=== PATIENT | male | born 1960 | race African-American/Black ===

== ENCOUNTER 2017-10-04 07:24 | Emergency (ER) | payer MEDICAID ==
[~2017-10-04] VITALS: Ht 188 cm; Wt 79.4 kg
[2017-10-04] MEDS ORDERED: Albuterol ud Inhalation ONE (07:26)
[2017-10-04] MEDS ORDERED: Ipratropium 0.02% Inh Soln 2.5ml UD HHN ONE (07:30)
[2017-10-04] MEDS ORDERED: Albuterol ud Inhalation HHN ONE ×2 (07:30)
[2017-10-04 07:47] LABS: BASOPHILS % (AUTO) 2.6 % (0.0-2.0); EOSINOPHILS % (AUTO) 9.2 % (0.0-3.0); HEMATOCRIT 44.4 % (42.0-52.0); HEMOGLOBIN 14.5 G/DL (14.2-18.0); LYMPHOCYTES % (AUTO) 27.6 % (20.0-45.0); MEAN CORPUSCULAR VOLUME 85 FL (80-99); MONOCYTES % (AUTO) 8.2 % (1.0-10.0); NEUTROPHILS % (AUTO) 52.4 % (45.0-75.0); PLATELET COUNT 160 K/UL (150-450); RED BLOOD COUNT 5.25 M/UL (4.70-6.10); RED CELL DISTRIBUTION WIDTH 13.7 % (11.6-14.8); WHITE BLOOD COUNT 4.5 K/UL (4.8-10.8)
[2017-10-04 07:50] VITALS: BP 142/87
[2017-10-04 08:18] LABS: ANION GAP 7 mmol/L (5-15); BLOOD UREA NITROGEN 15 mg/dL (7-18); CALCIUM 9.3 MG/DL (8.5-10.1); CARBON DIOXIDE 26 MMOL/L (21-32); CHLORIDE 104 MMOL/L (98-107); SODIUM 137 MMOL/L (136-145)
--- NOTE | 2017-10-04 08:18 | Emergency Room Report ---
History of Present Illness General Chief Complaint: Dyspnea/Respdistress Source: Patient Present Illness HPI This patient is brought in by EMS for respiratory distress. This patient has a history of COPD and asthma. He states he only uses an albuterol inhaler. He states that over the past couple days he has had tightness in his chest and shortness of breath consistent with a COPD exacerbation. He states that this morning about 3 hours ago he had sudden and severe worsening of his symptoms. He has had cough but denies sputum production. He denies fever or chills. He denies nausea or vomiting. He denies chest pain. He states that he stopped smoking one month ago. He has no other complaints. Allergies: Coded Allergies: No Known Allergies (Unverified , 10/04/17) Patient History Past Medical History: see triage record, asthma, COPD Social History: Denies: smoking - Quit 1 month ago, alcohol use, drug use Reviewed Nursing Documentation: PMH: Agreed; PSxH: Agreed Nursing Documentation-PMH Hx Asthma: Yes Hx COPD: Yes Review of Systems All Other Systems: negative except mentioned in HPI Physical Exam Vital Signs Date Time Temp Pulse Resp B/P (MAP) Pulse Ox O2 Delivery O2 Flow Rate FiO2 10/04/17 07:17 97.9 76 15 143/73 100 Room Air 97.9 10/04/17 07:35 21 Sp02 EP Interpretation: reviewed, normal General Appearance: no apparent distress, alert, GCS 15, non-toxic Head: normocephalic, atraumatic Eyes: bilateral eye normal inspection, bilateral eye PERRL ENT: hearing grossly normal, normal pharynx, no angioedema, normal voice Neck: full range of motion, supple/symm/no masses Respiratory: chest non-tender, respiratory distress, accessory muscle use, wheezing, expiration Cardiovascular #1: no edema, tachycardia Gastrointestinal: normal inspection, non-distended Rectal: deferred Musculoskeletal: back normal, gait/station normal, normal range of motion Neurologic: alert, oriented x3, responsive, motor strength/tone normal, sensory intact, speech normal Psychiatric: judgement/insight normal, memory normal, mood/affect normal, no suicidal/homicidal ideation Skin: normal color, no rash, warm/dry, well hydrated Medical Decision Making Diagnostic Impression: Primary Impression: COPD exacerbation ER Course This patient has a clinical presentation consistent with COPD/asthma exacerbation. Patient has a history of COPD and has wheezing on physical exam. The patient was given albuterol and Atrovent nebulizer treatments. The patient was also given prednisone orally. The patient had significant improvement in subjective shortness of breath. The patient's lung exam improved significantly. I will also treat the patient with a course of antibiotics as this has been shown to improve the course of an asthma/COPD exacerbation. The patient declined a chest x-ray. The patient was given close return precautions and followup instructions. Laboratory Tests Test 10/04/17 07:30 White Blood Count 4.5 K/UL (4.8-10.8) L Red Blood Count 5.25 M/UL (4.70-6.10) Hemoglobin 14.5 G/DL (14.2-18.0) Hematocrit 44.4 % (42.0-52.0) Mean Corpuscular Volume 85 FL (80-99) Mean Corpuscular Hemoglobin 27.6 PG (27.0-31.0) Mean Corpuscular Hemoglobin Concent 32.7 G/DL (32.0-36.0) Red Cell Distribution Width 13.7 % (11.6-14.8) Platelet Count 160 K/UL (150-450) Mean Platelet Volume 8.4 FL (6.5-10.1) Neutrophils (%) (Auto) 52.4 % (45.0-75.0) Lymphocytes (%) (Auto) 27.6 % (20.0-45.0) Monocytes (%) (Auto) 8.2 % (1.0-10.0) Eosinophils (%) (Auto) 9.2 % (0.0-3.0) H Basophils (%) (Auto) 2.6 % (0.0-2.0) H Sodium Level 137 MMOL/L (136-145) Potassium Level 5.0 MMOL/L (3.5-5.1) Chloride Level 104 MMOL/L (98-107) Carbon Dioxide Level 26 MMOL/L (21-32) Anion Gap 7 mmol/L (5-15) Blood Urea Nitrogen 15 mg/dL (7-18) Creatinine 1.0 MG/DL (0.55-1.30) Estimate Glomerular Filtration Rate > 60 mL/min (>60) Glucose Level 104 MG/DL (74-106) Calcium Level 9.3 MG/DL (8.5-10.1) Total Bilirubin 0.8 MG/DL (0.2-1.0) Aspartate Amino Transferase (AST) 43 U/L (15-37) H Alanine Aminotransferase (ALT) 34 U/L (12-78) Alkaline Phosphatase 118 U/L (46-116) H Total Protein 7.8 G/DL (6.4-8.2) Albumin 3.5 G/DL (3.4-5.0) Globulin 4.3 g/dL Albumin/Globulin Ratio 0.8 (1.0-2.7) L Laboratory Tests Test 10/04/17 07:30 White Blood Count 4.5 K/UL (4.8-10.8) L Red Blood Count 5.25 M/UL (4.70-6.10) Hemoglobin 14.5 G/DL (14.2-18.0) Hematocrit 44.4 % (42.0-52.0) Mean Corpuscular Volume 85 FL (80-99) Mean Corpuscular Hemoglobin 27.6 PG (27.0-31.0) Mean Corpuscular Hemoglobin Concent 32.7 G/DL (32.0-36.0) Red Cell Distribution Width 13.7 % (11.6-14.8) Platelet Count 160 K/UL (150-450) Mean Platelet Volume 8.4 FL (6.5-10.1) Neutrophils (%) (Auto) 52.4 % (45.0-75.0) Lymphocytes (%) (Auto) 27.6 % (20.0-45.0) Monocytes (%) (Auto) 8.2 % (1.0-10.0) Eosinophils (%) (Auto) 9.2 % (0.0-3.0) H Basophils (%) (Auto) 2.6 % (0.0-2.0) H Sodium Level Pending Potassium Level Pending Chloride Level Pending Carbon Dioxide Level Pending Blood Urea Nitrogen Pending Creatinine Pending Estimate Glomerular Filtration Rate Pending Glucose Level Pending Calcium Level Pending Total Bilirubin Pending Aspartate Amino Transferase (AST) Pending Alanine Aminotransferase (ALT) Pending Alkaline Phosphatase Pending Total Protein Pending Albumin Pending Globulin Pending EKG Diagnostic Results Rate: normal Rhythm: NSR ST Segments: no acute changes Rhythm Strip Diag. Results EP Interpretation: yes Rate: 60's Rhythm: NSR, no PVC's, no ectopy Chest X-Ray Diagnostic Results Chest X-Ray Diagnostic Results : Indication: Shortness of Breath Last Vital Signs Date Time Temp Pulse Resp B/P (MAP) Pulse Ox O2 Delivery O2 Flow Rate FiO2 10/04/17 07:39 89 29 Room Air 21 10/04/17 07:35 100 10/04/17 07:17 97.9 143/73 97.9 Status: improved Disposition: HOME, SELF-CARE Scripts Azithromycin* (ZITHROMAX*) 250 Mg Tablet 250 MG ORAL see instructions, #6 TAB 0 Refills Take two tables once daily for 1 day, then one tablet once daily for 4 days. Prov: Ashley Lowe DO 10/04/17 Prednisone* (PREDNISONE*) 20 Mg Tablet 60 MG ORAL DAILY, #12 TAB Prov: Ashley Lowe DO 10/04/17 Albuterol Sulfate* (ALBUTEROL SULFATE MDI*) 8.5 Gm Hfa.aer.ad 2 PUFF INH Q4H PRN for cough/wheezing, #1 EA 0 Refills Prov: Ashley Lowe DO 10/04/17 Ashley Lowe DO Oct 04, 2017 08:18
[2017-10-04] MEDS ORDERED: PREDNISONE20 MG ORAL (08:22)
[2017-10-04] MEDS ORDERED: ALBUTEROL SULF8.5 GM INH (08:22)
[2017-10-04] MEDS ORDERED: ZITHROMAX250 MG ORAL (08:22)
[2017-10-04 08:23] LABS: ALANINE AMINOTRANSFERASE 34 U/L (12-78); ALBUMIN 3.5 G/DL (3.4-5.0); ALBUMIN/GLOBULIN RATIO 0.8 (1.0-2.7); ALKALINE PHOSPHATASE 118 U/L (46-116); ASPARTATE AMINO TRANSFERASE 43 U/L (15-37); BILIRUBIN,TOTAL 0.8 MG/DL (0.2-1.0)
[2017-10-04 09:00] VITALS: BP 142/87
--- NOTE | 2017-10-04 09:09 | Diagnostic Imaging Report ---
History: SOB Exam: XR CXR 1 VIEW Comparison: None available FINDINGS: The lungs are clear. The cardiac and mediastinal contours appear within limits. Flowing appearing right-sided thoracic osteophyte formation. IMPRESSION: No evidence of acute disease.
== END 2017-10-04 09:00 | disposition home or self-care (01) ==
LOC: EDBD 07:24 → EMR 07:30
DX: J44.1 Chronic obstructive pulmonary disease with (acute) exacerbation (principal)
CPT/HCPCS: 36415; 71045; 80053; 85025; 93005; 94640; 94664; 99284; J7512

== ENCOUNTER 2017-12-04 01:06 | Emergency (ER) | payer MEDICAID ==
[~2017-12-04] VITALS: Ht 188 cm; Wt 74.8 kg
[~2017-12-04 01:06] MED LIST: ALBUTEROL SULF8.5 GM INH; PREDNISONE20 MG ORAL; ZITHROMAX250 MG ORAL
--- NOTE | 2017-12-04 01:10 | Emergency Room Report ---
History of Present Illness General Chief Complaint: Dyspnea/Respdistress Source: Patient, EMS Present Illness HPI Patient is a 57-year-old male who presented after increased difficulty breathing. Patient brought in by EMS. The patient noted to have been increased shortness breath. He reports prior history of COPD. Allergies: Coded Allergies: No Known Allergies (Unverified , 10/04/17) Patient History Past Medical History: see triage record Reviewed Nursing Documentation: PMH: Agreed; PSxH: Agreed Nursing Documentation-PMH Past Medical History: No History, Except For Hx Asthma: Yes Hx COPD: Yes Review of Systems All Other Systems: negative except mentioned in HPI Physical Exam Vital Signs Date Time Temp Pulse Resp B/P (MAP) Pulse Ox O2 Delivery O2 Flow Rate FiO2 12/04/17 01:06 97.9 93 28 130/104 100 Room Air 97.9 Sp02 EP Interpretation: reviewed, normal General Appearance: normal inspection, alert, GCS 15, moderate distress, Chronically Ill Head: atraumatic ENT: normal ENT inspection, hearing grossly normal, normal voice Neck: normal inspection, full range of motion, supple, no bony tend Respiratory: normal inspection, no retraction, accessory muscle use, wheezing Cardiovascular #1: regular rate, rhythm, no edema Gastrointestinal: normal inspection, normal bowel sounds, non tender, soft, no guarding, no hernia Genitourinary: no CVA tenderness Musculoskeletal: normal inspection, back normal, normal range of motion Neurologic: normal inspection, alert, oriented x3, responsive, positive printer operator III-XII nml as tested, speech normal Psychiatric: normal inspection, judgement/insight normal, mood/affect normal Skin: normal inspection, normal color, no rash Medical Decision Making Diagnostic Impression: Primary Impression: COPD exacerbation ER Course patient presented for shortness of breath. Differential included but was not limited to anemia, pneumonia, pneumothorax, myocardial infarction, pericardial effusion, congestive heart failure, acidosis. The EKG interpreted by me showed normal sinus rhythm without acute ST or T wave changes. Patient was given steroids as well as breathing treatment with improvement in symptoms. The patient was noted be feeling better. Patient was discharged home. He is advised follow-up with his primary care physician for reexamination. Last Vital Signs Date Time Temp Pulse Resp B/P (MAP) Pulse Ox O2 Delivery O2 Flow Rate FiO2 12/04/17 01:06 97.9 93 28 130/104 100 Room Air 97.9 Status: improved Disposition: HOME, SELF-CARE Condition: Stable Scripts Prednisone* (PREDNISONE*) 20 Mg Tablet 40 MG ORAL DAILY, #10 TAB Prov: Jefferson Spaulding MD 12/04/17 Albuterol Sulfate* (ALBUTEROL SULFATE MDI*) 8.5 Gm Hfa.aer.ad 2 PUFF INH Q4H PRN for cough/wheezing, #1 EA 0 Refills Prov: Jefferson Spaulding MD 12/04/17 Jefferson Spaulding MD Dec 04, 2017 01:10
[2017-12-04] MEDS ORDERED: Albuterol/Ipratropium 3ml neb HHN ONE (01:15)
[2017-12-04] MEDS ORDERED: Solu-MEDROL 125mg Inj IVP ONE (01:15)
[2017-12-04] MEDS ORDERED: Albuterol ud Inhalation HHN ONE (02:15)
[2017-12-04 02:34] VITALS: BP 121/87
[2017-12-04] MEDS ORDERED: ALBUTEROL SULF8.5 GM INH (03:31)
[2017-12-04] MEDS ORDERED: PREDNISONE20 MG ORAL (03:31)
[2017-12-04 04:48] VITALS: BP 115/75
--- NOTE | 2017-12-04 10:32 | Diagnostic Imaging Report ---
Indication: Shortness of breath Technique: One view of the chest Comparison: 11/21/2017 Findings: Lungs and pleural spaces are clear. The heart size is normal. There are degenerative changes of the thoracic spine. No significant change Impression: No acute process
== END 2017-12-04 04:35 | disposition home or self-care (01) ==
LOC: EDBD 01:06 → EMR 01:30
DX: J44.1 Chronic obstructive pulmonary disease with (acute) exacerbation (principal); R06.02 Shortness of breath
CPT/HCPCS: 71045; 93005; 94640; 94664; 96374; 99284; J2930; J7620

== ENCOUNTER 2018-01-17 23:08 | Emergency (ER) | payer MEDICAID ==
[~2018-01-17] VITALS: Ht 182.9 cm; Wt 78.9 kg
[2018-01-17] MEDS ORDERED: Solu-MEDROL 125mg Inj IVP ONE (23:15)
[2018-01-17] MEDS ORDERED: Albuterol/Ipratropium 3ml neb HHN ONE (23:15)
[2018-01-18] VITALS: BP 123/77
--- NOTE | 2018-01-18 01:06 | Emergency Room Report ---
History of Present Illness General Chief Complaint: Dyspnea/Respdistress Source: Patient Present Illness HPI 57BM c/o dyspnea today. Last prednisone use two days ago, has been on at least one month. +COPD history, seen here mid November for same. Pt. states uses inhaler regularly, no neb at home. +cocaine use. No fever, no change/increase cough. No travel history, no calf pain/swelling. Pt. does not know names of meds. Allergies: Coded Allergies: No Known Allergies (Unverified , 10/04/17) Nursing Documentation-H Past Medical History: No History, Except For Hx Asthma: Yes Hx COPD: Yes Review of Systems Constitutional: Reports: see HPI Eye: Reports: no symptoms ENT: Reports: no symptoms Respiratory: Reports: see HPI, cough, orthopnea, shortness of breath, wheezing Cardiovascular: Reports: no symptoms Gastrointestinal: Reports: no symptoms Genitourinary: Reports: no symptoms Musculoskeletal: Reports: no symptoms Skin: Reports: no symptoms Psychiatric: Reports: no symptoms Neurological: Reports: no symptoms Endocrine: Reports: no symptoms Hematologic/Lymphatic: Reports: no symptoms Allergic: Reports: no symptoms All Other Systems: negative except mentioned in HPI Physical Exam Vital Signs Date Time Temp Pulse Resp B/P (MAP) Pulse Ox O2 Delivery O2 Flow Rate FiO2 01/17/18 23:07 168/91 01/17/18 23:28 96 32 97 Facial 30 01/18/18 00:00 98.4 Sp02 EP Interpretation: reviewed, normal General Appearance: normal inspection, alert, GCS 15, moderate distress Head: normocephalic, atraumatic Eyes: bilateral eye normal inspection, bilateral eye PERRL, bilateral eye EOMI ENT: normal ENT inspection, hearing grossly normal, normal pharynx, no angioedema, normal voice, moist mucus membranes Neck: normal inspection, full range of motion, supple, no meningismus, no bony tend Respiratory: no rhonchi, respiratory distress, accessory muscle use, wheezing Cardiovascular #1: normal inspection, regular rate, rhythm, no edema Gastrointestinal: normal inspection, normal bowel sounds, non tender, soft, no mass, non-distended Musculoskeletal: gait/station normal, normal range of motion Neurologic: normal inspection, alert, oriented x3, responsive, motor strength/ tone normal Psychiatric: memory normal, anxious, other - agitated Suicide Risk Assessment: Suicidal Ideation: No Had intent to initiate attempt: No Pt's plan for suicide attempt: No Has means to complete attempt: No Skin: normal inspection, normal color, no rash, warm/dry Medical Decision Making Diagnostic Impression: Primary Impression: COPD exacerbation ER Course This patient has been fairly difficult. He kept moving during blood draw and finally refused. He had received three rounds of Albuterol prior to arrival and I gave him an additional Duoneb here and CPAP and then oral prednisone. His breathing improved substantially and I think a lot of his distress is related to sudden withdrawal of prednisone. CXR without infiltrate and no significant cough or fever here. There is undoubtedly cocaine and general noncompliance, however, pt. is ok for d/c on prednisone. I re-examined him while he was sleeping and his lungs are clear. When informed of discharge he acted like he was sob but he was ambulatory and there was no actual distress. I doubt patient will be compliant and it is highly likely he will return due to his noncompliance and drug use. EKG Diagnostic Results EP Interpretation: 11 pm: NSR 101 Rate: tachycardiac ST Segments: no acute changes ASA given to the pt in ED: No Rhythm Strip Diag. Results Rhythm Strip Time: 01:13 EP Interpretation: yes Rate: 71 Rhythm: NSR Chest X-Ray Diagnostic Results Chest X-Ray Diagnostic Results : Chest X-Ray Ordered: Yes # of Views/Limited/Complete: 1 View Indication: Shortness of Breath EP Interpretation: Yes Interpretation: no consolidation, no effusion, no pneumothorax, no acute cardiopulmonary disease, other - flattened hemidiaphragms, no infiltrate Last Vital Signs Date Time Temp Pulse Resp B/P (MAP) Pulse Ox O2 Delivery O2 Flow Rate FiO2 01/18/18 01:30 71 20 100 Facial 30 01/18/18 01:30 98.4 126/77 Status: improved Disposition: HOME, SELF-CARE Condition: Stable Scripts Albuterol Sulfate* (ALBUTEROL SULFATE MDI*) 8.5 Gm Hfa.aer.ad 2 PUFF INH Q4H PRN for cough/wheezing, #1 EA 5 Refills Prov: Mark García M.D. 01/18/18 Prednisone* (PREDNISONE*) 20 Mg Tablet 20 MG ORAL DAILY, #20 TAB Prov: Mark García M.D. 01/18/18 Referrals: NOT CHOSEN [facility]/,REFERRING (PCP) Patient Instructions: Chronic Obstructive Pulmonary Disease Exacerbation Mark García M.D. Jan 18, 2018 01:06
[2018-01-18] MEDS ORDERED: PREDNISONE20 MG ORAL (01:15)
[2018-01-18] MEDS ORDERED: ALBUTEROL SULF8.5 GM INH (01:15)
[2018-01-18 01:30] VITALS: BP 126/77
[2018-01-18 01:38] VITALS: BP 126/77
[2018-01-19] MEDS ORDERED: VENTOLIN HFA18 GM INH (21:57)
[2018-01-19] MEDS ORDERED: PREDNISOLO15 MG/5 M1 ORAL (21:58)
== END 2018-01-18 01:38 | disposition home or self-care (01) ==
LOC: EDBD 23:08 → EMR 23:55
DX: J44.1 Chronic obstructive pulmonary disease with (acute) exacerbation (principal)
CPT/HCPCS: 71045; 93005; 99283; J7512

== ENCOUNTER 2018-01-19 22:02 | Emergency (ER) | payer MEDICAID ==
[~2018-01-19] VITALS: Ht 188 cm; Wt 79.4 kg
[~2018-01-19 22:02] MED LIST changes: +PREDNISOLO15 MG/5 M1 ORAL; +VENTOLIN HFA18 GM INH
[2018-01-19 22:10] VITALS: BP 136/84
--- NOTE | 2018-01-19 22:12 | Emergency Room Report ---
History of Present Illness General Chief Complaint: Dyspnea/Respdistress Source: Patient, Medical Record, EMS Present Illness HPI This is a 57-year-old male with history of asthma/COPD. Also history of cocaine abuse which he said he quit couple months ago. He is also a smoker when she claimed he quit 2 weeks ago. He presents with chief complaint shortness of breath. Onset tonight. He was here recently. Per EMS he called 911 frequently for shortness of breath. He was wheezing and short of breath so they gave him albuterol 5 mg. Denies any fever chills. Denies any nausea vomiting. Worse with exertion. Worse with inspiration. Said his inhaler is not helping. Denies any other complaint. Never been intubated. Allergies: Coded Allergies: No Known Allergies (Unverified , 10/04/17) Patient History Past Medical History: see triage record, old chart reviewed, asthma, COPD Past Surgical History: none Pertinent Family History: none Social History: Reports: smoking, drug use Immunizations: other Reviewed Nursing Documentation: PMH: Agreed; PSxH: Agreed Nursing Documentation-PMH Past Medical History: No History, Except For Hx Asthma: Yes Hx COPD: Yes Review of Systems Eye: Denies: eye pain, blurred vision ENT: Denies: ear pain, nose congestion, throat swelling Respiratory: Reports: cough, shortness of breath, wheezing Cardiovascular: Denies: chest pain, palpitations Gastrointestinal: Denies: abdominal pain, diarrhea, nausea, vomiting Musculoskeletal: Denies: back pain, joint pain Skin: Denies: rash Neurological: Denies: headache, numbness Endocrine: Denies: increased thirst, increased urine Hematologic/Lymphatic: Denies: easy bruising All Other Systems: negative except mentioned in HPI Physical Exam Vital Signs Date Time Temp Pulse Resp B/P (MAP) Pulse Ox O2 Delivery O2 Flow Rate FiO2 01/19/18 21:47 98.1 88 26 136/84 98 Non-Rebreather 10.0 vitals with hypoxia Sp02 EP Interpretation: abnormal General Appearance: moderate distress Head: normocephalic, atraumatic Eyes: bilateral eye PERRL, bilateral eye EOMI ENT: hearing grossly normal, normal pharynx Neck: full range of motion, supple, no meningismus Respiratory: chest non-tender, respiratory distress, decreased breath sounds, accessory muscle use, wheezing Cardiovascular #1: regular rate, rhythm, no murmur Gastrointestinal: normal bowel sounds, non tender, no mass, no organomegaly, no bruit, non-distended Musculoskeletal: back normal, gait/station normal, normal range of motion Psychiatric: mood/affect normal Skin: warm/dry Procedures Critical Care Time Critical Care Time Critical care is mandated in this patient who presented with respiratory distress secondary to asthma/COPD exacerbation. Patient require my urgent intervention to attenuate the risks of respiratory collapse which may lead to cardiovascular collapse and . Critical care time is 35 minutes excluding any reportable procedure. Critical care time included evaluation, multiple reevaluation, looking at old charts, interpreting laboratory and diagnostic data , discussing case with patient and family and consultants, and charting. Medical Decision Making Diagnostic Impression: Primary Impression: COPD exacerbation Additional Impressions: Respiratory distress Cocaine abuse ER Course Patient presents with rest or distress secondary COPD exacerbation. This most likely secondary to his noncompliance and also with cocaine/tobacco abuse. He refuse to give a urine sample. Patient improved greatly but never lasted treatment. Patient is stable for transfer to [facility]. I discussed the case with Dr. Whaley who accepted patient for transfer. Lab Results Impression labs unremarkable EKG Diagnostic Results Rate: normal Rhythm: NSR ST Segments: no acute changes Rhythm Strip Diag. Results Rhythm Strip Time: 22:35 EP Interpretation: yes Rate: 93 Rhythm: NSR, no PVC's, no ectopy Chest X-Ray Diagnostic Results Chest X-Ray Diagnostic Results : Chest X-Ray Ordered: Yes # of Views/Limited/Complete: 1 View Indication: Shortness of Breath EP Interpretation: Yes Interpretation: no consolidation, no effusion, no pneumothorax, no acute cardiopulmonary disease Impression: No acute disease Electronically Signed by: Philip Cleaning MD Last Vital Signs Date Time Temp Pulse Resp B/P (MAP) Pulse Ox O2 Delivery O2 Flow Rate FiO2 01/19/18 21:47 98.1 88 26 136/84 98 Non-Rebreather 10.0 Status: improved Disposition: [facility] Condition: Stable Philip Cleaning MD Jan 19, 2018 22:11
[2018-01-19] MEDS ORDERED: Ipratropium 0.02% Inh Soln 2.5ml UD HHN ONE (22:15)
[2018-01-19] MEDS ORDERED: Solu-MEDROL 125mg Inj IVP ONE (22:15)
[2018-01-19] MEDS ORDERED: Albuterol ud Inhalation HHN ONE ×2 (22:15→23:00)
[2018-01-19] MEDS ORDERED: Solu-MEDROL 125mg Inj ONE (22:16)
[2018-01-19 22:42] LABS: BASOPHILS % (AUTO) 2.7 % (0.0-2.0); HEMATOCRIT 43.3 % (42.0-52.0); HEMOGLOBIN 14.3 G/DL (14.2-18.0); LYMPHOCYTES % (AUTO) 10.4 % (20.0-45.0); MEAN CORPUSCULAR VOLUME 85 FL (80-99); MONOCYTES % (AUTO) 5.2 % (1.0-10.0); NEUTROPHILS % (AUTO) 80.7 % (45.0-75.0); PLATELET COUNT 208 K/UL (150-450); RED BLOOD COUNT 5.13 M/UL (4.70-6.10); RED CELL DISTRIBUTION WIDTH 12.4 % (11.6-14.8); WHITE BLOOD COUNT 11.1 K/UL (4.8-10.8)
[2018-01-19 22:44] LABS: ANION GAP 5 mmol/L (5-15); BLOOD UREA NITROGEN 15 mg/dL (7-18); CARBON DIOXIDE 30 MMOL/L (21-32); CHLORIDE 103 MMOL/L (98-107); CREATININE 1.1 MG/DL (0.55-1.30); POTASSIUM 4.7 MMOL/L (3.5-5.1); SODIUM 138 MMOL/L (136-145)
[2018-01-19] MEDS ORDERED: Albuterol ud Inhalation ONE (22:50)
[2018-01-19 22:56] LABS: ALANINE AMINOTRANSFERASE 41 U/L (12-78); ALBUMIN 3.3 G/DL (3.4-5.0); ALBUMIN/GLOBULIN RATIO 0.8 (1.0-2.7); ALKALINE PHOSPHATASE 130 U/L (46-116); ASPARTATE AMINO TRANSFERASE 37 U/L (15-37); BILIRUBIN,TOTAL 0.4 MG/DL (0.2-1.0); CKMB 5.7 NG/ML (0.0-3.6); CREATINE KINASE 239 U/L (26-308)
[2018-01-19 23:30] VITALS: BP 143/78
[2018-01-20 00:15] VITALS: BP 143/78
--- NOTE | 2018-01-20 10:45 | Diagnostic Imaging Report ---
Indication: Dyspnea Comparison: 01/17/2018 A single view chest radiograph was obtained. Findings: Cardiomediastinal appearance is within normal limits for age. The lungs are clear. Pulmonary vascularity is appropriate. The diaphragmatic contour is smooth and costophrenic angles are sharp. No pleural effusions are identified. Multilevel thoracic vertebral endplates noted. Impression: No acute findings
--- NOTE | 2018-01-20 16:40 | Cardiology Report ---
APPROVED REPORT EKG Measurement Heart [id number] Normal sinus rhythm with sinus arrhythmia Possible Left atrial enlargement Right ventricular hypertrophy with repolarization abnormality Anterolateral infarct, age undetermined Abnormal ECG possible arm lead reversal consider repeating the ekg
== END 2018-01-20 00:15 | disposition short-term general hospital (02) ==
LOC: EDBD 22:02 → EMR 22:32
DX: J44.1 Chronic obstructive pulmonary disease with (acute) exacerbation (principal); R06.03 Acute respiratory distress; F14.10 Cocaine abuse, uncomplicated
CPT/HCPCS: 36415; 71045; 80053; 82550; 82553; 84484; 85025; 93005; 94640; 94664; 96361; 96365; 96366; 96375; 99291; J2930

== ENCOUNTER 2018-02-18 22:15 | Emergency (ER) | payer MEDICAID ==
[~2018-02-18] VITALS: Ht 188 cm; Wt 81.6 kg
[2018-02-18] MEDS ORDERED: PREDNISONE5 M4 PO (22:16)
[2018-02-18 22:20] VITALS: BP 149/129
[2018-02-18] MEDS ORDERED: Solu-MEDROL 125mg Inj IM ONE (22:30)
[2018-02-18] MEDS ORDERED: Albuterol ud Inhalation HHN ONE (22:30)
[2018-02-18] MEDS ORDERED: Ipratropium 0.02% Inh Soln 2.5ml UD HHN ONE (22:30)
[2018-02-19 00:03] VITALS: BP 149/89
--- NOTE | 2018-02-19 01:00 | Emergency Room Report ---
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 Reports that he has been short of breath for the past several days Denies any chest pain denies any vomiting Patient has had previous visit here with similar complaints Appears to have underlying COPD as well Patient reports using his albuterol inhaler with minimal relief denies any recent fevers or chills denies any neck pain or photophobia Reports that injection of steroids significantly help him Allergies: Coded Allergies: No Known Allergies (Unverified , 10/04/17) Patient History Past Medical History: see triage record Pertinent Family History: none Reviewed Nursing Documentation: PMH: Agreed; PSxH: Agreed Nursing Documentation-PMH Hx Asthma: Yes Hx COPD: Yes Review of Systems All Other Systems: negative except mentioned in HPI Physical Exam Vital Signs Date Time Temp Pulse Resp B/P (MAP) Pulse Ox O2 Delivery O2 Flow Rate FiO2 02/18/18 22:20 98.8 102 25 149/129 100 Simple Mask 2.0 100 Sp02 EP Interpretation: reviewed, normal General Appearance: other - Initially fairly belligerent with strap machine operator automatic crew not answering questions, later asking further badge and names, does appear short of breath, Head: normocephalic, atraumatic Eyes: bilateral eye PERRL, bilateral eye EOMI ENT: normal pharynx, no angioedema Neck: supple Respiratory: no retraction, no accessory muscle use, wheezing - Bilaterally Cardiovascular #1: regular rate, rhythm, no edema Gastrointestinal: normal bowel sounds, non tender, soft Musculoskeletal: normal inspection Neurologic: alert, oriented x3, responsive Skin: normal color, no rash Lymphatic: no adenopathy Medical Decision Making Diagnostic Impression: Primary Impression: Shortness of breath ER Course Patient is a fairly complex patient with multiple differential to consideration including but not limited to cardiac cardiopulmonary and vascular emergencies She reports previous history of COPD appears to be likely having an exacerbation of this Patient has done significantly better with acute intervention Prolonged observation in the emergency room with repeat breathing treatment At this time is stable for close outpatient follow-up Rhythm Strip Diag. Results EP Interpretation: yes Rate: 88 Rhythm: NSR, no PVC's, no ectopy Last Vital Signs Date Time Temp Pulse Resp B/P (MAP) Pulse Ox O2 Delivery O2 Flow Rate FiO2 12/5/18 22:56 114 21 100 Room Air 21 02/18/18 22:20 98.8 149/129 2.0 Status: improved Disposition: HOME, SELF-CARE Condition: Improved Scripts Methylprednisolone (Methylprednisolone*) 4MG Dspk 4 MG ORAL DIRECTED for 6 Days, #21 EA 0 Refills Day 1: Two tablets before breakfast, one after lunch, one after dinner, and two at bedtime. If started late in the day, take all six tablets at once or divide into two or three doses, unless otherwise directed by prescriber. Day 2: One tablet before breakfast, one after lunch, one after dinner, and two at bedtime Day 3: One tablet before breakfast, one after lunch, one after dinner, and one at bedtime Day 4: One tablet before breakfast, one after lunch, and one at bedtime Day 5: One tablet before breakfast and one at bedtime Day 6: One tablet before breakfast Prov: Ti Vila DO 02/19/18 Albuterol Sulfate* (ALBUTEROL SULFATE MDI*) 8.5 Gm Hfa.aer.ad 2 PUFF INH Q6H, #1 EA 0 Refills Prov: Ti Vila DO 02/19/18 Referrals: [facility],REFERRING (PCP) Additional Instructions: Patient is provided with the discharge instructions notified to follow up with primary doctor in the next 2-3 days otherwise return to the er with any worsening symptoms. Please note that this report is being documented using DRAGON technology. This can lead to erroneous entry secondary to incorrect interpretation by the dictating instrument. Ti Vila DO Feb 19, 2018 01:00
[2018-02-19] MEDS ORDERED: Albuterol ud Inhalation HHN ONE (01:45)
[2018-02-19] MEDS ORDERED: DiphenhydrAMINE 25mg/10ml Elixir ORAL ONE (01:45)
[2018-02-19 01:47] VITALS: BP 147/87
[2018-02-19 03:36] VITALS: BP 142/78
[2018-02-19 03:57] VITALS: BP 134/100
[2018-02-19 04:56] VITALS: BP 105/52
[2018-02-19] MEDS ORDERED: ALBUTEROL SULF8.5 GM INH (05:35)
[2018-02-19] MEDS ORDERED: MEDROL DOSEPAK4 MG ORAL (05:35)
[2018-02-19 05:40] VITALS: BP 124/52
== END 2018-02-19 05:40 | disposition home or self-care (01) ==
LOC: EDBD 22:15 → EMR 22:34
DX: J44.9 Chronic obstructive pulmonary disease, unspecified (principal)
CPT/HCPCS: 94640; 94664; 96372; 99284; J2930

== ENCOUNTER 2018-04-17 07:14 | Emergency (ER) | payer MEDICAID ==
[~2018-04-17] VITALS: Ht 188 cm; Wt 77.1 kg
[~2018-04-17 07:14] MED LIST changes: +MEDROL DOSEPAK4 MG ORAL; +PREDNISONE5 M4 PO
[2018-04-17] MEDS ORDERED: UNOBMED (07:18)
[2018-04-17 07:21] VITALS: BP 157/88
--- NOTE | 2018-04-17 07:39 | Emergency Room Report ---
History of Present Illness General Chief Complaint: Asthma Source: Patient, Medical Record Present Illness HPI Patient presents with reports of chest tightness and shortness of breath Patient has a history of COPD Still smoking Denies any vomiting or diarrhea denies any fevers or chills Patient reports that his inhaler was not helping very much at home Chest pain is a tightness and associated with his COPD denies any flank pain denies any recent travel Allergies: Coded Allergies: No Known Allergies (Unverified , 10/04/17) Patient History Past Medical History: see triage record Pertinent Family History: none Reviewed Nursing Documentation: PMH: Agreed; PSxH: Agreed Nursing Documentation-PM Past Medical History: No History, Except For Hx Cardiac Problems: No - hyperthyroidism Hx Asthma: Yes Hx COPD: Yes Hx Gastrointestinal Problems: No - ABD surgery on 2013 Review of Systems All Other Systems: negative except mentioned in HPI Physical Exam Vital Signs Date Time Temp Pulse Resp B/P (MAP) Pulse Ox O2 Delivery O2 Flow Rate FiO2 04/17/18 07:11 85 18 148/105 100 Room Air Sp02 EP Interpretation: reviewed, normal General Appearance: moderate distress - Short of breath Head: normocephalic, atraumatic Eyes: bilateral eye PERRL, bilateral eye EOMI ENT: hearing grossly normal, normal pharynx, TMs + canals normal, uvula midline Neck: full range of motion, supple, no meningismus, no bony tend Respiratory: no retraction, no accessory muscle use, wheezing - Bilaterally appears short of breath tachypneic appears in mild distress Cardiovascular #1: normal peripheral pulses, regular rate, rhythm, no edema, no gallop, no JVD, no murmur Gastrointestinal: normal bowel sounds, non tender, soft, no mass, no organomegaly, non-distended, no guarding, no hernia, no pulsatile mass, no rebound Genitourinary: no CVA tenderness Musculoskeletal: normal inspection Neurologic: oriented x3, 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, [employer]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, motor strength/ tone normal, sensory intact Psychiatric: mood/affect normal Skin: normal color, no rash, warm/dry, palpation normal Lymphatic: normal inspection, no adenopathy Procedures Critical Care Time Critical Care Time 50 minutes for multiple re-evaluations initial critical presentation concerning for respiratory failure not including any procedural time Medical Decision Making Diagnostic Impression: Primary Impression: Asthma Additional Impressions: COPD exacerbation Drug abuse ER Course Patient is a fairly complex patient with multiple differential to consideration including but not limited to cardiac cardiopulmonary and vascular emergencies Patient appears to have a flare of his underlying asthma/COPD After further breathing treatments and steroids patient has started to feel significantly He is asking to be discharged home reports that his breathing is better Requesting steroids and albuterol I did discuss with the patient regarding his urine drug screen and he does admit to cocaine abuse he was discussed regarding the need to terminate this activity as it can have deadly consequences Labs Test 04/17/18 07:35 04/17/18 08:54 White Blood Count 5.4 K/UL (4.8-10.8) Red Blood Count 5.33 M/UL (4.70-6.10) Hemoglobin 14.3 G/DL (14.2-18.0) Hematocrit 45.5 % (42.0-52.0) Mean Corpuscular Volume 85 FL (80-99) Mean Corpuscular Hemoglobin 26.9 PG (27.0-31.0) Mean Corpuscular Hemoglobin Concent 31.6 G/DL (32.0-36.0) Red Cell Distribution Width 14.4 % (11.6-14.8) Platelet Count 195 K/UL (150-450) Mean Platelet Volume 7.2 FL (6.5-10.1) Neutrophils (%) (Auto) 63.1 % (45.0-75.0) Lymphocytes (%) (Auto) 19.0 % (20.0-45.0) Monocytes (%) (Auto) 8.6 % (1.0-10.0) Eosinophils (%) (Auto) 7.2 % (0.0-3.0) Basophils (%) (Auto) 2.1 % (0.0-2.0) Sodium Level 139 MMOL/L (136-145) Potassium Level 4.3 MMOL/L (3.5-5.1) Chloride Level 105 MMOL/L (98-107) Carbon Dioxide Level 32 MMOL/L (21-32) Anion Gap 3 mmol/L (5-15) Blood Urea Nitrogen 17 mg/dL (7-18) Creatinine 1.0 MG/DL (0.55-1.30) Estimat Glomerular Filtration Rate > 60 mL/min (>60) Glucose Level 120 MG/DL (74-106) Calcium Level 8.0 MG/DL (8.5-10.1) Total Bilirubin 0.3 MG/DL (0.2-1.0) Aspartate Amino Transf (AST/SGOT) 32 U/L (15-37) Alanine Aminotransferase (ALT/SGPT) 41 U/L (12-78) Alkaline Phosphatase 113 U/L (46-116) Total Creatine Kinase 186 U/L (26-308) Creatine Kinase MB 7.2 NG/ML (0.0-3.6) Creatine Kinase MB Relative Index 3.8 Troponin I 0.018 ng/mL (0.000-0.056) Total Protein 6.8 G/DL (6.4-8.2) Albumin 3.2 G/DL (3.4-5.0) Globulin 3.6 g/dL Albumin/Globulin Ratio 0.9 (1.0-2.7) Urine Opiates Screen Negative (NEGATIVE) Urine Barbiturates Screen Negative (NEGATIVE) Phencyclidine (PCP) Screen Negative (NEGATIVE) Urine Amphetamines Screen Positive (NEGATIVE) Urine Benzodiazepines Screen Negative (NEGATIVE) Urine Cocaine Screen Positive (NEGATIVE) Urine Marijuana (THC) Screen Negative (NEGATIVE) Rhythm Strip Diag. Results EP Interpretation: yes Rate: 90 Rhythm: NSR, no PVC's, no ectopy Chest X-Ray Diagnostic Results Chest X-Ray Diagnostic Results : Chest X-Ray Ordered: Yes # of Views/Limited/Complete: 1 View Indication: Shortness of Breath EP Interpretation: Yes Interpretation: no consolidation, no effusion, no pneumothorax Impression: No acute disease Electronically Signed by: iT Vila DO Last Vital Signs Date Time Temp Pulse Resp B/P (MAP) Pulse Ox O2 Delivery O2 Flow Rate FiO2 04/17/18 07:11 85 18 148/105 100 Room Air Status: improved Disposition: HOME, SELF-CARE Condition: Improved Scripts Methylprednisolone (Methylprednisolone*) 4MG Dspk 4 MG ORAL DIRECTED for 6 Days, #21 EA 0 Refills Day 1: Two tablets before breakfast, one after lunch, one after dinner, and two at bedtime. If started late in the day, take all six tablets at once or divide into two or three doses, unless otherwise directed by prescriber. Day 2: One tablet before breakfast, one after lunch, one after dinner, and two at bedtime Day 3: One tablet before breakfast, one after lunch, one after dinner, and one at bedtime Day 4: One tablet before breakfast, one after lunch, and one at bedtime Day 5: One tablet before breakfast and one at bedtime Day 6: One tablet before breakfast Prov: Ti Vila DO 04/17/18 Albuterol Sulfate* (ALBUTEROL SULFATE MDI*) 8.5 Gm Hfa.aer.ad 2 PUFF INH Q6H, #1 EA 0 Refills Prov: Ti Vila DO 04/17/18 Additional Instructions: Patient is provided with the discharge instructions notified to follow up with primary doctor in the next 2-3 days otherwise return to the er with any worsening symptoms. Please note that this report is being documented using [employer] technology. This can lead to erroneous entry secondary to incorrect interpretation by the dictating instrument. Ti Vila DO Apr 17, 2018 07:39
[2018-04-17] MEDS ORDERED: Solu-MEDROL 125mg Inj IVP ONE (07:45)
[2018-04-17] MEDS ORDERED: Albuterol ud Inhalation HHN ONE ×2 (07:45→09:30)
[2018-04-17] MEDS ORDERED: Ipratropium 0.02% Inh Soln 2.5ml UD HHN ONE (07:45)
[2018-04-17 07:47] LABS: BASOPHILS % (AUTO) 2.1 % (0.0-2.0); EOSINOPHILS % (AUTO) 7.2 % (0.0-3.0); HEMATOCRIT 45.5 % (42.0-52.0); HEMOGLOBIN 14.3 G/DL (14.2-18.0); MEAN CORPUSCULAR VOLUME 85 FL (80-99); MONOCYTES % (AUTO) 8.6 % (1.0-10.0); NEUTROPHILS % (AUTO) 63.1 % (45.0-75.0); PLATELET COUNT 195 K/UL (150-450); RED BLOOD COUNT 5.33 M/UL (4.70-6.10); RED CELL DISTRIBUTION WIDTH 14.4 % (11.6-14.8); WHITE BLOOD COUNT 5.4 K/UL (4.8-10.8)
[2018-04-17 07:57] LABS: ANION GAP 3 mmol/L (5-15); BLOOD UREA NITROGEN 17 mg/dL (7-18); CARBON DIOXIDE 32 MMOL/L (21-32); CHLORIDE 105 MMOL/L (98-107); POTASSIUM 4.3 MMOL/L (3.5-5.1); SODIUM 139 MMOL/L (136-145)
[2018-04-17 08:11] LABS: ALANINE AMINOTRANSFERASE 41 U/L (12-78); ALBUMIN 3.2 G/DL (3.4-5.0); ALBUMIN/GLOBULIN RATIO 0.9 (1.0-2.7); ALKALINE PHOSPHATASE 113 U/L (46-116); ASPARTATE AMINO TRANSFERASE 32 U/L (15-37); BILIRUBIN,TOTAL 0.3 MG/DL (0.2-1.0); CKMB 7.2 NG/ML (0.0-3.6); CREATINE KINASE 186 U/L (26-308)
[2018-04-17 09:35] VITALS: BP 145/80
--- NOTE | 2018-04-17 09:56 | Diagnostic Imaging Report ---
Indication: Shortness of breath Technique: One view of the chest Comparison: 01/19/2018 Findings: Lungs and pleural spaces are clear. Heart size is normal. The aorta is elongated. There are degenerative changes of the thoracic spine No significant change Impression: No acute process
[2018-04-17] MEDS ORDERED: MEDROL DOSEPAK4 MG ORAL (10:46)
[2018-04-17] MEDS ORDERED: ALBUTEROL SULF8.5 GM INH (10:46)
[2018-04-17 11:05] VITALS: BP 114/91
== END 2018-04-17 11:05 | disposition home or self-care (01) ==
LOC: EDBD 07:14 → EMR 07:50
DX: J44.1 Chronic obstructive pulmonary disease with (acute) exacerbation (principal); E05.90 Thyrotoxicosis, unspecified without thyrotoxic crisis or storm; F19.10 Other psychoactive substance abuse, uncomplicated
CPT/HCPCS: 36415; 71045; 80053; 80307; 82550; 82553; 84484; 85025; 93005; 94640; 96374; 99291; J2930; J7040

== ENCOUNTER 2018-11-24 07:58 | Inpatient (IN) | payer MEDICAID ==
[2018-11-24] VITALS (13 sets, daily range): BP systolic 93–145; BP diastolic 51–86
[~2018-11-24] VITALS: Ht 188 cm; Wt 73.0 kg
[~2018-11-24 07:58] MED LIST changes: +GLUCOPHAGE1000 MG ORAL; +PROCARDIA10 MG ORAL; +TENORMIN100 MG ORAL; +UNOBMED
[2018-11-24] MEDS ORDERED: Albuterol ud Inhalation ONE (08:06)
[2018-11-24] MEDS ORDERED: Ipratropium 0.02% Inh Soln 2.5ml UD ONE (08:06)
[2018-11-24] MEDS ORDERED: Albuterol ud Inhalation HHN ONE (08:15)
[2018-11-24] MEDS ORDERED: Solu-MEDROL 125mg Inj IVP ONE (08:15)
[2018-11-24] MEDS ORDERED: Ipratropium 0.02% Inh Soln 2.5ml UD HHN ONE (08:15)
--- NOTE | 2018-11-24 08:15 | Emergency Room Report ---
History of Present Illness General Chief Complaint: Dyspnea/Respdistress Source: Patient, EMS Present Illness HPI Patient has a history of COPD. Patient uses a steroid inhaler daily. Patient states that he lost his inhaler. He has been feeling short of breath for the last day or 2. Patient contacted EMS and was prior further evaluation. On arrival patient appears severely short of breath. EMS had given patient 2 doses of albuterol in route. Patient denies any fever. Denies any nausea vomiting diarrhea chills. Does complain some chest discomfort because of shortness of breath. Patient states that he also has a history of DVT with left lower extremity pain. He is currently on warfarin. He states that he is compliant with medications. No other complaints are noted. Symptoms noted to be highly severe to critical. No other modifying factors. No other associated signs and symptoms. No other complaints were noted. Allergies: Coded Allergies: PENICILLINS (Verified Allergy, Unknown, 11/24/18) Patient History Past Medical History: DM, HTN, asthma, COPD Past Surgical History: none Pertinent Family History: none Social History: Reports: smoking - Previous history; Denies: drug use Reviewed Nursing Documentation: PMH: Agreed; PSxH: Agreed Nursing Documentation-PMH Past Medical History: No History, Except For Hx Cardiac Problems: No - hyperthyroidism, DVT, CVA Hx Hypertension: Yes Hx Asthma: Yes Hx COPD: Yes Hx Diabetes: Yes Hx Gastrointestinal Problems: No - ABD surgery on 2013 Review of Systems All Other Systems: negative except mentioned in HPI Physical Exam Vital Signs Date Time Temp Pulse Resp B/P (MAP) Pulse Ox O2 Delivery O2 Flow Rate FiO2 11/24/18 07:53 97.0 66 18 134/93 (107) 100 Room Air Sp02 EP Interpretation: reviewed, normal General Appearance: alert, severe distress Head: normocephalic, atraumatic Eyes: bilateral eye normal inspection ENT: normal ENT inspection, hearing grossly normal, normal voice Neck: normal inspection, full range of motion, supple, no bony tend Respiratory: respiratory distress, decreased breath sounds, accessory muscle use, wheezing Cardiovascular #1: no edema, tachycardia Gastrointestinal: normal inspection, normal bowel sounds, non tender, soft, no guarding, no hernia Genitourinary: no CVA tenderness Musculoskeletal: normal inspection, back normal, normal range of motion Neurologic: normal inspection, alert, responsive Psychiatric: anxious Skin: no rash, normal color Procedures Critical Care Time Critical Care Time Patient had a critical medical condition which untreated could potentially result in life or limb threatening injury. Total critical care time excluding procedures was approximately 45 minutes. Medical Decision Making Diagnostic Impression: Primary Impression: Respiratory failure, acute Additional Impressions: COPD exacerbation Respiratory distress Pulmonary embolism ER Course Patient presents emergency department today complaining of severe shortness of breath. Differential diagnoses include acute pneumonia, CHF, acute coronary syndrome, pneumothorax, asthma, COPD flare, just to name a few. Given severity patient presentation I was considering intubating this patient. However patient was given albuterol Atrovent Solu-Medrol and magnesium. Patient was placed on BiPAP because he still did not improve. While he was on BiPAP he appeared to be more comfortable and we can hold off intubating the patient at this time. However patient appears to be unstable for transfer at this time. I am concerned about patient's airway in the ambulance potentially could deteriorate. I felt the patient require admission to the stepdown unit here at [facility]. I discussed this case with patient's insurance company physician Dr. Mujica. I informed him that I feel the patient was unstable for transfer. Patient exhibited severe respiratory distress and now is fairly somnolent. His airway could become an issue during the transport. Therefore I felt the patient require admission to the hospital. Later on I was informed by the insurance company that they refused to improve the admission. At which time I spoke with the counter caser informed her that it is my professional l and clinical opinion that the patient is at risk for respiratory failure and cannot risk a transport. As patient can potentially deteriorate during the transport. She states that she will review the case with her director. In the meantime I have informed her I must take care of the patient the best I can even if the insurance company refuses to allow me to do what is medically necessary I will still continue to treat the patient as best as I can. Therefore we will continue to treat the patient with respiratory management and admit the patient for further management at this time. Because of patient's respiratory distress CT scan was also performed. CT scan shows evidence of submassive pulmonary embolism. This further supports the fact the patient is unstable for transfer and will require admission here for further evaluation. We will start the patient on heparin bolus and heparin drip. Case was discussed in detail with Dr. Ti Crouch for admission. Patient will be admitted to the intensive care unit for further management. Labs Test 11/24/18 08:00 11/24/18 09:10 White Blood Count 12.9 K/UL (4.8-10.8) Red Blood Count 5.55 M/UL (4.70-6.10) Hemoglobin 13.8 G/DL (14.2-18.0) Hematocrit 44.5 % (42.0-52.0) Mean Corpuscular Volume 80 FL (80-99) Mean Corpuscular Hemoglobin 24.9 PG (27.0-31.0) Mean Corpuscular Hemoglobin Concent 31.1 G/DL (32.0-36.0) Red Cell Distribution Width 16.9 % (11.6-14.8) Platelet Count 181 K/UL (150-450) Mean Platelet Volume 6.7 FL (6.5-10.1) Neutrophils (%) (Auto) 75.6 % (45.0-75.0) Lymphocytes (%) (Auto) 16.5 % (20.0-45.0) Monocytes (%) (Auto) 5.7 % (1.0-10.0) Eosinophils (%) (Auto) 1.0 % (0.0-3.0) Basophils (%) (Auto) 1.2 % (0.0-2.0) Sodium Level 143 MMOL/L (136-145) Potassium Level 4.4 MMOL/L (3.5-5.1) Chloride Level 106 MMOL/L (98-107) Carbon Dioxide Level 30 MMOL/L (21-32) Anion Gap 7 mmol/L (5-15) Blood Urea Nitrogen 32 mg/dL (7-18) Creatinine 1.0 MG/DL (0.55-1.30) Estimat Glomerular Filtration Rate > 60 mL/min (>60) Glucose Level 74 MG/DL (74-106) Calcium Level 8.7 MG/DL (8.5-10.1) Total Bilirubin 0.3 MG/DL (0.2-1.0) Aspartate Amino Transf (AST/SGOT) 24 U/L (15-37) Alanine Aminotransferase (ALT/SGPT) 40 U/L (12-78) Alkaline Phosphatase 106 U/L (46-116) Total Creatine Kinase 116 U/L (26-308) Creatine Kinase MB 3.3 NG/ML (0.0-3.6) Creatine Kinase MB Relative Index 2.8 Troponin I 0.021 ng/mL (0.000-0.056) Pro-B-Type Natriuretic Peptide 921 pg/mL (0-125) Total Protein 6.7 G/DL (6.4-8.2) Albumin 3.3 G/DL (3.4-5.0) Globulin 3.4 g/dL Albumin/Globulin Ratio 1.0 (1.0-2.7) Lipase 68 U/L (73-393) Arterial Blood pH 7.385 (7.350-7.450) Arterial Blood Partial Pressure CO2 48.8 mmHg (35.0-45.0) Arterial Blood Partial Pressure O2 84.9 mmHg (75.0-100.0) Arterial Blood HCO3 28.5 mmol/L (22.0-26.0) Arterial Blood Oxygen Saturation 96.0 % (95-100) Arterial Blood Base Excess 2.7 (-2-2) Ney Test Positive EKG Diagnostic Results Rate: normal Rhythm: NSR ST Segments: no acute changes Rhythm Strip Diag. Results EP Interpretation: yes Rate: 61 Rhythm: NSR, no PVC's, no ectopy Chest X-Ray Diagnostic Results Chest X-Ray Diagnostic Results : Chest X-Ray Ordered: Yes EP Interpretation: No Impression: No acute disease CT/MRI/US Diagnostic Results CT/MRI/US Diagnostic Results : Imaging Test Ordered: CT chest: Positive pulmonary embolism. Last Vital Signs Date Time Temp Pulse Resp B/P (MAP) Pulse Ox O2 Delivery O2 Flow Rate FiO2 11/24/18 07:53 97.0 66 18 134/93 (107) 100 Room Air Status: improved Disposition: ADMITTED INPATIENT Condition: Critical John Murray MD Nov 24, 2018 08:15
--- NOTE | 2018-11-24 08:22 | NUR ---
ED Nurse Note: Patient in room 2 assessed on arrival vitals monitored. RT called EKG labs drawn.
[2018-11-24 08:25] LABS: BASOPHILS % (AUTO) 1.2 % (0.0-2.0); HEMATOCRIT 44.5 % (42.0-52.0); HEMOGLOBIN 13.8 G/DL (14.2-18.0); LYMPHOCYTES % (AUTO) 16.5 % (20.0-45.0); MEAN CORPUSCULAR VOLUME 80 FL (80-99); MONOCYTES % (AUTO) 5.7 % (1.0-10.0); NEUTROPHILS % (AUTO) 75.6 % (45.0-75.0); PLATELET COUNT 181 K/UL (150-450); RED BLOOD COUNT 5.55 M/UL (4.70-6.10); RED CELL DISTRIBUTION WIDTH 16.9 % (11.6-14.8); WHITE BLOOD COUNT 12.9 K/UL (4.8-10.8)
[2018-11-24 08:35] LABS: ANION GAP 7 mmol/L (5-15); BLOOD UREA NITROGEN 32 mg/dL (7-18); CALCIUM 8.7 MG/DL (8.5-10.1); CARBON DIOXIDE 30 MMOL/L (21-32); CHLORIDE 106 MMOL/L (98-107); POTASSIUM 4.4 MMOL/L (3.5-5.1); SODIUM 143 MMOL/L (136-145)
[2018-11-24 08:48] LABS: ALANINE AMINOTRANSFERASE 40 U/L (12-78); ALBUMIN 3.3 G/DL (3.4-5.0); ALKALINE PHOSPHATASE 106 U/L (46-116); ASPARTATE AMINO TRANSFERASE 24 U/L (15-37); BILIRUBIN,TOTAL 0.3 MG/DL (0.2-1.0); CKMB 3.3 NG/ML (0.0-3.6); CREATINE KINASE 116 U/L (26-308)
--- NOTE | 2018-11-24 09:56 | Diagnostic Imaging Report ---
Indication: Cough, shortness of breath Technique: One view of the chest Comparison: 04/17/2018 Findings: Lungs and pleural spaces are clear. Heart size is normal. No significant interim change Impression: No acute process
--- NOTE | 2018-11-24 10:59 | NUR ---
ED Nurse Note: Dr. Murray ordered to change FiO2 to room air. RT contacted.
--- NOTE | 2018-11-24 11:08 | NUR ---
ED Nurse Note: RT contacted oxygen reduced to 21%fio2. Continued on bipap.
--- NOTE | 2018-11-24 11:08 | NUR ---
ED Nurse Note: Swabs taken for MRSA/VRE/CRE. Patient monitored and on BIPAP attached by RT. ABG taken by RT. Result available. 30% o2. Complaining of chest pain central pain score 7 (trop negative). EKG, CXR. repeat coag taken. Patient report hisotry of DVT and also diabetes - doesnt sualy onitopr glucose states he takens eds but unable to ascertain the name.
--- NOTE | 2018-11-24 11:12 | NUR ---
ED Nurse Note: Pain score revealuated. Discussed with Patient aware urine sample required.
[2018-11-24] MEDS ORDERED: Acetaminophen 500mg (ES) tab ORAL ONE (11:15)
[2018-11-24] MEDS ORDERED: Isovue-370 150ml vial INJ PRN (11:45)
--- NOTE | 2018-11-24 12:52 | NUR ---
ED Nurse Note: Patient returned from CT and Dr brown for the patient to eat - sandwich provided and juice. Patient currently on room air and saturations within normal limits 100%
--- NOTE | 2018-11-24 13:10 | Diagnostic Imaging Report ---
ndication: Shortness of breath Technique: IV administration nonionic contrast. Spiral acquisitions obtained from the lung bases to the lung apices. Multiplanar and 3-D reconstructions were generated. Total dose length product 790.98 mGycm. CTDIvol(s) 21.91 mGy. Dose reduction achieved using automated exposure control Comparison: none Findings: Filling defects are seen within the right main pulmonary artery, extending into the main lower lobe branch, the orifice of the middle lobe branch, well into the right upper lobe branch and proximal segmental branches. Filling defects are also seen in the lingular branches on the left. These are consistent with acute pulmonary emboli. The main pulmonary artery is somewhat ectatic, measuring 3.5 cm in diameter, and the right and left pulmonary arteries each measure approximately 26th and 29 mm. There is equivocal evidence of right heart strain, with caliber of the right ventricle slightly wider than the left and equivocal slight bowing of the atrial septum. No evidence of thoracic aortic aneurysm or dissection. Classic branching anatomy and normal caliber of the great neck vessels. The lungs demonstrate diffuse hyperinflation. A few small bullae are seen in the right lung apex. There is some linear scarring or atelectasis at the right lung base. Mosaic attenuation pattern likely reflects air-trapping. There is some linear scarring in the left lung apex. A more focal 9 mm diameter masslike opacity is seen in the left upper lobe, image 29 of series 8. This is immediately adjacent to bronchiectatic bronchus. No infiltrates. No effusions. No definite congestion. The heart is upper limits of normal in size. No pericardial effusion. No mediastinal or hilar mass or adenopathy. The included thyroid is unremarkable. No axillary or chest wall mass or adenopathy demonstrated. The included upper abdominal anatomy demonstrates a subcentimeter low-attenuation lesion within segment 8 of the liver. This is too small to characterize. Another is seen within segment 7 Impression: Positive for bilateral right greater than left pulmonary emboli. Ectasia of the renal arteries and positive RV/LV ratio raises concern for submassive pulmonary embolus. However, the pulmonary artery ectasia could also indicate pulmonary hypertension related to COPD COPD changes Right basilar and left apical scarring 9 mm masslike opacity in the left upper lobe. Adjacency to bronchiectatic bronchus suggests this is most likely postinflammatory change, but the possibility of a mass lesion should also be considered. PET/CT imaging or 3 month follow-up conventional CT is recommended Subcentimeter low-attenuation liver lesions, too small to characterize, most likely benign simple cysts or bile hamartomas The CT scanner at [facility] is accredited by the [employer] and the scans are performed using protocols designed to limit radiation exposure to as low as reasonably achievable to attain images of sufficient resolution adequate for diagnostic evaluation.
[2018-11-24] MEDS ORDERED: Heparin Sod 1000 units/ml 10ml INJ ONE (13:15)
--- NOTE | 2018-11-24 13:25 | NUR ---
ED Nurse Note: Patient breathing room air. RT present discussed patient with RT. BIPAP discontinued at 12.30 now breathing roomm air sats 90% known COPD. Patient to conue on room air. Currentl;y sleeping. Patient has a positive PE screen will require ICU admission.
[2018-11-24] MEDS ORDERED: Heparin 5000 units/ml inj IV ONE (13:30)
[2018-11-24] MEDS ORDERED: Heparin 25,000u/D5W 500ml 500 ML IV SCH ×4 (13:30→21:30)
[2018-11-24 14:05] LABS: HEMATOCRIT 44.7 % (42.0-52.0); HEMOGLOBIN 13.9 G/DL (14.2-18.0); MEAN CORPUSCULAR VOLUME 80 FL (80-99); PLATELET COUNT 214 K/UL (150-450); RED BLOOD COUNT 5.56 M/UL (4.70-6.10); RED CELL DISTRIBUTION WIDTH 17.1 % (11.6-14.8); WHITE BLOOD COUNT 10.4 K/UL (4.8-10.8)
--- NOTE | 2018-11-24 14:15 | NUR ---
ED Nurse Note: Patient denies any major surgeries or bleeding. Heparin bolus given by RN and infusin commenced as prescribed by LUIZA Parsons.
--- NOTE | 2018-11-24 15:15 | NUR ---
ER DISCHARGE NOTE: Patient transferred to ICU by LUIZA mills. Handover given by LUIZA Parsons.
--- NOTE | 2018-11-24 15:30 | NUR ---
NURSE NOTES: Received the patient from LUIZA Ding. Patient is awake, alert and orientedx4. SB-SR mid 50s-60s noted on the residential monitor. O2 sat 99% on room air. Patient used urinal. Right hand 22G and left upper arm 18G intact, running heparin drip at 18unit/kg/hr. No active bleeding noted. Patient continue to have mild pain in mid chest. Received TO orders from Dr. Wagner. Orders carried out. All belongings checked. Bed in lowest position, locked, side rails upx2. Call light within reach. Will continue to monitor.
--- NOTE | 2018-11-24 15:37 | Pulmonolgy Critical Care Note ---
Critical Care - Asmt/Plan Assessment/Plan: Pulmonary Critical Care Consulttaion HPI Patient is a 57 year old man with a past medical history of COPD, recently diagnosed left lower extremity DVT - not complaint on Coumadin. Patient uses a steroid inhaler daily, he recently lost his inhaler. He has been feeling short of breath for the last 1-2 days Patient denies cough, hemoptysis, fever. Denies any nausea vomiting diarrhea chills. Does complain some chest discomfort.. No other complaints are noted. Symptoms noted to be highly severe to critical. No other modifying factors. No other associated signs and symptoms. No other complaints were noted. Noted to have a Pulmonary Embolism on CTA in the ED, no focal infiltrates on CXR. Allergies: PENICILLINS Past Medical History: DM, HTN, asthma, COPD, Hyperthyroidism, DVT, CVA, Abdominal surgery 2013 All Other Systems: negative except mentioned in HPI Physical Exam Vital Signs Noted Date Time Temp Pulse Resp B/P (MAP) Pulse Ox O2 Delivery O2 Flow Rate FiO2 11/24/18 07:53 97.0 66 18 134/93 (107) 100 Room Air General Appearance: alert, mild distress Head: normocephalic, atraumatic Eyes: bilateral eye normal inspection ENT: normal ENT inspection, hearing grossly normal, normal voice Neck: normal inspection, full range of motion, supple, no bony tend Respiratory: respiratory distress, decreased breath sounds, occasional wheezing Cardiovascular: no edema, tachycardia, HS1, HS2 normal Gastrointestinal: normal inspection, normal bowel sounds, non tender, soft, no guarding, no hernia Musculoskeletal: normal inspection, back normal, normal range of motion Neurologic: normal inspection, alert, responsive Skin: no rash, no edema Impression: Bilateral Pulmonary Embolism Hypoxic Respiratory failure, acute Chronic Obstructive Pulmonary Disease exacerbation Left Upper Lobe 9mm possibly inflammatory Pulmonary Nodule Diabetes Hypertension history Hyperthyroidism history Plan: Heparin gtt HHN Solumedrol O2 PRN Echocardiogram Monitor labs PPX Labs Test 11/24/18 08:00 11/24/18 09:10 White Blood Count 12.9 K/UL (4.8-10.8) Red Blood Count 5.55 M/UL (4.70-6.10) Hemoglobin 13.8 G/DL (14.2-18.0) Hematocrit 44.5 % (42.0-52.0) Mean Corpuscular Volume 80 FL (80-99) Mean Corpuscular Hemoglobin 24.9 PG (27.0-31.0) Mean Corpuscular Hemoglobin Concent 31.1 G/DL (32.0-36.0) Red Cell Distribution Width 16.9 % (11.6-14.8) Platelet Count 181 K/UL (150-450) Mean Platelet Volume 6.7 FL (6.5-10.1) Neutrophils (%) (Auto) 75.6 % (45.0-75.0) Lymphocytes (%) (Auto) 16.5 % (20.0-45.0) Monocytes (%) (Auto) 5.7 % (1.0-10.0) Eosinophils (%) (Auto) 1.0 % (0.0-3.0) Basophils (%) (Auto) 1.2 % (0.0-2.0) Sodium Level 143 MMOL/L (136-145) Potassium Level 4.4 MMOL/L (3.5-5.1) Chloride Level 106 MMOL/L (98-107) Carbon Dioxide Level 30 MMOL/L (21-32) Anion Gap 7 mmol/L (5-15) Blood Urea Nitrogen 32 mg/dL (7-18) Creatinine 1.0 MG/DL (0.55-1.30) Estimat Glomerular Filtration Rate > 60 mL/min (>60) Glucose Level 74 MG/DL (74-106) Calcium Level 8.7 MG/DL (8.5-10.1) Total Bilirubin 0.3 MG/DL (0.2-1.0) Aspartate Amino Transf (AST/SGOT) 24 U/L (15-37) Alanine Aminotransferase (ALT/SGPT) 40 U/L (12-78) Alkaline Phosphatase 106 U/L (46-116) Total Creatine Kinase 116 U/L (26-308) Creatine Kinase MB 3.3 NG/ML (0.0-3.6) Creatine Kinase MB Relative Index 2.8 Troponin I 0.021 ng/mL (0.000-0.056) Pro-B-Type Natriuretic Peptide 921 pg/mL (0-125) Total Protein 6.7 G/DL (6.4-8.2) Albumin 3.3 G/DL (3.4-5.0) Globulin 3.4 g/dL Albumin/Globulin Ratio 1.0 (1.0-2.7) Lipase 68 U/L (73-393) Arterial Blood pH 7.385 (7.350-7.450) Arterial Blood Partial Pressure CO2 48.8 mmHg (35.0-45.0) Arterial Blood Partial Pressure O2 84.9 mmHg (75.0-100.0) Arterial Blood HCO3 28.5 mmol/L (22.0-26.0) Arterial Blood Oxygen Saturation 96.0 % (95-100) Arterial Blood Base Excess 2.7 (-2-2) Ney Test Positive EKG: Rate: normal Rhythm: NSR ST Segments: no acute changes Chest XR: No acute disease CT Chest : Positive pulmonary embolism bilaterally, R>L, possible 9mm inflammatory nodule TRAVIS - will need 3 month follow up. Critical Care - Objective Last 24 Hour Vital Signs Date Time Temp Pulse Resp B/P (MAP) Pulse Ox O2 Delivery O2 Flow Rate FiO2 11/24/18 14:19 82 18 Room Air 11/24/18 14:17 79 18 96/63 97 Room Air 11/24/18 12:54 97.8 63 13 113/73 100 Room Air 11/24/18 11:09 21 11/24/18 11:05 62 18 113/74 100 Bi-pap 21 11/24/18 11:05 60 18 99 Facial 21 11/24/18 09:10 66 16 123/78 100 Bi-pap 30 11/24/18 08:30 71 23 100 Facial 30 11/24/18 08:30 71 24 100 Bi-Pap 30 11/24/18 08:30 30 11/24/18 08:14 62 18 100 Room Air 21 66 20 100 11/24/18 08:14 66 20 100 Room Air 21 11/24/18 08:00 97.3 62 24 145/86 100 6.0 11/24/18 08:00 62 24 6.0 11/24/18 07:53 97.0 66 18 134/93 (107) 100 Room Air Critical Care - Subjective ROS Limited/Unobtainable: No FI02: 21 Vent Support Breath Rate: 12 Vent Support Mode: BiLevel Sputum Amount: None Suman Wagner MD Nov 24, 2018 15:37
[2018-11-24] MEDS: NovoLOG Insulin Flexpen SUBQ SCH ×2 (16:57→21:11)
--- NOTE | 2018-11-24 17:08 | NUR ---
NURSE NOTES: Patient asleep, easily arousable. No s/sx of pain at this time. Breathing even and unlabored. VSS, O2 sat 96% on room air. Heparin drip running at 18unit/kg/hr. No active bleeding noted.
--- NOTE | 2018-11-24 19:09 | NUR ---
HAND-OFF: Report given to LUIZA Martinez. patient asleep in bed comfortably.
--- NOTE | 2018-11-24 19:28 | NUR ---
NURSE NOTES: Recvd.asleep easily arousable Resp.unlabored P.Ox-96-97% on RA.Lungs Diminished BS at Bases.See V/S.Scope SR.denies CP nor discomfort.CTA Lungs Pos.for Pulmo.Emboli.Heparin drip in progress inf.at 18units/kg/hr.Observe for S/Sx of any unusual bldng.SOB,CP.Kept comfortable in bed.
[2018-11-24] MEDS: Docusate 100mg cap ORAL SCH (21:05)
[2018-11-24] MEDS: Solu-MEDROL 40mg Inj IVP SCH (21:05)
--- NOTE | 2018-11-24 21:14 | NUR ---
NURSE NOTES: HS care rendered.Pos.self to comfort.Denies Resp.distress.Sat.97-98% on RA.Due meds recvd.FSBS-137,covered.HS Snack recvd.PTT-130.Hepa.drip held x30' to resumed at 15 units/kg/hr.PTT 6hrs after new rate.No visible sign of unusual bldng.
[2018-11-24] MEDS: Albuterol/Ipratropium 3ml neb HHN SCH (23:00)
[2018-11-25] VITALS (20 sets, daily range): BP systolic 91–134; BP diastolic 53–87
--- NOTE | 2018-11-25 00:10 | NUR ---
NURSE NOTES: Sound asleep with noticeable pd.of apnea,desat. at times.Placed on O2 2L/NC.Sat. improved.See V/S.Scope shows SR-SB.Cont.on Heparin drip at 15 units/kg/hr.
--- NOTE | 2018-11-25 01:45 | History and Physical Report ---
DATE OF ADMISSION: 11/24/2018 HISTORY OF PRESENT ILLNESS: I saw the patient while the patient was in the emergency room. I saw the patient before patient was transferred to ICU. I saw the patient in the emergency room. The patient basically is admitted for COPD exacerbation, respiratory insufficiency, asthma, DVT, and found to have pulmonary embolism, admitted for COPD exacerbation, has been complaining of shortness of breath and nonproductive cough ongoing for one day. The patient is also homeless, has DVT on warfarin. The patient's INR is subtherapeutic, so we are not sure if he is taking the warfarin for his DVT. The patient has been complaining of calf pain. The patient also smokes, has history of COPD, and complains of wheezing for one day, shortness of breath, cough. PAST MEDICAL HISTORY: Significant for COPD, asthma, history of DVT, hypertension. PAST SURGICAL HISTORY: None. SOCIAL HISTORY: The patient smokes, has history of drug abuse. No history of alcohol abuse. He is homeless. ALLERGIES: To penicillin. MEDICATIONS: Albuterol, metformin, 01:16 nifedipine. FAMILY HISTORY: Noncontributory. REVIEW OF SYSTEMS: HEENT: Denies headaches. RESPIRATORY: Reports shortness of breath and nonproductive cough ongoing for one day. CARDIOVASCULAR: Denies chest pain. GASTROINTESTINAL: Denies nausea, vomiting, or diarrhea. EXTREMITIES: He has chronic pain. CENTRAL NERVOUS SYSTEM: Denies any change in vision or speech pattern. PHYSICAL EXAMINATION: VITAL SIGNS: Temperature 97.5, pulse 70, blood pressure 105/70. HEENT: PERRLA. NECK: Supple. No lymphadenopathy. CHEST: Bibasilar wheezing. CARDIOVASCULAR: Regular rate and rhythm. No murmurs or extra sounds. ABDOMEN: Soft, nontender, nondistended. No organomegaly. EXTREMITIES: No edema. Moves all four extremities. CENTRAL NERVOUS SYSTEM: Sensory intact to light touch. Reflexes equal on both sides. LABORATORY DATA: WBC of 12.9, hemoglobin 13.8, platelet 181. Sodium 143, potassium 4.4, BUN of 33, creatinine 1, glucose of 74. Troponin 0.021. ASSESSMENT/PLAN: Respiratory insufficiency, pulmonary embolism, DVT, COPD exacerbation. The patient is in ICU. He has been consulted by Dr. Mosqueda, Dr. Wagner, Dr. Ramos for the management of the above-mentioned diagnoses. Ti Goss M.D. DR: German JOB#: [id number] CC:
[2018-11-25] MEDS: Albuterol/Ipratropium 3ml neb HHN SCH ×6 (03:00→23:00)
--- NOTE | 2018-11-25 03:05 | NUR ---
HAND-OFF: Report given to LUIZA LUCIANO.
--- NOTE | 2018-11-25 03:08 | NUR ---
NURSE NOTES: Received report from LUIZA Kaur. Patient asleep. Responsive to verbal and tactile stimuli. SB 50s on the monitor. O2 Sat 96% with O2 2L/min via NC. No acute distress/SOB noted. Heparin drip running @ 15unit/hr=22.045ml/hr via left upper arm 18G. Next PTT will be drawn @0330. Will continue to plan of care.
[2018-11-25 04:25] LABS: HEMATOCRIT 37.6 % (42.0-52.0); MEAN CORPUSCULAR VOLUME 80 FL (80-99); PLATELET COUNT 193 K/UL (150-450); RED BLOOD COUNT 4.73 M/UL (4.70-6.10); RED CELL DISTRIBUTION WIDTH 16.8 % (11.6-14.8); WHITE BLOOD COUNT 11.5 K/UL (4.8-10.8)
[2018-11-25 04:36] LABS: ANION GAP 5 mmol/L (5-15); CARBON DIOXIDE 30 MMOL/L (21-32); CHLORIDE 108 MMOL/L (98-107); CREATININE 0.9 MG/DL (0.55-1.30); POTASSIUM 4.7 MMOL/L (3.5-5.1); SODIUM 143 MMOL/L (136-145)
[2018-11-25] MEDS ORDERED: Heparin 5000 units/ml inj IV ONE (05:00)
[2018-11-25] MEDS ORDERED: Heparin 25,000u/D5W 500ml 500 ML IV SCH ×2 (05:00→08:30)
--- NOTE | 2018-11-25 05:23 | NUR ---
NURSE NOTES: heparin bolus 3000 units given and heparin drip rate changed from 15 units to 17 units/hr. Verified with another RN. Will continue plan of care.
[2018-11-25 05:31] LABS: BLOOD UREA NITROGEN 26 mg/dL (7-18)
[2018-11-25 05:35] LABS: CALCIUM 8.1 MG/DL (8.5-10.1)
[2018-11-25] MEDS: NovoLOG Insulin Flexpen SUBQ SCH ×4 (05:59→21:00)
--- NOTE | 2018-11-25 06:10 | NUR ---
NURSE NOTES: Patient refused insulin x3. Explained risks and benefits. Patient verbalized understanding.
--- NOTE | 2018-11-25 07:19 | NUR ---
HAND-OFF: Report given to LUIZA Fink. Endorsed plan of care.
--- NOTE | 2018-11-25 07:20 | NUR ---
NURSE NOTES: Received change of shift report from Reji JARRETT. Pt is asleep, awakens to name/voice, and is oriented x4. Pt is on 2L of oxygen via nasal cannula with 100% O2sat and bilateral diminished lung sounds. Pt has nonproductive cough. emergency specialist displays SB to SR with heart rate in the upper 50's-low 60's. Pt denies chest pain or any other discomfort at this time. Weak peripheral pulses are noted on palpation. Peripheral IV access is present on right hand #22G, saline locked/patent/intact, and left UA #18G infusing Heparin Drip with current dose of 17units/kg/hour per order/pharmacy. Abdomen is soft/nontender to touch with hypoactive bowel sounds. Pt uses urinal and bedpan for urination/BM. Skin is intact. Bed is locked and in lowest position with three side rails up and call light within reach. Will continue to monitor pt and follow plan of care per MD orders and protocol.
--- NOTE | 2018-11-25 09:24 | NUR ---
CASE MANAGEMENT:REVIEW 57 YR OLD MALE BIBA FROM HOME CC; SOB. CHEST PAIN SI: ACUTE RESPIRATORY FAILURE. COPD BILATERAL PULMONARY EMBOLISM 97.0 66 18 134/93 100% ON RA WBC+12.9 BUN+32 PCO2+48 HCO3+28.5 IS:ALBUTEROL HHN POLICE GUARD DUONEB HHN IV SOLUMEDROL PLACED ON BIPAP CXR : TO ICU IS: HEPARIN GTT IV MAG SULFATE INTERQUAL CRITERIA MET
--- NOTE | 2018-11-25 09:30 | NUR ---
*-* NO INSURANCE INFORMATION IN THE BAR UNABLE TO SEND CLINICALS OR REVIEWS *-*
[2018-11-25] MEDS: Solu-MEDROL 40mg Inj IVP SCH ×2 (09:32→21:37)
[2018-11-25] MEDS: Docusate 100mg cap ORAL SCH ×2 (09:32→21:00)
[2018-11-25] MEDS ORDERED: NS 275ml ONE (09:38)
--- NOTE | 2018-11-25 10:00 | NUR ---
NURSE NOTES: AM meds were administered. Pt consumed 100% of breakfast meal. VS stable. Heparin drip continues at 17units/kg/hr. No s/s of bleeding noted. Pt denies chest pain or any other discomfort at this time.
--- NOTE | 2018-11-25 10:12 | NUR ---
Social Service Note SW met with patient to assess for homelessness. Patient is alert, oriented and verbally responsive. Patient states he currently only has been homeless for 2 weeks but has had multiple periods of homelessness. Patient states he was residing in a transitional living facility but was unhappy because he had to share a room with 3 other men. Patient states he receives SSI and is only willing to pay $500 a month for housing. SW explored the reality of housing, for $500 a month, 3 meals a day and a private room with patient. Patient states he is not willing to spend any additional money because he has things to do. Patient inquired about being placed in a Recuperative care center for a month because another hospital it that for him in the past. SW explained that there is a criteria for Recuperative Care placement and that placement in that setting is not in lieu of an individual not wanting to use there own resources for housing. Homeless coordinator can assist patient in completing an application for [facility]. SW explained this is not an immediate solution but a possible manager long term care plan. Patient also declined board and care. [facility] placement also discussed. The address listed on face sheet is his mother's home [address] [place] [phone]. Patient states this is a mailing address only and he is unable to reside there. Patient's PCP is Dr. Iggy Sotelo [phone]. [address] [facility] [address]. Patient denies mental health and substance abuse disorders. Placement upon discharge is not determined at this time. Will continue to monitor and assist as needed.
--- NOTE | 2018-11-25 10:18 | NUR ---
NURSE NOTES: Pt was seen by primary MD, Dr Goss. Per MD, pt has to be cleared by [facility] prior to being transferred out to [facility].
--- NOTE | 2018-11-25 11:00 | NUR ---
NURSE NOTES: Pharmacist contacted the nurse's station and informed to stop the Heparin drip per MD order. Pt is to be administered Eliquis instead of Heparin drip per MD/pharmacist. Pt is resting in no apparent distress with stable VS.
--- NOTE | 2018-11-25 11:11 | NUR ---
NURSE NOTES: Spoke with [facility] pharmacist, and was informed time PTT for 1130 will not be necessary since pt is now off of Heparin drip and order for lab/PTT will be canceled.
--- NOTE | 2018-11-25 12:30 | NUR ---
NURSE NOTES: Pt is having lunch while sitting up on bed and watching TV. Denies chest pain or any other discomfort at this time. VS stable. Pt remains afebrile. Blood glucose prior to lunch consumption was 106 within range and Insulin dose was held per sliding scale order. Pt voided x1 300ml output, urinal at bedside.
[2018-11-25] MEDS: Eliquis 5mg tablet ORAL SCH ×2 (12:36→17:34)
--- NOTE | 2018-11-25 13:56 | Pulmonolgy Critical Care Note ---
Critical Care - Asmt/Plan Assessment/Plan: Pulmonary Critical Care Progress Note HPI Patient is a 57 year old man with a past medical history of COPD, recently diagnosed left lower extremity DVT - not complaint on Coumadin. Patient uses a steroid inhaler daily, he recently lost his inhaler. He has been feeling short of breath for the last 1-2 days Patient denies cough, hemoptysis, fever. Denies any nausea vomiting diarrhea chills. Does complain some chest discomfort.. No other complaints are noted. Symptoms noted to be highly severe to critical. No other modifying factors. No other associated signs and symptoms. No other complaints were noted. Noted to have a Pulmonary Embolism on CTA in the ED, no focal infiltrates on CXR. Allergies: PENICILLINS Past Medical History: DM, HTN, asthma, COPD, Hyperthyroidism, DVT, CVA, Abdominal surgery 2013 All Other Systems: negative except mentioned in HPI LESS sob Physical Exam Vital Signs Noted General Appearance: alert, mild distress Head: normocephalic, atraumatic Eyes: bilateral eye normal inspection ENT: normal ENT inspection, hearing grossly normal, normal voice Neck: normal inspection, full range of motion, supple, no bony tend Respiratory: respiratory distress, decreased breath sounds, occasional wheezing Cardiovascular: no edema, tachycardia, HS1, HS2 normal Gastrointestinal: normal inspection, normal bowel sounds, non tender, soft, no guarding, no hernia Musculoskeletal: normal inspection, back normal, normal range of motion Neurologic: normal inspection, alert, responsive Skin: no rash, no edema Impression: Bilateral Pulmonary Embolism Hypoxic Respiratory failure, acute Chronic Obstructive Pulmonary Disease exacerbation Left Upper Lobe 9mm possibly inflammatory Pulmonary Nodule Diabetes Hypertension history Hyperthyroidism history Plan: Eliiquis 5MG bid HHN Solumedrol - WEAL TOLERATED O2 PRN Echocardiogram Monitor labs PPX ISS PRN Labs Test 11/24/18 08:00 11/24/18 09:10 White Blood Count 12.9 K/UL (4.8-10.8) Red Blood Count 5.55 M/UL (4.70-6.10) Hemoglobin 13.8 G/DL (14.2-18.0) Hematocrit 44.5 % (42.0-52.0) Mean Corpuscular Volume 80 FL (80-99) Mean Corpuscular Hemoglobin 24.9 PG (27.0-31.0) Mean Corpuscular Hemoglobin Concent 31.1 G/DL (32.0-36.0) Red Cell Distribution Width 16.9 % (11.6-14.8) Platelet Count 181 K/UL (150-450) Mean Platelet Volume 6.7 FL (6.5-10.1) Neutrophils (%) (Auto) 75.6 % (45.0-75.0) Lymphocytes (%) (Auto) 16.5 % (20.0-45.0) Monocytes (%) (Auto) 5.7 % (1.0-10.0) Eosinophils (%) (Auto) 1.0 % (0.0-3.0) Basophils (%) (Auto) 1.2 % (0.0-2.0) Sodium Level 143 MMOL/L (136-145) Potassium Level 4.4 MMOL/L (3.5-5.1) Chloride Level 106 MMOL/L (98-107) Carbon Dioxide Level 30 MMOL/L (21-32) Anion Gap 7 mmol/L (5-15) Blood Urea Nitrogen 32 mg/dL (7-18) Creatinine 1.0 MG/DL (0.55-1.30) Estimat Glomerular Filtration Rate > 60 mL/min (>60) Glucose Level 74 MG/DL (74-106) Calcium Level 8.7 MG/DL (8.5-10.1) Total Bilirubin 0.3 MG/DL (0.2-1.0) Aspartate Amino Transf (AST/SGOT) 24 U/L (15-37) Alanine Aminotransferase (ALT/SGPT) 40 U/L (12-78) Alkaline Phosphatase 106 U/L (46-116) Total Creatine Kinase 116 U/L (26-308) Creatine Kinase MB 3.3 NG/ML (0.0-3.6) Creatine Kinase MB Relative Index 2.8 Troponin I 0.021 ng/mL (0.000-0.056) Pro-B-Type Natriuretic Peptide 921 pg/mL (0-125) Total Protein 6.7 G/DL (6.4-8.2) Albumin 3.3 G/DL (3.4-5.0) Globulin 3.4 g/dL Albumin/Globulin Ratio 1.0 (1.0-2.7) Lipase 68 U/L (73-393) Arterial Blood pH 7.385 (7.350-7.450) Arterial Blood Partial Pressure CO2 48.8 mmHg (35.0-45.0) Arterial Blood Partial Pressure O2 84.9 mmHg (75.0-100.0) Arterial Blood HCO3 28.5 mmol/L (22.0-26.0) Arterial Blood Oxygen Saturation 96.0 % (95-100) Arterial Blood Base Excess 2.7 (-2-2) Ney Test Positive EKG: Rate: normal Rhythm: NSR ST Segments: no acute changes Chest XR: No acute disease CT Chest : Positive pulmonary embolism bilaterally, R>L, possible 9mm inflammatory nodule TRAVIS - will need 3 month follow up. Critical Care - Objective Last 24 Hour Vital Signs Date Time Temp Pulse Resp B/P (MAP) Pulse Ox O2 Delivery O2 Flow Rate FiO2 11/25/18 13:00 79 19 103/73 (83) 90 11/25/18 12:00 98.0 56 16 111/79 (90) 100 11/25/18 12:00 54 11/25/18 12:00 Nasal Cannula 2.0 11/25/18 11:00 64 20 100 Nasal Cannula 2.0 28 11/25/18 11:00 52 17 120/80 (93) 100 11/25/18 10:00 63 19 111/66 (81) 100 11/25/18 09:00 64 32 96/53 (67) 99 11/25/18 08:00 63 11/25/18 08:00 Nasal Cannula 2.0 11/25/18 08:00 97.5 71 14 113/70 (84) 99 11/25/18 07:40 64 18 100 Nasal Cannula 2.0 28 68 20 100 11/25/18 07:40 80 18 98 Room Air 21 11/25/18 07:40 97 Nasal Cannula 2.0 28 11/25/18 07:00 51 15 119/77 (91) 98 11/25/18 06:00 55 16 110/77 (88) 100 11/25/18 05:00 55 15 112/81 (91) 98 11/25/18 04:00 98.0 53 20 93/55 (68) 96 11/25/18 04:00 Nasal Cannula 2.0 11/25/18 04:00 51 11/25/18 03:00 50 16 100/62 (75) 98 11/25/18 03:00 65 18 98 Nasal Cannula 2.0 28 11/25/18 02:00 56 17 91/57 (68) 98 11/25/18 01:00 56 18 108/68 (81) 100 11/25/18 00:15 97 Nasal Cannula 2.0 28 11/25/18 00:00 74 11/25/18 00:00 Room Air 11/25/18 00:00 97.2 61 17 101/71 (81) 99 11/24/18 23:00 74 20 93/61 (72) 98 11/24/18 23:00 2.0 28 11/24/18 22:00 72 21 95/53 (67) 95 11/24/18 21:00 62 17 105/68 (80) 97 11/24/18 20:00 Room Air 11/24/18 20:00 97.8 69 19 105/68 (80) 96 11/24/18 20:00 87 18 97 Room Air 21 11/24/18 20:00 69 11/24/18 19:00 80 20 105/65 (78) 94 11/24/18 18:00 75 20 104/62 (76) 97 11/24/18 17:00 68 19 94/51 (65) 95 11/24/18 16:00 Room Air 11/24/18 16:00 97.5 70 18 105/70 (82) 100 11/24/18 16:00 63 11/24/18 15:57 Room Air 11/24/18 14:19 82 18 Room Air 11/24/18 14:17 79 18 96/63 97 Room Air Accucheck: 106 Critical Care - Subjective ROS Limited/Unobtainable: No FI02: 28 Vent Support Breath Rate: 12 Vent Support Mode: BiLevel Sputum Amount: None I&O: Intake and Output 11/24/18 11/25/18 19:00 07:00 Intake Total 734.854 ml 740.313 ml Output Total 800 ml 700 ml Balance -65.146 ml 40.313 ml Intake Oral 480 ml 500 ml IV Total 154.854 ml 240.313 ml Other 100 ml Output Urine Total 800 ml 700 ml # Voids 1 2 Suman Wagner MD Nov 25, 2018 13:56
--- NOTE | 2018-11-25 14:17 | NUR ---
NURSE NOTES: Pt is asleep with in no apparent distress, and with stable VS.
--- NOTE | 2018-11-25 16:01 | Consultation ---
History of Present Illness General Chief Complaint: Dyspnea/Respdistress Present Illness Allergies: Coded Allergies: PENICILLINS (Verified Allergy, Unknown, 11/24/18) Medication History Scheduled Albuterol Sulfate (Ventolin Hfa), 2 PUFFS INH EVERY 6 HOURS, (Reported) Albuterol Sulfate* (Albuterol Sulfate Mdi*), 2 PUFF INH Q6H Albuterol Sulfate* (Albuterol Sulfate Mdi*), 2 PUFF INH Q6H Atenolol (Tenormin), 100 MG ORAL DAILY, (Reported) Metformin Hcl (Glucophage), 1,000 MG ORAL DAILY, (Reported) Methylprednisolone (Methylprednisolone*), 4 MG ORAL DIRECTED Methylprednisolone (Methylprednisolone*), 4 MG ORAL DIRECTED Nifedipine* (Procardia*), 10 MG ORAL EVERY 6 HOURS, (Reported) Miscellaneous Medications Prednisolone* (Prelone*), 20 MG ORAL, (Reported) Prednisone (Prednisone), 5 MG PO, (Reported) Unable to Obtain Medications (Unable To Obtain Meds), (Reported) Patient History Healthcare decision maker Resuscitation status Advanced Directive on File Physical Exam Last 24 Hour Vital Signs Date Time Temp Pulse Resp B/P (MAP) Pulse Ox O2 Delivery O2 Flow Rate FiO2 11/25/18 14:25 66 20 96 Nasal Cannula 2.0 28 11/25/18 14:00 79 20 109/77 (88) 93 11/25/18 13:00 79 19 103/73 (83) 90 11/25/18 12:00 98.0 56 16 111/79 (90) 100 11/25/18 12:00 54 11/25/18 12:00 Nasal Cannula 2.0 11/25/18 11:00 64 20 100 Nasal Cannula 2.0 28 11/25/18 11:00 52 17 120/80 (93) 100 11/25/18 10:00 63 19 111/66 (81) 100 11/25/18 09:00 64 32 96/53 (67) 99 11/25/18 08:00 63 11/25/18 08:00 Nasal Cannula 2.0 11/25/18 08:00 97.5 71 14 113/70 (84) 99 11/25/18 07:40 64 18 100 Nasal Cannula 2.0 28 68 20 100 11/25/18 07:40 80 18 98 Room Air 21 11/25/18 07:40 97 Nasal Cannula 2.0 28 11/25/18 07:00 51 15 119/77 (91) 98 11/25/18 06:00 55 16 110/77 (88) 100 11/25/18 05:00 55 15 112/81 (91) 98 11/25/18 04:00 98.0 53 20 93/55 (68) 96 11/25/18 04:00 Nasal Cannula 2.0 11/25/18 04:00 51 11/25/18 03:00 50 16 100/62 (75) 98 11/25/18 03:00 65 18 98 Nasal Cannula 2.0 28 11/25/18 02:00 56 17 91/57 (68) 98 11/25/18 01:00 56 18 108/68 (81) 100 11/25/18 00:15 97 Nasal Cannula 2.0 28 11/25/18 00:00 74 11/25/18 00:00 Room Air 11/25/18 00:00 97.2 61 17 101/71 (81) 99 11/24/18 23:00 74 20 93/61 (72) 98 11/24/18 23:00 2.0 28 11/24/18 22:00 72 21 95/53 (67) 95 11/24/18 21:00 62 17 105/68 (80) 97 11/24/18 20:00 Room Air 11/24/18 20:00 97.8 69 19 105/68 (80) 96 11/24/18 20:00 87 18 97 Room Air 21 11/24/18 20:00 69 11/24/18 19:00 80 20 105/65 (78) 94 11/24/18 18:00 75 20 104/62 (76) 97 11/24/18 17:00 68 19 94/51 (65) 95 11/24/18 16:00 Room Air 11/24/18 16:00 97.5 70 18 105/70 (82) 100 11/24/18 16:00 63 11/24/18 15:57 Room Air Intake and Output 11/24/18 11/25/18 19:00 07:00 Intake Total 734.854 ml 740.313 ml Output Total 800 ml 700 ml Balance -65.146 ml 40.313 ml Intake Oral 480 ml 500 ml IV Total 154.854 ml 240.313 ml Other 100 ml Output Urine Total 800 ml 700 ml # Voids 1 2 Laboratory Tests Test 11/24/18 19:55 11/25/18 03:30 Activated Partial Thromboplast Time 130 SEC (23-33) H 63 SEC (23-33) H Troponin I 0.000 ng/mL (0.000-0.056) Pro-B-Type Natriuretic Peptide 342 pg/mL (0-125) H White Blood Count 11.5 K/UL (4.8-10.8) H Red Blood Count 4.73 M/UL (4.70-6.10) Hemoglobin 12.0 G/DL (14.2-18.0) L Hematocrit 37.6 % (42.0-52.0) L Mean Corpuscular Volume 80 FL (80-99) Mean Corpuscular Hemoglobin 25.4 PG (27.0-31.0) L Mean Corpuscular Hemoglobin Concent 31.9 G/DL (32.0-36.0) L Red Cell Distribution Width 16.8 % (11.6-14.8) H Platelet Count 193 K/UL (150-450) Mean Platelet Volume 7.4 FL (6.5-10.1) Neutrophils (%) (Auto) % (45.0-75.0) Lymphocytes (%) (Auto) % (20.0-45.0) Monocytes (%) (Auto) % (1.0-10.0) Eosinophils (%) (Auto) % (0.0-3.0) Basophils (%) (Auto) % (0.0-2.0) Prothrombin Time 11.1 SEC (9.30-11.50) Prothromb Time International Ratio 1.0 (0.9-1.1) Sodium Level 143 MMOL/L (136-145) Potassium Level 4.7 MMOL/L (3.5-5.1) Chloride Level 108 MMOL/L (98-107) H Carbon Dioxide Level 30 MMOL/L (21-32) Anion Gap 5 mmol/L (5-15) Blood Urea Nitrogen 26 mg/dL (7-18) H Creatinine 0.9 MG/DL (0.55-1.30) Estimat Glomerular Filtration Rate > 60 mL/min (>60) Glucose Level 130 MG/DL (74-106) H Calcium Level 8.1 MG/DL (8.5-10.1) L Height (Feet): 6 Height (Inches): 2.00 Weight (Pounds): 167 Medications Current Medications Medications (Trade) Dose Ordered Sig/Darya Route PRN Reason Start Time Stop Time Status Last Admin Dose Admin Acetaminophen (Tylenol) 650 mg Q6H PRN ORAL Fever(T>100.5F)/Pain 11/24/18 15:30 12/24/18 15:29 Albuterol/ Ipratropium (Albuterol/ Ipratropium) 3 ml Q4HRT HHN 11/24/18 16:00 11/29/18 15:59 11/25/18 14:26 Apixaban (Eliquis) 5 mg BID ORAL 11/25/18 11:00 12/25/18 10:59 11/25/18 12:36 Dextrose (Dextrose 50%) 25 ml Q30M PRN IV Hypoglycemia 11/24/18 16:00 12/24/18 15:59 Dextrose (Dextrose 50%) 50 ml Q30M PRN IV Hypoglycemia 11/24/18 16:00 12/24/18 15:59 Docusate Sodium (Colace) 100 mg EVERY 12 HOURS ORAL 11/24/18 21:00 12/24/18 20:59 11/25/18 09:32 Insulin Aspart (NovoLOG) BEFORE MEALS AND HS SUBQ 11/24/18 16:30 12/24/18 16:29 11/24/18 21:11 Iopamidol (Isovue-370 150ml) 150 ml NOW PRN INJ Radiology Procedure 11/24/18 11:45 11/26/18 11:31 Methylprednisolone Sodium Succinate (Solu-MEDROL) 30 mg Q12HR IVP 11/24/18 21:00 12/24/18 20:59 11/25/18 09:32 Ondansetron HCl (Zofran) 4 mg Q4H PRN IVP Nausea & Vomiting 11/24/18 15:30 12/24/18 15:29 Pantoprazole (Protonix) 40 mg ACBREAKFAST ORAL 11/24/18 16:00 12/24/18 15:59 11/25/18 05:59 Assessment/Plan Assessment/Plan: Hematology Consultation REQ MD: Rosmery Orantes [facility]: DVT and PE and mass like lesion in lung DOS 11/25/18 ID 57 y old male has a history of COPD. Patient uses a steroid inhaler daily. Patient states that he lost his inhaler. He has been feeling short of breath for the last day or 2. Patient contacted EMS and was prior further evaluation. On arrival patient appears severely short of breath. EMS had given patient 2 doses of albuterol in route. Patient denies any fever. Denies any nausea vomiting diarrhea chills. Does complain some chest discomfort because of shortness of breath. Patient states that he also has a history of DVT with left lower extremity pain. He is currently on warfarin. He states that he is compliant with medications. No other complaints are noted. Symptoms noted to be highly severe to critical. No other modifying factors. No other associated signs and symptoms. No other complaints were noted. Coded Allergies: PENICILLINS (Verified Allergy, Unknown, 11/24/18) Patient History Past Medical History: DM, HTN, asthma, COPD Past Surgical History: none Pertinent Family History: none Social History: Reports: smoking - Previous history; Denies: drug use Reviewed Nursing Documentation: PMH: Agreed; PSxH: Agreed Nursing Documentation-PMH Past Medical History: No History, Except For Hx Cardiac Problems: No - hyperthyroidism, DVT, CVA Hx Hypertension: Yes Hx Asthma: Yes Hx COPD: Yes Hx Diabetes: Yes Hx Gastrointestinal Problems: No - ABD surgery on 2013 Review of Systems All Other Systems: negative except mentioned in HPI Physical Exam Vitals: reviewed General Appearance: NAD HEENT: normocephalic, atraumatic Neck: non-tender, normal alignment Respiratory/Chest: normal breath sounds bilaterally Cardiovascular/Chest: normal peripheral pulses, normal rate Abdomen: normal bowel sounds, soft, nonten Ext: no cce Labs: noted Imaging: noted Assessment and Recs: # Bilateral pulmonary emboli in the setting of recent DVT and NONCOMPLIANCE --> initially admitted to the icu, and started on hep gtt --> before was on coumadin but noncomplaint --> okay to transition to eliquis and have dw Balfe --> consider 2d echo since submassive PE # DVT hx at this time, given noncompliance --> needs to take at minimum 3 mo anticoag and then reaccess # 9mm masslike opacity in the left upper lobe. Adjacency to bronchiectatic bronchus suggests this is most likely postinflammatory change, but the possibility of a mass lesion should also be considered. --> PET/CT imaging or 3 month follow-up conventional CT is recommended --> pulm aware # Leukocytosis is due to steriods --> taper per pulm # Respiratory failure, acute in setting of smoker --> as per pulm, bipap, better # COPD exacerbation --> steriods as needed breathing rx # Dvt ppx eliquis for now The timing of this note does not necessarily reflect the time of the patient was seen. Greatly appreciate consultation. Edilberto Devries MD Nov 25, 2018 16:01
--- NOTE | 2018-11-25 16:30 | NUR ---
NURSE NOTES: Pt had BM x1, soft/formed/brown; pt is able to ambulate to the toilet in his room and was assisted with changing of gown, bed linens. 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 RT at bedside; pt was given Duoneb treatment, pt is now on room air with 97% Sp02. Denies chest pain or any other discomfort.
--- NOTE | 2018-11-25 18:00 | NUR ---
NURSE NOTES: Order was received from Dr Wagner to transfer pt to Tele. Order has been processed and awaiting for bed availability. Pt is resting in bed, watching TV, denies any discomfort. VS stable; currently remains on room air with 96% O2Sat.
[2018-11-25] MEDS ORDERED: Isovue-370 150ml vial INJ PRN (18:30)
--- NOTE | 2018-11-25 18:30 | NUR ---
TRANSFER TO FLOOR: Patient transferred to Tele from ICU per MD order, transferred via hospital bed, while Tele monitor on pt. Hand off report was given to Kailyn JARRETT. Belonging's list was checked and signed with the receiving nurse in front of the pt. Pt is on room, afebrile and with stable VS, denies any discomfort. Skin is intact. Bed was locked, in lowest position with three side rails up and call light placed within easy reach. Endorsed plan of care.
--- NOTE | 2018-11-25 18:40 | Cardiology Report ---
APPROVED REPORT EXAM: Two-dimensional and M-mode echocardiogram with Doppler and color Doppler. INDICATION Chest Pain M-Mode DIMENSIONS IVSd1.2 (0.7-1.1cm)Left Atrium (MM)2.5 (1.6-4.0cm) LVDd4.0 (3.5-5.6cm)Aortic Root3.7 (2.0-3.7cm) PWd1.2 (0.7-1.1cm)Aortic Cusp Exc.1.8 (1.5-2.0cm) IVSs1.3 cm LVDs2.6 (2.5-4.0cm) PWs1.4 cm Technically difficult study due to poor acoustical windows. Normal left ventricular chamber size, systolic function and wall motion to extent visualized. Left ventricular ejection fraction estimated to be 60 %. No left ventricular hypertrophy . No evidence of pericardial effusion. All other cardiac chamber sizes are within normal limits. Focal aortic valve sclerosis with adequate cusp excursion. Thickened mitral valve leaflets with normal excursion. Mitral annulus and aortic root calcification. Normal pulmonic valve structure. Normal tricuspid valve structure. IVC at normal size with physiologic collapse. A color flow and spectral Doppler study was performed and revealed: No aortic regurgitation.. Trace mitral regurgitation. Mitral diastolic velocities suggest reduced left ventricular relaxation c/w mild LV diastolic dysfunction (Grade I ). Trace tricuspid regurgitation. Tricuspid systolic velocities suggests peak right ventricular systolic pressure of 12 mmHg.
--- NOTE | 2018-11-25 18:55 | Cardiology Report ---
APPROVED REPORT EKG Measurement Heart [id number] Normal sinus rhythm Possible Left atrial enlargement Incomplete right bundle branch block Left anterior fascicular block Abnormal ECG
--- NOTE | 2018-11-25 19:45 | NUR ---
HAND-OFF: Report given to LUIZA Pham. Plan of care endorsed
--- NOTE | 2018-11-25 19:46 | NUR ---
NURSE NOTES: Received report from LUIZA Avina. Pt is awake and resting in bed. In no acute distress. IV lines intact and patent. Bed in lowest position, call light within reach. Will continue plan of care.
[2018-11-26] VITALS: BP 117/77
[2018-11-26] MEDS: Albuterol/Ipratropium 3ml neb HHN SCH ×6 (03:18→23:12)
[2018-11-26 04:00] VITALS: BP 105/61
--- NOTE | 2018-11-26 04:45 | Progress Note ---
DATE: 11/25/2018 SUBJECTIVE: The patient is in the ICU. Admitted for COPD exacerbation. The wheezing and shortness of breath and cough are improving somewhat. The patient feels somewhat better. The patient also has DVT for which Dr. Devries and Dr. Wagner are seeing the patient. breathing treatments and steroid. ASSESSMENT AND PLAN: Hemodynamically stable. TREATMENT PLAN: COPD exacerbation is improving per Dr. Wagner. DVT per Dr. Edilberto Devries, and the patient is noncompliant with medications. Ti Goss M.D. DR: МАРИЯ JOB#: [id number] CC:
[2018-11-26] MEDS: NovoLOG Insulin Flexpen SUBQ SCH ×4 (06:30→20:50)
--- NOTE | 2018-11-26 07:30 | NUR ---
HAND-OFF: Report given to LUIZA Gomez.
--- NOTE | 2018-11-26 07:31 | NUR ---
NURSE NOTES: Received patient in bed. In no apparent distress. Awake, alert, call light within reach. With nasal cannula at 2LPM. Denies SOB at this time. Will continue plan of care.
[2018-11-26 07:32] LABS: HEMATOCRIT 38.2 % (42.0-52.0); HEMOGLOBIN 12.2 G/DL (14.2-18.0); MEAN CORPUSCULAR VOLUME 80 FL (80-99); PLATELET COUNT 188 K/UL (150-450); RED BLOOD COUNT 4.79 M/UL (4.70-6.10); RED CELL DISTRIBUTION WIDTH 17.1 % (11.6-14.8); WHITE BLOOD COUNT 13.7 K/UL (4.8-10.8)
[2018-11-26 08:00] VITALS: BP 120/76
[2018-11-26 08:08] LABS: ANION GAP 6 mmol/L (5-15); BLOOD UREA NITROGEN 22 mg/dL (7-18); CALCIUM 8.2 MG/DL (8.5-10.1); CARBON DIOXIDE 29 MMOL/L (21-32); CHLORIDE 104 MMOL/L (98-107); CREATININE 0.8 MG/DL (0.55-1.30); POTASSIUM 4.3 MMOL/L (3.5-5.1); SODIUM 139 MMOL/L (136-145)
[2018-11-26] MEDS: Solu-MEDROL 40mg Inj IVP SCH (08:31)
[2018-11-26] MEDS: Eliquis 5mg tablet ORAL SCH ×2 (08:32→17:10)
[2018-11-26] MEDS: Docusate 100mg cap ORAL SCH ×2 (08:32→17:26)
--- NOTE | 2018-11-26 09:29 | Pulmonolgy Critical Care Note ---
Critical Care - Asmt/Plan Assessment/Plan: Pulmonary Critical Care Progress Note HPI Patient is a 57 year old man with a past medical history of COPD, recently diagnosed left lower extremity DVT - not complaint on Coumadin. Patient uses a steroid inhaler daily, he recently lost his inhaler. He has been feeling short of breath for the last 1-2 days Patient denies cough, hemoptysis, fever. Denies any nausea vomiting diarrhea chills. Does complain some chest discomfort.. No other complaints are noted. Noted to have a Pulmonary Embolism on CTA in the ED, no focal infiltrates on CXR. Denies SOB, O2 being weaned Echo: LVEF 60%, PAP 12 Allergies: PENICILLINS Past Medical History: DM, HTN, asthma, COPD, Hyperthyroidism, DVT, CVA, Abdominal surgery 2013 All Other Systems: negative except mentioned in HPI LESS sob Physical Exam Vital Signs Noted General Appearance: alert, mild distress Head: normocephalic, atraumatic Eyes: bilateral eye normal inspection ENT: normal ENT inspection, hearing grossly normal, normal voice Neck: normal inspection, full range of motion, supple, no bony tend Respiratory: respiratory distress, decreased breath sounds, occasional wheezing Cardiovascular: no edema, tachycardia, HS1, HS2 normal Gastrointestinal: normal inspection, normal bowel sounds, non tender, soft, no guarding, no hernia Musculoskeletal: normal inspection, back normal, normal range of motion Neurologic: normal inspection, alert, responsive Skin: no rash, no edema Impression: Bilateral Pulmonary Embolism Hypoxic Respiratory failure, acute Chronic Obstructive Pulmonary Disease exacerbation Left Upper Lobe 9mm possibly inflammatory Pulmonary Nodule Diabetes Hypertension history Hyperthyroidism history Plan: Eliiquis 5MG bid HHN Solumedrol - Wean as tolerated O2 PRN Monitor labs PPX ISS PRN Labs Noted EKG: Rate: normal Rhythm: NSR ST Segments: no acute changes Chest XR: No acute disease CT Chest : Positive pulmonary embolism bilaterally, R>L, possible 9mm inflammatory nodule TRAVIS - will need 3 month follow up. Critical Care - Objective Last 24 Hour Vital Signs Date Time Temp Pulse Resp B/P (MAP) Pulse Ox O2 Delivery O2 Flow Rate FiO2 11/26/18 09:00 Nasal Cannula 2.0 11/26/18 08:00 97.6 80 18 120/76 (91) 98 11/26/18 07:49 70 11/26/18 07:45 94 Room Air 21 11/26/18 07:44 82 20 99 Room Air 21 85 20 94 11/26/18 04:00 79 11/26/18 04:00 97.9 79 18 105/61 (76) 95 11/26/18 03:18 66 18 98 Room Air 21 60 18 95 11/26/18 00:00 97.5 80 18 117/77 (90) 95 11/26/18 00:00 80 11/25/18 21:00 Nasal Cannula 2.0 11/25/18 20:00 69 11/25/18 20:00 98.1 69 18 134/71 (92) 95 11/25/18 19:58 72 18 99 Room Air 21 68 18 97 11/25/18 19:48 96 Nasal Cannula 2.0 28 11/25/18 18:00 73 23 114/81 (92) 96 11/25/18 17:00 83 23 124/87 (99) 96 11/25/18 16:00 98.2 70 18 115/83 (94) 95 11/25/18 16:00 81 11/25/18 16:00 Nasal Cannula 2.0 11/25/18 15:00 72 21 105/58 (74) 93 11/25/18 14:25 66 20 96 Nasal Cannula 2.0 28 11/25/18 14:00 79 20 109/77 (88) 93 11/25/18 13:00 79 19 103/73 (83) 90 11/25/18 12:00 98.0 56 16 111/79 (90) 100 11/25/18 12:00 54 11/25/18 12:00 Nasal Cannula 2.0 11/25/18 11:00 64 20 100 Nasal Cannula 2.0 28 11/25/18 11:00 52 17 120/80 (93) 100 11/25/18 10:00 63 19 111/66 (81) 100 Micro: Microbiology Date/Time Source Procedure Growth Status 11/24/18 09:00 Rectal Mucosa - Final NO CARBAPENEM-RESISTANT ENTEROBACTERI... Complete Accucheck: 134 Critical Care - Subjective ROS Limited/Unobtainable: No FI02: 21 Vent Support Breath Rate: 12 Vent Support Mode: BiLevel Sputum Amount: None I&O: Intake and Output 11/25/18 11/26/18 19:00 07:00 Intake Total 1224.9144 ml 500 ml Output Total 800 ml Balance 424.9144 ml 500 ml Intake Oral 1100 ml 500 ml IV Total 124.9144 ml Output Urine Total 800 ml # Voids 3 3 # Bowel Movements 1 Suman Wagner MD Nov 26, 2018 09:29
--- NOTE | 2018-11-26 09:38 | NUR ---
NURSE NOTES: Spoke with Dr. Wagner via telephone, with order received to discontinue IV push steroid and to start PO steroid tomorrow.
[2018-11-26 12:00] VITALS: BP 115/85
--- NOTE | 2018-11-26 14:57 | Consultation ---
Consult Note Consult Note Asked by Dr saini to eval the patinet DM, HTN, asthma, COPD Patient has a history of COPD. Patient uses a steroid inhaler daily. Patient states that he lost his inhaler. He has been feeling short of breath for the last day or 2. Patient contacted EMS and was prior further evaluation. On arrival patient appears severely short of breath. EMS had given patient 2 doses of albuterol in route. Patient denies any fever. Denies any nausea vomiting diarrhea chills. Does complain some chest discomfort because of shortness of breath. Patient states that he also has a history of DVT with left lower extremity pain. He is currently on warfarin. He states that he is compliant with medications. No other complaints are noted. Symptoms noted to be highly severe to critical. No other modifying factors. No other associated signs and symptoms. No other complaints were noted. PENICILLINS (Verified Allergy, Unknown, 11/24/18) Past Medical History: No History, Except For Hx Cardiac Problems: No - hyperthyroidism, DVT, CVA Hx Hypertension: Yes Hx Asthma: Yes Hx COPD: Yes Hx Diabetes: Yes Hx Gastrointestinal Problems: No - ABD surgery on 2013 rxamined data reviewed Assessment/Plan currently being treated for pulmonary embolism Mild Azotemia DM, HTN, BP stable asthma, COPD Left Upper Lobe 9mm possibly inflammatory Pulmonary Nodule Hyperthyroidism history Slow hydrate TFTs monitor lytes and renal parameters per orders per pulmonary mgt Jimenez Mosqueda MD Nov 26, 2018 14:57
--- NOTE | 2018-11-26 15:00 | NUR ---
NURSE NOTES: Dr. Wagner made aware regarding latest room air ABG result via telephone.. No new order made at this time.
--- NOTE | 2018-11-26 15:20 | NUR ---
CASE MANAGEMENT:REVIEW 11/26/18 SI: BILATERAL PULMONARY EMBOLISM. COPD LESS SOB 98.0 71 20 115/85 96% ON 2L/NC WBC+13.7 PO2-67.0 HCO3+26.6 IS: PREDNISONE 30MG PO QD PROTONIX PO BID ELIQUIS PO BID DUONEB HHN Q4HRS RTC : TELEMETRY STATUS DCP: FROM HOME
[2018-11-26 16:00] VITALS: BP 114/78
[2018-11-26 16:22] LABS: APPEARANCE,URINE CLEAR; BILIRUBIN, URINE NEGATIVE (NEGATIVE); COLOR,URINE PALE YELLOW; GLUCOSE, URINE (UA) NEGATIVE (NEGATIVE); KETONES,URINE 1+ (NEGATIVE); LEUKOCYTE ESTERASE ,URINE NEGATIVE (NEGATIVE); NITRITE,URINE NEGATIVE (NEGATIVE); PH,URINE 6.5 (4.5-8.0); PROTEIN,URINE NEGATIVE (NEGATIVE); UROBILINOGEN,URINE NORMAL MG/DL (0.0-1.0)
--- NOTE | 2018-11-26 16:30 | NUR ---
*-* INSURANCE *-* ALL CLINICALS AND REVIEWS HAVE BEEN FAXED TO: [facility] [place], [place]#[id number] [employer] Man: Mary ext. [phone]
--- NOTE | 2018-11-26 19:15 | NUR ---
NURSE NOTES: Received patient from LUIZA Gomez, patient in stable condition, AOx4, denies pain at this time, on O2n/c@2L, resting in bed, bed low&locked, side rails up x2, call light within easy reach, will continue to monitor and reassess.
--- NOTE | 2018-11-26 19:25 | NUR ---
HAND-OFF: Report given to Hellen Banerjee RN.
[2018-11-26 20:00] VITALS: BP 126/76
--- NOTE | 2018-11-26 20:38 | General Progress Note ---
Assessment/Plan Problem List: (1) Asthma ICD Codes: J45.909 - Unspecified asthma, uncomplicated SNOMED: 245223659 (2) Asthma attack ICD Codes: J45.901 - Unspecified asthma with (acute) exacerbation SNOMED: 649521184 (3) Dyspnea ICD Codes: R06.00 - Dyspnea, unspecified SNOMED: 095535073 (4) Pulmonary embolism ICD Codes: I26.99 - Other pulmonary embolism without acute cor pulmonale SNOMED: 67067814 (5) Respiratory failure, acute ICD Codes: J96.00 - Acute respiratory failure, unspecified whether with hypoxia or hypercapnia SNOMED: 91445019 (6) COPD exacerbation ICD Codes: J44.1 - Chronic obstructive pulmonary disease with (acute) exacerbation SNOMED: 935419022 (7) Respiratory distress ICD Codes: R06.03 - Acute respiratory distress SNOMED: 382404488 Status: progressing Assessment/Plan: copd exacerbation is improving afebrile no wheezing clinically improving Subjective ROS Limited/Unobtainable: Yes Allergies: Coded Allergies: PENICILLINS (Verified Allergy, Unknown, 11/24/18) Objective Last 24 Hour Vital Signs Date Time Temp Pulse Resp B/P (MAP) Pulse Ox O2 Delivery O2 Flow Rate FiO2 11/26/18 20:00 97.5 71 18 126/76 (93) 97 11/26/18 20:00 71 11/26/18 19:37 70 20 99 Nasal Cannula 2.0 28 73 20 97 11/26/18 19:24 97 Nasal Cannula 2.0 28 11/26/18 16:00 97.7 71 18 114/78 (90) 97 11/26/18 15:24 80 11/26/18 14:56 70 20 99 Nasal Cannula 2.0 28 67 20 96 11/26/18 12:16 97 11/26/18 12:00 98.0 71 20 115/85 (95) 100 11/26/18 09:00 Nasal Cannula 2.0 11/26/18 08:00 97.6 80 18 120/76 (91) 98 11/26/18 07:49 70 11/26/18 07:45 94 Room Air 21 11/26/18 07:44 82 20 99 Room Air 21 85 20 94 11/26/18 04:00 79 11/26/18 04:00 97.9 79 18 105/61 (76) 95 11/26/18 03:18 66 18 98 Room Air 21 60 18 95 11/26/18 00:00 97.5 80 18 117/77 (90) 95 11/26/18 00:00 80 11/25/18 21:00 Nasal Cannula 2.0 Intake and Output 11/25/18 11/26/18 19:00 07:00 Intake Total 1224.9144 ml 500 ml Output Total 800 ml Balance 424.9144 ml 500 ml Intake Oral 1100 ml 500 ml IV Total 124.9144 ml Output Urine Total 800 ml # Voids 3 3 # Bowel Movements 1 Laboratory Tests 11/26/18 05:43: White Blood Count 13.7H, Red Blood Count 4.79, Hemoglobin 12.2L, Hematocrit 38.2L, Mean Corpuscular Volume 80, Mean Corpuscular Hemoglobin 25.5L, Mean Corpuscular Hemoglobin Concent 32.0, Red Cell Distribution Width 17.1H, Platelet Count 188, Mean Platelet Volume 6.5, Neutrophils (%) (Auto) , Lymphocytes (%) (Auto) , Monocytes (%) (Auto) , Eosinophils (%) (Auto) , Basophils (%) (Auto) , Differential Total Cells Counted 100, Neutrophils % ( Manual) 88H, Lymphocytes % (Manual) 8L, Monocytes % (Manual) 4, Eosinophils % ( Manual) 0, Basophils % (Manual) 0, Band Neutrophils 0, Platelet Estimate Adequate, Platelet Morphology Normal, Red Blood Cell Morphology Normal, Sodium Level 139, Potassium Level 4.3, Chloride Level 104, Carbon Dioxide Level 29, Anion Gap 6, Blood Urea Nitrogen 22H, Creatinine 0.8, Estimat Glomerular Filtration Rate > 60, Glucose Level 122H, Calcium Level 8.2L 11/26/18 14:18: Arterial Blood pH 7.440, Arterial Blood Partial Pressure CO2 40.0, Arterial Blood Partial Pressure O2 67.0L, Arterial Blood HCO3 26.6H, Arterial Blood Oxygen Saturation 93.1L, Arterial Blood Base Excess 2.3H, Ney Test Positive 11/26/18 15:45: Urine Color Pale yellow, Urine Appearance Clear, Urine pH 6.5, Urine Specific [place] 1.010, Urine Protein Negative, Urine Glucose (UA) Negative, Urine Ketones 1+H, Urine Blood Negative, Urine Nitrite Negative, Urine Bilirubin Negative, Urine Urobilinogen Normal, Urine Leukocyte Esterase Negative, Urine RBC 0-2H, Urine WBC 0-2, Urine Squamous Epithelial Cells None, Urine Bacteria Few Height (Feet): 6 Height (Inches): 2.00 Weight (Pounds): 168 Cardiovascular: normal rate Respiratory/Chest: lungs clear Abdomen: soft Ti Goss MD Nov 26, 2018 20:38
[2018-11-27] VITALS: BP 128/71
[2018-11-27] MEDS: Albuterol/Ipratropium 3ml neb HHN SCH ×6 (03:00→23:00)
[2018-11-27 04:00] VITALS: BP 130/62
[2018-11-27] MEDS: NovoLOG Insulin Flexpen SUBQ SCH ×4 (06:30→20:50)
--- NOTE | 2018-11-27 07:05 | NUR ---
HAND-OFF: Report given to LUIZA Olmstead, patient in stable condition, plan of care endorsed.
[2018-11-27 08:00] VITALS: BP 120/79
[2018-11-27] MEDS: Eliquis 5mg tablet ORAL SCH ×2 (08:52→18:07)
[2018-11-27] MEDS: Docusate 100mg cap ORAL SCH ×3 (08:54→15:08)
--- NOTE | 2018-11-27 08:59 | Nephrology Progress Note ---
Assessment/Plan Problem List: (1) Pulmonary embolism (2) Azotemia (3) HTN (hypertension) (4) Hyperthyroidism Assessment currently being treated for pulmonary embolism Mild Azotemia DM, HTN, BP stable asthma, COPD Left Upper Lobe 9mm possibly inflammatory Pulmonary Nodule Hyperthyroidism history Plan todays labs pending Slow hydrate TFTs monitor lytes and renal parameters per orders per pulmonary mgt Subjective ROS Limited/Unobtainable: No Constitutional: Reports: malaise Objective Objective Last 24 Hour Vital Signs Date Time Temp Pulse Resp B/P (MAP) Pulse Ox O2 Delivery O2 Flow Rate FiO2 11/27/18 07:48 98 Nasal Cannula 2.0 28 11/27/18 04:00 64 11/27/18 04:00 97.4 80 18 130/62 (84) 97 11/27/18 00:00 75 11/27/18 00:00 97.5 74 18 128/71 (90) 97 11/26/18 23:22 71 20 99 Nasal Cannula 2.0 28 70 20 97 11/26/18 21:00 Nasal Cannula 2.0 11/26/18 20:00 97.5 71 18 126/76 (93) 97 11/26/18 20:00 71 11/26/18 19:37 70 20 99 Nasal Cannula 2.0 28 73 20 97 11/26/18 19:24 97 Nasal Cannula 2.0 28 11/26/18 16:00 97.7 71 18 114/78 (90) 97 11/26/18 15:24 80 11/26/18 14:56 70 20 99 Nasal Cannula 2.0 28 67 20 96 11/26/18 12:16 97 11/26/18 12:00 98.0 71 20 115/85 (95) 100 11/26/18 09:00 Nasal Cannula 2.0 Intake and Output 11/26/18 11/27/18 18:59 06:59 Intake Total 1650 ml 50 ml Output Total 150 ml Balance 1500 ml 50 ml Intake Oral 600 ml IV Total 1050 ml 50 ml Output Urine Total 150 ml # Voids 2 2 Laboratory Tests 11/26/18 14:18: Arterial Blood pH 7.440, Arterial Blood Partial Pressure CO2 40.0, Arterial Blood Partial Pressure O2 67.0L, Arterial Blood HCO3 26.6H, Arterial Blood Oxygen Saturation 93.1L, Arterial Blood Base Excess 2.3H, Ney Test Positive 11/26/18 15:45: Urine Color Pale yellow, Urine Appearance Clear, Urine pH 6.5, Urine Specific [place] 1.010, Urine Protein Negative, Urine Glucose (UA) Negative, Urine Ketones 1+H, Urine Blood Negative, Urine Nitrite Negative, Urine Bilirubin Negative, Urine Urobilinogen Normal, Urine Leukocyte Esterase Negative, Urine RBC 0-2H, Urine WBC 0-2, Urine Squamous Epithelial Cells None, Urine Bacteria Few Height (Feet): 6 Height (Inches): 2.00 Weight (Pounds): 168 General Appearance: no apparent distress Objective no change Jimenez Mosqueda MD Nov 27, 2018 08:59
--- NOTE | 2018-11-27 09:11 | Hematology/Onc Progress Note ---
Assessment/Plan Assessment/Plan Assessment and Recs: # Bilateral pulmonary emboli in the setting of recent DVT and NONCOMPLIANCE --> initially admitted to the icu, and started on hep gtt which have now been discontinued --> before was on coumadin but noncomplaint --> okay to transition to eliquis po which has been started --> recommend at least 3 mo of anticoag # DVT hx at this time, given noncompliance --> needs to take at minimum 3 mo anticoag and then reaccess # 9mm masslike opacity in the left upper lobe. Adjacency to bronchiectatic bronchus suggests this is most likely postinflammatory change, but the possibility of a mass lesion should also be considered. --> PET/CT imaging or 3 month follow-up conventional CT is recommended --> pulm aware # Leukocytosis is due to steroids --> taper per pulm # Respiratory failure, acute in setting of smoker --> as per pulm, bipap, better # COPD exacerbation --> steriods as needed breathing rx # Dvt ppx eliquis for now The timing of this note does not necessarily reflect the time of the patient was seen. Greatly appreciate consultation. Subjective Constitutional: Denies: no symptoms, chills, fever, malaise, weakness, other HEENT: Denies: no symptoms, eye pain, blurred vision, tearing, double vision, ear pain, ear discharge, nose pain, nose congestion, throat pain, throat swelling, mouth pain, mouth swelling, other Cardiovascular: Denies: no symptoms, chest pain, edema, irregular heart rate, lightheadedness, palpitations, syncope, other Respiratory: Denies: no symptoms, cough, shortness of breath, SOB with excertion, SOB at rest, sputum, wheezing, other Genitourinary: Denies: no symptoms, burning, discharge, frequency, flank pain, hematuria, incontinence, pain, urgency, other Endocrine: Denies: no symptoms, excessive sweating, flushing, intolerance to cold, intolerance to heat, increased hunger, increased thirst, increased urine, unexplained weight gain, unexplained weight loss, other Allergies: Coded Allergies: PENICILLINS (Verified Allergy, Unknown, 11/24/18) Subjective 11/27: no events to report, on 2l nc, no bleeding, on anticoag Objective Objective Current Medications Medications (Trade) Dose Ordered Sig/Darya Route PRN Reason Start Time Stop Time Status Last Admin Dose Admin Acetaminophen (Tylenol) 650 mg Q6H PRN ORAL Fever(T>100.5F)/Pain 11/25/18 18:30 12/24/18 18:29 11/26/18 08:40 Albuterol/ Ipratropium (Albuterol/ Ipratropium) 3 ml Q4HRT HHN 11/25/18 19:00 11/29/18 15:59 11/26/18 23:12 Apixaban (Eliquis) 5 mg BID ORAL 11/26/18 09:00 12/25/18 10:59 11/27/18 08:52 Dextrose (Dextrose 50%) 25 ml Q30M PRN IV Hypoglycemia 11/25/18 18:30 12/24/18 15:59 Dextrose (Dextrose 50%) 50 ml Q30M PRN IV Hypoglycemia 11/25/18 18:30 12/24/18 15:59 Docusate Sodium (Colace) 100 mg TID ORAL 11/26/18 18:00 12/24/18 20:59 Insulin Aspart (NovoLOG) BEFORE MEALS AND HS SUBQ 11/25/18 21:00 12/24/18 16:29 Ondansetron HCl (Zofran) 4 mg Q4H PRN IVP Nausea & Vomiting 11/25/18 18:30 12/24/18 18:29 Pantoprazole (Protonix) 40 mg EVERY 12 HOURS ORAL 11/26/18 21:00 12/24/18 15:59 11/27/18 08:53 Prednisone (predniSONE) 30 mg DAILY ORAL 11/27/18 09:00 12/27/18 08:59 11/27/18 08:52 Sodium Chloride 1,000 ml @ 50 mls/hr Q20H IV 11/26/18 16:00 12/26/18 15:59 11/26/18 17:08 Last 24 Hour Vital Signs Date Time Temp Pulse Resp B/P (MAP) Pulse Ox O2 Delivery O2 Flow Rate FiO2 11/27/18 08:00 97.3 83 18 120/79 (93) 95 11/27/18 07:48 98 Nasal Cannula 2.0 28 11/27/18 04:00 64 11/27/18 04:00 97.4 80 18 130/62 (84) 97 11/27/18 00:00 75 11/27/18 00:00 97.5 74 18 128/71 (90) 97 11/26/18 23:22 71 20 99 Nasal Cannula 2.0 28 70 20 97 11/26/18 21:00 Nasal Cannula 2.0 11/26/18 20:00 97.5 71 18 126/76 (93) 97 11/26/18 20:00 71 11/26/18 19:37 70 20 99 Nasal Cannula 2.0 28 73 20 97 11/26/18 19:24 97 Nasal Cannula 2.0 28 11/26/18 16:00 97.7 71 18 114/78 (90) 97 11/26/18 15:24 80 11/26/18 14:56 70 20 99 Nasal Cannula 2.0 28 67 20 96 11/26/18 12:16 97 11/26/18 12:00 98.0 71 20 115/85 (95) 100 11/26/18 09:00 Nasal Cannula 2.0 11/26/18 08:00 97.6 80 18 120/76 (91) 98 11/26/18 07:49 70 11/26/18 07:45 94 Room Air 21 11/26/18 07:44 82 20 99 Room Air 21 85 20 94 11/26/18 04:00 79 11/26/18 04:00 97.9 79 18 105/61 (76) 95 11/26/18 03:18 66 18 98 Room Air 21 60 18 95 11/26/18 00:00 97.5 80 18 117/77 (90) 95 11/26/18 00:00 80 11/25/18 21:00 Nasal Cannula 2.0 11/25/18 20:00 69 11/25/18 20:00 98.1 69 18 134/71 (92) 95 11/25/18 19:58 72 18 99 Room Air 21 68 18 97 11/25/18 19:48 96 Nasal Cannula 2.0 28 11/25/18 18:00 73 23 114/81 (92) 96 11/25/18 17:00 83 23 124/87 (99) 96 11/25/18 16:00 98.2 70 18 115/83 (94) 95 11/25/18 16:00 81 11/25/18 16:00 Nasal Cannula 2.0 11/25/18 15:00 72 21 105/58 (74) 93 11/25/18 14:25 66 20 96 Nasal Cannula 2.0 28 11/25/18 14:00 79 20 109/77 (88) 93 11/25/18 13:00 79 19 103/73 (83) 90 11/25/18 12:00 98.0 56 16 111/79 (90) 100 11/25/18 12:00 54 11/25/18 12:00 Nasal Cannula 2.0 11/25/18 11:00 64 20 100 Nasal Cannula 2.0 28 11/25/18 11:00 52 17 120/80 (93) 100 11/25/18 10:00 63 19 111/66 (81) 100 Intake and Output 11/26/18 11/27/18 18:59 06:59 Intake Total 1650 ml 50 ml Output Total 150 ml Balance 1500 ml 50 ml Intake Oral 600 ml IV Total 1050 ml 50 ml Output Urine Total 150 ml # Voids 2 2 Labs Test 11/24/18 09:10 11/24/18 10:00 11/24/18 13:53 11/24/18 19:55 Arterial Blood pH 7.385 (7.350-7.450) Arterial Blood Partial Pressure CO2 48.8 mmHg (35.0-45.0) Arterial Blood Partial Pressure O2 84.9 mmHg (75.0-100.0) Arterial Blood HCO3 28.5 mmol/L (22.0-26.0) Arterial Blood Oxygen Saturation 96.0 % (95-100) Arterial Blood Base Excess 2.7 (-2-2) Ney Test Positive Prothrombin Time 10.8 SEC (9.30-11.50) Prothromb Time International Ratio 1.0 (0.9-1.1) Activated Partial Thromboplast Time 23 SEC (23-33) 22 SEC (23-33) 130 SEC (23-33) White Blood Count 10.4 K/UL (4.8-10.8) Red Blood Count 5.56 M/UL (4.70-6.10) Hemoglobin 13.9 G/DL (14.2-18.0) Hematocrit 44.7 % (42.0-52.0) Mean Corpuscular Volume 80 FL (80-99) Mean Corpuscular Hemoglobin 24.9 PG (27.0-31.0) Mean Corpuscular Hemoglobin Concent 31.0 G/DL (32.0-36.0) Red Cell Distribution Width 17.1 % (11.6-14.8) Platelet Count 214 K/UL (150-450) Mean Platelet Volume 6.4 FL (6.5-10.1) Neutrophils (%) (Auto) % (45.0-75.0) Lymphocytes (%) (Auto) % (20.0-45.0) Monocytes (%) (Auto) % (1.0-10.0) Eosinophils (%) (Auto) % (0.0-3.0) Basophils (%) (Auto) % (0.0-2.0) Differential Total Cells Counted 100 Neutrophils % (Manual) 88 % (45-75) Lymphocytes % (Manual) 8 % (20-45) Monocytes % (Manual) 2 % (1-10) Eosinophils % (Manual) 0 % (0-3) Basophils % (Manual) 0 % (0-2) Band Neutrophils 2 % (0-8) Platelet Estimate Adequate Platelet Morphology Normal Anisocytosis 1+ Troponin I 0.000 ng/mL (0.000-0.056) Pro-B-Type Natriuretic Peptide 342 pg/mL (0-125) Test 11/25/18 03:30 11/26/18 05:43 11/26/18 14:18 11/26/18 15:45 White Blood Count 11.5 K/UL (4.8-10.8) 13.7 K/UL (4.8-10.8) Red Blood Count 4.73 M/UL (4.70-6.10) 4.79 M/UL (4.70-6.10) Hemoglobin 12.0 G/DL (14.2-18.0) 12.2 G/DL (14.2-18.0) Hematocrit 37.6 % (42.0-52.0) 38.2 % (42.0-52.0) Mean Corpuscular Volume 80 FL (80-99) 80 FL (80-99) Mean Corpuscular Hemoglobin 25.4 PG (27.0-31.0) 25.5 PG (27.0-31.0) Mean Corpuscular Hemoglobin Concent 31.9 G/DL (32.0-36.0) 32.0 G/DL (32.0-36.0) Red Cell Distribution Width 16.8 % (11.6-14.8) 17.1 % (11.6-14.8) Platelet Count 193 K/UL (150-450) 188 K/UL (150-450) Mean Platelet Volume 7.4 FL (6.5-10.1) 6.5 FL (6.5-10.1) Neutrophils (%) (Auto) % (45.0-75.0) % (45.0-75.0) Lymphocytes (%) (Auto) % (20.0-45.0) % (20.0-45.0) Monocytes (%) (Auto) % (1.0-10.0) % (1.0-10.0) Eosinophils (%) (Auto) % (0.0-3.0) % (0.0-3.0) Basophils (%) (Auto) % (0.0-2.0) % (0.0-2.0) Prothrombin Time 11.1 SEC (9.30-11.50) Prothromb Time International Ratio 1.0 (0.9-1.1) Activated Partial Thromboplast Time 63 SEC (23-33) Sodium Level 143 MMOL/L (136-145) 139 MMOL/L (136-145) Potassium Level 4.7 MMOL/L (3.5-5.1) 4.3 MMOL/L (3.5-5.1) Chloride Level 108 MMOL/L (98-107) 104 MMOL/L (98-107) Carbon Dioxide Level 30 MMOL/L (21-32) 29 MMOL/L (21-32) Anion Gap 5 mmol/L (5-15) 6 mmol/L (5-15) Blood Urea Nitrogen 26 mg/dL (7-18) 22 mg/dL (7-18) Creatinine 0.9 MG/DL (0.55-1.30) 0.8 MG/DL (0.55-1.30) Estimat Glomerular Filtration Rate > 60 mL/min (>60) > 60 mL/min (>60) Glucose Level 130 MG/DL (74-106) 122 MG/DL (74-106) Calcium Level 8.1 MG/DL (8.5-10.1) 8.2 MG/DL (8.5-10.1) Differential Total Cells Counted 100 Neutrophils % (Manual) 88 % (45-75) Lymphocytes % (Manual) 8 % (20-45) Monocytes % (Manual) 4 % (1-10) Eosinophils % (Manual) 0 % (0-3) Basophils % (Manual) 0 % (0-2) Band Neutrophils 0 % (0-8) Platelet Estimate Adequate Platelet Morphology Normal Red Blood Cell Morphology Normal Arterial Blood pH 7.440 (7.350-7.450) Arterial Blood Partial Pressure CO2 40.0 mmHg (35.0-45.0) Arterial Blood Partial Pressure O2 67.0 mmHg (75.0-100.0) Arterial Blood HCO3 26.6 mmol/L (22.0-26.0) Arterial Blood Oxygen Saturation 93.1 % (95-100) Arterial Blood Base Excess 2.3 (-2-2) Ney Test Positive Urine Color Pale yellow Urine Appearance Clear Urine pH 6.5 (4.5-8.0) Urine Specific [place] 1.010 (1.005-1.035) Urine Protein Negative (NEGATIVE) Urine Glucose (UA) Negative (NEGATIVE) Urine Ketones 1+ (NEGATIVE) Urine Blood Negative (NEGATIVE) Urine Nitrite Negative (NEGATIVE) Urine Bilirubin Negative (NEGATIVE) Urine Urobilinogen Normal MG/DL (0.0-1.0) Urine Leukocyte Esterase Negative (NEGATIVE) Urine RBC 0-2 /HPF (0 - 0) Urine WBC 0-2 /HPF (0 - 0) Urine Squamous Epithelial Cells None /LPF (NONE/OCC) Urine Bacteria Few /HPF (NONE) Height (Feet): 6 Height (Inches): 2.00 Weight (Pounds): 168 Objective Physical Exam Vitals: reviewed General Appearance: NAD HEENT: normocephalic, atraumatic Resp: normal breath sounds bilaterally CV: normal peripheral pulses, normal rate Abdomen: normal bowel sounds, soft, nonten Ext: no cce Edilberto Devries MD Nov 27, 2018 09:11
--- NOTE | 2018-11-27 09:26 | NUR ---
NURSE NOTES: Mr Lam had no co pain or discomfort this morning during initial assessment. Lung sounds diminished but clear. Voided 1100 clear yellow in urinal. Stated he had BM yesterday and refused colace this morning. Tolerated 100% of breakfast with no nvd. No co chest pain. No sign of respiratory or cardiac distress--breathing easily on RA. Ptient co "let me sleep--come back later!" eventually allowed VS (which were stable ) and labs to be drawn. OOB with slightly unsteady gait--patient stated "I walk on my own." THis RN insisted patient call for assist when getting oob. AOX4 with calm affect. Cont'd with plan of care. Bed in lowest locked position, call dixon and urinal in reach. NSR on tele and VSS Addendum: 11/27/18 at 1428 by Minesh Beltrán RN 1300 : patient oob to toilet for BM. Patient continued to state he "just needs to get some rest--feeling fine, don't need anything". 100% of lunch eaten. No co pain. Addendum: 11/27/18 at 1615 by Minesh Beltrán RN 1615: bl sugar 127 but patient refused insulin--explained insulin therapy and patient stated he understood, but refused insulin. Patient requested a sandwich now and got a chick salad sandwch.
[2018-11-27 09:34] LABS: BASOPHILS % (AUTO) 0.8 % (0.0-2.0); EOSINOPHILS % (AUTO) 2.2 % (0.0-3.0); HEMATOCRIT 40.7 % (42.0-52.0); HEMOGLOBIN 12.6 G/DL (14.2-18.0); LYMPHOCYTES % (AUTO) 22.3 % (20.0-45.0); MEAN CORPUSCULAR VOLUME 80 FL (80-99); MONOCYTES % (AUTO) 6.9 % (1.0-10.0); NEUTROPHILS % (AUTO) 67.8 % (45.0-75.0); PLATELET COUNT 192 K/UL (150-450); RED CELL DISTRIBUTION WIDTH 17.5 % (11.6-14.8); WHITE BLOOD COUNT 8.7 K/UL (4.8-10.8)
[2018-11-27 10:17] LABS: ALANINE AMINOTRANSFERASE 31 U/L (12-78); ALBUMIN 2.6 G/DL (3.4-5.0); ALBUMIN/GLOBULIN RATIO 0.8 (1.0-2.7); ALKALINE PHOSPHATASE 100 U/L (46-116); ANION GAP 5 mmol/L (5-15); ASPARTATE AMINO TRANSFERASE 18 U/L (15-37); BILIRUBIN,TOTAL 0.4 MG/DL (0.2-1.0); BLOOD UREA NITROGEN 22 mg/dL (7-18); CALCIUM 8.3 MG/DL (8.5-10.1); CARBON DIOXIDE 30 MMOL/L (21-32); CHLORIDE 102 MMOL/L (98-107); CHOLESTEROL 206 MG/DL (< 200); CREATINE KINASE 32 U/L (26-308); CREATININE 0.9 MG/DL (0.55-1.30); FERRITIN 81 NG/ML (8-388); GAMMA GLUTAMYL TRANSPEPTIDASE 31 U/L (5-85); HDL CHOLESTEROL 97 MG/DL (40-60); PHOSPHORUS 3.1 MG/DL (2.5-4.9); POTASSIUM 3.7 MMOL/L (3.5-5.1); SODIUM 137 MMOL/L (136-145); TRIGLYCERIDES 73 MG/DL (30-150)
[2018-11-27 10:22] LABS: % IRON SATURATION 44 % (15-50); IRON 113 ug/dL (50-175); TOTAL IRON BINDING CAPACITY 259 ug/dL (250-450)
[2018-11-27 12:00] VITALS: BP 102/63
--- NOTE | 2018-11-27 14:05 | NUR ---
HOMELESS COORDINATOR HC spoke with patient and patient is alert and oriented. Patient does not have a contact number Patient states he is currently chronically homeless. Patient refuses resources for a correction. Patient states address listed on face sheet is mailing address. Patient states he was recently at a terrible board and care that did not care about him or his health. Patient states he was paying $500. Patient states after leaving the board and care he started staying on [facility] and [place]. Patient states his health problems caused him to lose his apartment which contributes to his homelessness. Patient states he is receiving $1000 in SSI. Patient states he has not used and drugs recently but declined to tell HC his choice of drug. Patient states he currently struggles with depression and is currently seeing his mental health worker about it. Patient refuse to give more information. Patient states he would like to go to a snf for placement or recup care. Patient states his current PCP is; [address] [address] . Patient has a appointment Dec 11 @ 10:00am
--- NOTE | 2018-11-27 15:00 | Pulmonolgy Critical Care Note ---
Critical Care - Asmt/Plan Assessment/Plan: Pulmonary Critical Care Progress Note HPI Patient is a 57 year old man with a past medical history of COPD, recently diagnosed left lower extremity DVT - not complaint on Coumadin. Patient uses a steroid inhaler daily, he recently lost his inhaler. He has been feeling short of breath for the last 1-2 days Patient denies cough, hemoptysis, fever. Denies any nausea vomiting diarrhea chills. Does complain some chest discomfort.. No other complaints are noted. Noted to have a Pulmonary Embolism on CTA in the ED, no focal infiltrates on CXR. Denies SOB, O2 being weaned, RA PaO2 adequate on RA Echo: LVEF 60%, PAP 12 Allergies: PENICILLINS Past Medical History: DM, HTN, asthma, COPD, Hyperthyroidism, DVT, CVA, Abdominal surgery 2013 All Other Systems: negative except mentioned in HPI LESS sob Physical Exam Vital Signs Noted General Appearance: alert, mild distress Head: normocephalic, atraumatic Eyes: bilateral eye normal inspection ENT: normal ENT inspection, hearing grossly normal, normal voice Neck: normal inspection, full range of motion, supple, no bony tend Respiratory: respiratory distress, decreased breath sounds, occasional wheezing Cardiovascular: no edema, tachycardia, HS1, HS2 normal Gastrointestinal: normal inspection, normal bowel sounds, non tender, soft, no guarding, no hernia Musculoskeletal: normal inspection, back normal, normal range of motion Neurologic: normal inspection, alert, responsive Skin: no rash, no edema Impression: Bilateral Pulmonary Embolism Hypoxic Respiratory failure, acute Chronic Obstructive Pulmonary Disease exacerbation Left Upper Lobe 9mm possibly inflammatory Pulmonary Nodule Diabetes Hypertension history Hyperthyroidism history Plan: Eliiquis 5MG bid HHN Solumedrol - Wean as tolerated O2 PRN Monitor labs PPX ISS PRN Labs Noted EKG: Rate: normal Rhythm: NSR ST Segments: no acute changes Chest XR: No acute disease CT Chest : Positive pulmonary embolism bilaterally, R>L, possible 9mm inflammatory nodule TRAVIS - will need 3 month follow up. Critical Care - Objective Last 24 Hour Vital Signs Date Time Temp Pulse Resp B/P (MAP) Pulse Ox O2 Delivery O2 Flow Rate FiO2 11/27/18 12:00 75 11/27/18 12:00 98.6 83 18 102/63 (76) 97 11/27/18 09:00 Nasal Cannula 2.0 11/27/18 08:00 57 11/27/18 08:00 97.3 83 18 120/79 (93) 95 11/27/18 07:48 98 Nasal Cannula 2.0 28 11/27/18 04:00 64 11/27/18 04:00 97.4 80 18 130/62 (84) 97 11/27/18 00:00 75 11/27/18 00:00 97.5 74 18 128/71 (90) 97 11/26/18 23:22 71 20 99 Nasal Cannula 2.0 28 70 20 97 11/26/18 21:00 Nasal Cannula 2.0 11/26/18 20:00 97.5 71 18 126/76 (93) 97 11/26/18 20:00 71 11/26/18 19:37 70 20 99 Nasal Cannula 2.0 28 73 20 97 11/26/18 19:24 97 Nasal Cannula 2.0 28 11/26/18 16:00 97.7 71 18 114/78 (90) 97 11/26/18 15:24 80 Accucheck: 101 Critical Care - Subjective ROS Limited/Unobtainable: No FI02: 28 Vent Support Breath Rate: 12 Vent Support Mode: BiLevel Sputum Amount: None I&O: Intake and Output 11/26/18 11/27/18 19:00 07:00 Intake Total 1700 ml Output Total 150 ml Balance 1550 ml Intake Oral 600 ml IV Total 1100 ml Output Urine Total 150 ml # Voids 2 2 Suman Wagner MD Nov 27, 2018 15:00
[2018-11-27 15:50] VITALS: BP 113/74
--- NOTE | 2018-11-27 16:07 | NUR ---
CASE MANAGEMENT:REVIEW 11/27/18 SI: BILATERAL PULMONARY EMBOLISM. COPD 97.2 74 18 113/74 95% ON RA IS: PREDNISONE 30MG PO QD PROTONIX PO BID ELIQUIS PO BID DUONEB HHN Q4HRS RTC IVF@50/HR : TELEMETRY STATUS DCP: FROM HOME
--- NOTE | 2018-11-27 19:27 | NUR ---
NURSE NOTES: Report received from LUIZA Olmstead. Observed pt sleeping in the bed, arousable. SR on library monitor. On room air with no signs of sob. IV on L UA 18G, running NS at 50cc/hr. Bed in the lowest position. Side rails up x2. Call light within reach. Will continue to monitor.
[2018-11-27 20:00] VITALS: BP 108/75
--- NOTE | 2018-11-27 20:50 | NUR ---
NURSE NOTES: pt refused insulin and protonix 2100 meds. Explained benefits and risks, still refused. BS of 123 noted.
--- NOTE | 2018-11-27 21:09 | General Progress Note ---
Assessment/Plan Problem List: (1) Asthma ICD Codes: J45.909 - Unspecified asthma, uncomplicated SNOMED: 218718305 (2) Asthma attack ICD Codes: J45.901 - Unspecified asthma with (acute) exacerbation SNOMED: 407862895 (3) Dyspnea ICD Codes: R06.00 - Dyspnea, unspecified SNOMED: 905525314 (4) Pulmonary embolism ICD Codes: I26.99 - Other pulmonary embolism without acute cor pulmonale SNOMED: 06024866 (5) Respiratory failure, acute ICD Codes: J96.00 - Acute respiratory failure, unspecified whether with hypoxia or hypercapnia SNOMED: 42235024 (6) COPD exacerbation ICD Codes: J44.1 - Chronic obstructive pulmonary disease with (acute) exacerbation SNOMED: 420748322 (7) Respiratory distress ICD Codes: R06.03 - Acute respiratory distress SNOMED: 926150416 Status: progressing Assessment/Plan: copd exacerbation is improving dvt and PE ANTICOGULANT PER HEME/ONC NO SOB improving Subjective ROS Limited/Unobtainable: Yes Allergies: Coded Allergies: PENICILLINS (Verified Allergy, Unknown, 11/24/18) Objective Last 24 Hour Vital Signs Date Time Temp Pulse Resp B/P (MAP) Pulse Ox O2 Delivery O2 Flow Rate FiO2 11/27/18 20:00 83 11/27/18 20:00 97.3 89 20 108/75 (86) 97 11/27/18 19:51 76 18 99 Room Air 11/27/18 19:45 94 Room Air 11/27/18 19:40 83 20 94 11/27/18 16:00 69 11/27/18 15:50 97.2 74 18 113/74 (87) 95 11/27/18 12:00 75 11/27/18 12:00 98.6 83 18 102/63 (76) 97 11/27/18 09:00 Room Air 11/27/18 08:00 57 11/27/18 08:00 97.3 83 18 120/79 (93) 95 11/27/18 07:48 98 Nasal Cannula 2.0 28 11/27/18 04:00 64 11/27/18 04:00 97.4 80 18 130/62 (84) 97 11/27/18 00:00 75 11/27/18 00:00 97.5 74 18 128/71 (90) 97 11/26/18 23:22 71 20 99 Nasal Cannula 2.0 28 70 20 97 Intake and Output 11/26/18 11/27/18 19:00 07:00 Intake Total 1700 ml Output Total 150 ml Balance 1550 ml Intake Oral 600 ml IV Total 1100 ml Output Urine Total 150 ml # Voids 2 2 Laboratory Tests 11/27/18 09:10: White Blood Count 8.7, Red Blood Count 5.10, Hemoglobin 12.6L, Hematocrit 40.7L , Mean Corpuscular Volume 80, Mean Corpuscular Hemoglobin 24.7L, Mean Corpuscular Hemoglobin Concent 30.9L, Red Cell Distribution Width 17.5H, Platelet Count 192, Mean Platelet Volume 6.0L, Neutrophils (%) (Auto) 67.8, Lymphocytes (%) (Auto) 22.3, Monocytes (%) (Auto) 6.9, Eosinophils (%) (Auto) 2.2, Basophils (%) (Auto) 0.8, Sodium Level 137, Potassium Level 3.7, Chloride Level 102, Carbon Dioxide Level 30, Anion Gap 5, Blood Urea Nitrogen 22H, Creatinine 0.9, Estimat Glomerular Filtration Rate > 60, Glucose Level 101, Hemoglobin A1c 6.8H, Uric Acid 4.6, Calcium Level 8.3L, Phosphorus Level 3.1, Magnesium Level 1.8, Iron Level 113, Total Iron Binding Capacity 259, Percent Iron Saturation 44, Unsaturated Iron Binding 146, Ferritin 81, Total Bilirubin 0.4, Gamma Glutamyl Transpeptidase 31, Aspartate Amino Transf (AST/SGOT) 18, Alanine Aminotransferase (ALT/SGPT) 31, Alkaline Phosphatase 100, Total Creatine Kinase 32, C-Reactive Protein, Quantitative < 0.4, Pro-B-Type Natriuretic Peptide 137H, Total Protein 5.7L, Albumin 2.6L, Globulin 3.1, Albumin/Globulin Ratio 0.8L, Triglycerides Level 73, Cholesterol Level 206H, LDL Cholesterol 91, HDL Cholesterol 97H, Cholesterol/HDL Ratio 2.1L, Vitamin B12 Level 466, Folate 10.0, Thyroid Stimulating Hormone (TSH) 0.106L, Free Thyroxine 1.16, Free Triiodothyronine 1.7L Height (Feet): 6 Height (Inches): 2.00 Weight (Pounds): 168 Cardiovascular: regular rhythm Respiratory/Chest: lungs clear Abdomen: soft Ti Goss MD Nov 27, 2018 21:09
[2018-11-28] VITALS (7 sets, daily range): BP systolic 105–128; BP diastolic 65–85
[2018-11-28] MEDS: Albuterol/Ipratropium 3ml neb HHN SCH ×6 (00:25→23:11)
[2018-11-28] MEDS: NovoLOG Insulin Flexpen SUBQ SCH ×4 (06:30→20:32)
--- NOTE | 2018-11-28 06:53 | NUR ---
NURSE NOTES: pt refused insulin, benefits and risks explained and still refused. BS of 122 noted.
--- NOTE | 2018-11-28 07:36 | NUR ---
HAND-OFF: Report given to LUIZA Olmstead.
--- NOTE | 2018-11-28 08:03 | NUR ---
NURSE NOTES: Received report from LUIZA Allen who stated patient refused care overnight. Found patient in bed eating breakfast with calm, cooperative affect. AOX4 with call dixon and urinal in reach and bed in lowwest, locked position. Patient was breathing easily on RA with clear lung sounds on auscultation. Ate 100% of breakfast with no nvd. OOB to toilet with steady gait. Patient stated he slept well last night. IVF still running per MAY to L arm with cdi insertion/dressing site. NSR on telemetry and no CO chest pain. Cont'd with plan of care. Addendum: 11/28/18 at 1510 by Minesh Beltrán RN IVF stopped per Dr Wagner and venous duplex ordered. Patient breathing easily, occasioinlly refusing breathing treatments. Bl sugar well controlled. CTM
[2018-11-28] MEDS: Docusate 100mg cap ORAL SCH ×3 (09:00→16:46)
[2018-11-28] MEDS: Eliquis 5mg tablet ORAL SCH ×2 (09:14→17:57)
[2018-11-28 09:42] LABS: BASOPHILS % (AUTO) 0.4 % (0.0-2.0); EOSINOPHILS % (AUTO) 1.5 % (0.0-3.0); HEMATOCRIT 42.3 % (42.0-52.0); HEMOGLOBIN 13.1 G/DL (14.2-18.0); MEAN CORPUSCULAR VOLUME 81 FL (80-99); NEUTROPHILS % (AUTO) 70.2 % (45.0-75.0); PLATELET COUNT 207 K/UL (150-450); RED BLOOD COUNT 5.25 M/UL (4.70-6.10); RED CELL DISTRIBUTION WIDTH 17.5 % (11.6-14.8); WHITE BLOOD COUNT 10.5 K/UL (4.8-10.8)
--- NOTE | 2018-11-28 10:10 | NUR ---
CASE MANAGEMENT:REVIEW 11/28/18 SI: BILATERAL PULMONARY EMBOLISM. COPD T 97.2 HR 89 RR 21 B/P 128/72 SATS 98% ON RA HGB 13.1 IS: PREDNISONE 30MG PO QD PROTONIX PO BID ELIQUIS PO BID DUONEB HHN Q4HRS RTC IVF@50 mL/HR : TELEMETRY STATUS DCP: FROM HOME
--- NOTE | 2018-11-28 10:13 | NUR ---
INSURANCE REVIEWS FAXED TO [employer]: BR[facility] #[phone] [id number] FAX#[phone] REVIEWS/CLINICALS
[2018-11-28] MEDS ORDERED: D5 1/2NS 1000ml IV ONE (15:55)
--- NOTE | 2018-11-28 18:20 | Pulmonolgy Critical Care Note ---
Critical Care - Asmt/Plan Assessment/Plan: Pulmonary Critical Care Progress Note HPI Patient is a 57 year old man with a past medical history of COPD, recently diagnosed left lower extremity DVT - not complaint on Coumadin. Patient uses a steroid inhaler daily, he recently lost his inhaler. He has been feeling short of breath for the last 1-2 days Patient denies cough, hemoptysis, fever. Denies any nausea vomiting diarrhea chills. No other complaints are noted. No shortness of breath Noted to have a Pulmonary Embolism on CTA in the ED, no focal infiltrates on CXR. Denies SOB, O2 being weaned, RA PaO2 adequate on RA Echo: LVEF 60%, PAP 12 Allergies: PENICILLINS Past Medical History: DM, HTN, asthma, COPD, Hyperthyroidism, DVT, CVA, Abdominal surgery 2013 All Other Systems: negative except mentioned in HPI LESS sob Physical Exam Vital Signs Noted General Appearance: alert, mild distress Head: normocephalic, atraumatic Eyes: bilateral eye normal inspection ENT: normal ENT inspection, hearing grossly normal, normal voice Neck: normal inspection, full range of motion, supple, no bony tend Respiratory: respiratory distress, decreased breath sounds, occasional wheezing Cardiovascular: no edema, tachycardia, HS1, HS2 normal Gastrointestinal: normal inspection, normal bowel sounds, non tender, soft, no guarding, no hernia Musculoskeletal: normal inspection, back normal, normal range of motion Neurologic: normal inspection, alert, responsive Skin: no rash, no edema Impression: Bilateral Pulmonary Embolism Hypoxic Respiratory failure, acute Chronic Obstructive Pulmonary Disease exacerbation Left Upper Lobe 9mm possibly inflammatory Pulmonary Nodule Diabetes Hypertension history Hyperthyroidism history Plan: Eliiquis 5MG bid HHN Solumedrol - Wean as tolerated O2 PRN Monitor labs PPX ISS PRN Labs Noted EKG: Rate: normal Rhythm: NSR ST Segments: no acute changes Chest XR: No acute disease CT Chest : Positive pulmonary embolism bilaterally, R>L, possible 9mm inflammatory nodule TRAVIS - will need 3 month follow up. Critical Care - Objective Last 24 Hour Vital Signs Date Time Temp Pulse Resp B/P (MAP) Pulse Ox O2 Delivery O2 Flow Rate FiO2 11/28/18 16:00 97.0 76 22 122/84 (97) 98 11/28/18 16:00 78 11/28/18 14:26 75 18 96 11/28/18 12:00 74 11/28/18 12:00 97.9 76 21 109/77 (88) 98 11/28/18 08:00 97.2 89 21 128/72 (90) 98 11/28/18 08:00 85 11/28/18 07:56 92 18 98 Room Air 11/28/18 07:55 96 Room Air 11/28/18 07:50 98.4 81 18 105/65 (78) 98 11/28/18 07:49 Room Air 11/28/18 07:44 83 20 96 11/28/18 04:00 72 11/28/18 04:00 98.4 81 18 105/65 (78) 98 11/28/18 00:25 68 18 99 Room Air 11/28/18 00:15 64 18 95 11/28/18 00:00 90 11/28/18 00:00 97.5 93 20 119/77 (91) 95 11/27/18 21:00 Room Air 11/27/18 20:00 83 11/27/18 20:00 97.3 89 20 108/75 (86) 97 11/27/18 19:51 76 18 99 Room Air 11/27/18 19:45 94 Room Air 11/27/18 19:40 83 20 94 Accucheck: 147 Critical Care - Subjective ROS Limited/Unobtainable: No FI02: 28 Vent Support Breath Rate: 12 Vent Support Mode: BiLevel Sputum Amount: None I&O: Intake and Output 11/27/18 11/28/18 19:00 07:00 Intake Total 50 ml 600 ml Output Total 2400 ml 600 ml Balance -2350 ml 0 ml IV Total 50 ml 600 ml Output Urine Total 2400 ml 600 ml Suman Wagner MD Nov 28, 2018 18:20
--- NOTE | 2018-11-28 19:30 | NUR ---
NURSE NOTES: Received patient from Ishan JARRETT. Patient in bed, on room air, no signs of respiratory distress. Denies pain or SOB. Bed in low position, locked, call light within reach.
--- NOTE | 2018-11-28 21:00 | NUR ---
NURSE NOTES: Patient refused to have insulin. Informed patient that his blood sugar is over 150. Patient refused insulin.
--- NOTE | 2018-11-28 21:12 | General Progress Note ---
Assessment/Plan Problem List: (1) Asthma ICD Codes: J45.909 - Unspecified asthma, uncomplicated SNOMED: 940935315 (2) Asthma attack ICD Codes: J45.901 - Unspecified asthma with (acute) exacerbation SNOMED: 298945981 (3) Dyspnea ICD Codes: R06.00 - Dyspnea, unspecified SNOMED: 661573227 (4) Pulmonary embolism ICD Codes: I26.99 - Other pulmonary embolism without acute cor pulmonale SNOMED: 85769463 (5) Respiratory failure, acute ICD Codes: J96.00 - Acute respiratory failure, unspecified whether with hypoxia or hypercapnia SNOMED: 82669141 (6) COPD exacerbation ICD Codes: J44.1 - Chronic obstructive pulmonary disease with (acute) exacerbation SNOMED: 304476707 (7) Respiratory distress ICD Codes: R06.03 - Acute respiratory distress SNOMED: 981972188 Status: progressing Assessment/Plan: copd exacerbation is improving dvt and PE ANTICOGULANT PER HEME/ONC reviewed chart and labs no bleeding afebrile continue breathing treatment Subjective ROS Limited/Unobtainable: Yes Allergies: Coded Allergies: PENICILLINS (Verified Allergy, Unknown, 11/24/18) Objective Last 24 Hour Vital Signs Date Time Temp Pulse Resp B/P (MAP) Pulse Ox O2 Delivery O2 Flow Rate FiO2 11/28/18 20:00 96.1 77 24 125/85 (98) 97 11/28/18 19:55 97 Room Air 21 11/28/18 19:54 92 18 98 Room Air 21 72 18 97 11/28/18 16:00 97.0 76 22 122/84 (97) 98 11/28/18 16:00 78 11/28/18 14:26 75 18 96 11/28/18 12:00 74 11/28/18 12:00 97.9 76 21 109/77 (88) 98 11/28/18 08:00 97.2 89 21 128/72 (90) 98 11/28/18 08:00 85 11/28/18 07:56 92 18 98 Room Air 11/28/18 07:55 96 Room Air 11/28/18 07:50 98.4 81 18 105/65 (78) 98 11/28/18 07:49 Room Air 11/28/18 07:44 83 20 96 11/28/18 04:00 72 11/28/18 04:00 98.4 81 18 105/65 (78) 98 11/28/18 00:25 68 18 99 Room Air 11/28/18 00:15 64 18 95 11/28/18 00:00 90 11/28/18 00:00 97.5 93 20 119/77 (91) 95 Intake and Output 11/27/18 11/28/18 19:00 07:00 Intake Total 50 ml 600 ml Output Total 2400 ml 600 ml Balance -2350 ml 0 ml IV Total 50 ml 600 ml Output Urine Total 2400 ml 600 ml Laboratory Tests 11/28/18 09:20: White Blood Count 10.5, Red Blood Count 5.25, Hemoglobin 13.1L, Hematocrit 42.3 , Mean Corpuscular Volume 81, Mean Corpuscular Hemoglobin 25.0L, Mean Corpuscular Hemoglobin Concent 31.0L, Red Cell Distribution Width 17.5H, Platelet Count 207, Mean Platelet Volume 6.1L, Neutrophils (%) (Auto) 70.2, Lymphocytes (%) (Auto) 21.0, Monocytes (%) (Auto) 7.0, Eosinophils (%) (Auto) 1.5, Basophils (%) (Auto) 0.4 Height (Feet): 6 Height (Inches): 2.00 Weight (Pounds): 168 Cardiovascular: normal rate Respiratory/Chest: lungs clear Ti Goss MD Nov 28, 2018 21:12
[2018-11-29] VITALS (7 sets, daily range): BP systolic 105–116; BP diastolic 61–79
[2018-11-29] MEDS: Albuterol/Ipratropium 3ml neb HHN SCH ×4 (02:36→14:45)
[2018-11-29] MEDS: NovoLOG Insulin Flexpen SUBQ SCH ×4 (05:58→20:33)
--- NOTE | 2018-11-29 07:34 | NUR ---
HAND-OFF: Report given to Ishan JARRETT. Plan of care endorsed.
--- NOTE | 2018-11-29 07:40 | NUR ---
NURSE NOTES: Got benjamín Pelletier RN. Patient found aox4 with calm, cooperative affect. CO hunger despite having finished 100% of breakfast tray--got patient bina fong from cafe. Bed in low, locked position and call zack and alesha in reach. Contacting U/S to learn timing of venous duplex today. No CO leg pain. WCTM and continue with plan of care. Addendum: 11/29/18 at 0830 by Minesh Beltrán RN Spoke with Greg (/S) for venous doppler. Greg stated he would be here to do DVT scan this morning/early afternoon (DAVY) Addendum: 11/29/18 at 0946 by Minesh Beltrán RN 945 am: Called Dr Wagner at conclusion of venous doppler with result of positive bilat thighs for clots . Dr Wagner stated no new orders, continue on BID eliquis adn patient is okay to walk as tolerated.
[2018-11-29] MEDS: Docusate 100mg cap ORAL SCH ×3 (09:00→17:55)
[2018-11-29] MEDS: Eliquis 5mg tablet ORAL SCH ×2 (09:37→17:53)
--- NOTE | 2018-11-29 09:57 | Hematology/Onc Progress Note ---
Assessment/Plan Assessment/Plan Assessment and Recs: # Bilateral pulmonary emboli in the setting of recent DVT bilateral and NONCOMPLIANCE --> initially admitted to the icu, and started on hep gtt which have now been discontinued --> before was on coumadin but noncomplaint --> okay to transition to eliquis po which has been started --> recommend at least 3 mo of anticoag --> DVT noted again during this admission # DVT hx at this time, given noncompliance --> needs to take at minimum 3 mo anticoag and then reaccess --> Pulm is aware # 9mm masslike opacity in the left upper lobe. Adjacency to bronchiectatic bronchus suggests this is most likely postinflammatory change, but the possibility of a mass lesion should also be considered. --> PET/CT imaging or 3 month follow-up conventional CT is recommended --> pulm aware # Leukocytosis is due to steroids --> taper per pulm--> wbc trend 14-->10 # Respiratory failure, acute in setting of smoker --> as per pulm, bipap, better # COPD exacerbation --> steriods as needed breathing rx # Dvt ppx eliquis for now The timing of this note does not necessarily reflect the time of the patient was seen. Greatly appreciate consultation. Subjective Constitutional: Denies: no symptoms, chills, fever, malaise, weakness, other HEENT: Denies: no symptoms, eye pain, blurred vision, tearing, double vision, ear pain, ear discharge, nose pain, nose congestion, throat pain, throat swelling, mouth pain, mouth swelling, other Respiratory: Denies: no symptoms, cough, shortness of breath, SOB with excertion, SOB at rest, sputum, wheezing, other Gastrointestinal/Abdominal: Denies: no symptoms, abdomen distended, abdominal pain, black stools, tarry stools, blood in stool, constipated, diarrhea, difficulty swallowing, nausea, poor appetite, poor fluid intake, rectal bleeding , vomiting, other Neurologic/Psychiatric: Denies: no symptoms, anxiety, depressed, emotional problems, headache, numbness, paresthesia, pre-existing deficit, seizure, tingling, tremors, weakness, other Endocrine: Denies: no symptoms, excessive sweating, flushing, intolerance to cold, intolerance to heat, increased hunger, increased thirst, increased urine, unexplained weight gain, unexplained weight loss, other Hematologic/Lymphatic: Denies: no symptoms, anemia, easy bleeding, easy bruising, adenopathy, other Allergies: Coded Allergies: PENICILLINS (Verified Allergy, Unknown, 11/24/18) Subjective 11/27: no events to report, on 2l nc, no bleeding, on anticoag 11/29: positive for bilateral clots in the lower ext, on anticoag Objective Objective Current Medications Medications (Trade) Dose Ordered Sig/Darya Route PRN Reason Start Time Stop Time Status Last Admin Dose Admin Acetaminophen (Tylenol) 650 mg Q6H PRN ORAL Fever(T>100.5F)/Pain 11/25/18 18:30 12/24/18 18:29 11/26/18 08:40 Albuterol/ Ipratropium (Albuterol/ Ipratropium) 3 ml Q4HRT HHN 11/25/18 19:00 11/29/18 15:59 11/28/18 23:11 Apixaban (Eliquis) 5 mg BID ORAL 11/26/18 09:00 12/25/18 10:59 11/29/18 09:37 Dextrose (Dextrose 50%) 25 ml Q30M PRN IV Hypoglycemia 11/25/18 18:30 12/24/18 15:59 Dextrose (Dextrose 50%) 50 ml Q30M PRN IV Hypoglycemia 11/25/18 18:30 12/24/18 15:59 Docusate Sodium (Colace) 100 mg TID ORAL 11/26/18 18:00 12/24/18 20:59 Insulin Aspart (NovoLOG) BEFORE MEALS AND HS SUBQ 11/25/18 21:00 12/24/18 16:29 Ondansetron HCl (Zofran) 4 mg Q4H PRN IVP Nausea & Vomiting 11/25/18 18:30 12/24/18 18:29 Pantoprazole (Protonix) 40 mg EVERY 12 HOURS ORAL 11/26/18 21:00 12/24/18 15:59 11/29/18 09:37 Prednisone (predniSONE) 30 mg DAILY ORAL 11/27/18 09:00 12/27/18 08:59 11/29/18 09:37 Last 24 Hour Vital Signs Date Time Temp Pulse Resp B/P (MAP) Pulse Ox O2 Delivery O2 Flow Rate FiO2 11/29/18 08:23 Room Air 11/29/18 08:00 83 11/29/18 08:00 97.3 72 21 108/61 (77) 99 11/29/18 06:41 98 Room Air 21 11/29/18 04:00 97.7 64 20 112/76 (88) 98 11/29/18 04:00 75 11/29/18 00:00 97.3 96 28 116/74 (88) 95 11/29/18 00:00 96 11/28/18 23:12 78 18 99 Room Air 21 76 18 97 11/28/18 21:00 Room Air 11/28/18 20:00 72 11/28/18 20:00 96.1 77 24 125/85 (98) 97 11/28/18 19:55 97 Room Air 21 11/28/18 19:54 92 18 98 Room Air 21 72 18 97 11/28/18 16:00 97.0 76 22 122/84 (97) 98 11/28/18 16:00 78 11/28/18 14:26 75 18 96 11/28/18 12:00 74 11/28/18 12:00 97.9 76 21 109/77 (88) 98 11/28/18 08:00 97.2 89 21 128/72 (90) 98 11/28/18 08:00 85 11/28/18 07:56 92 18 98 Room Air 11/28/18 07:55 96 Room Air 11/28/18 07:50 98.4 81 18 105/65 (78) 98 11/28/18 07:49 Room Air 11/28/18 07:44 83 20 96 11/28/18 04:00 72 11/28/18 04:00 98.4 81 18 105/65 (78) 98 11/28/18 00:25 68 18 99 Room Air 11/28/18 00:15 64 18 95 11/28/18 00:00 90 11/28/18 00:00 97.5 93 20 119/77 (91) 95 11/27/18 21:00 Room Air 11/27/18 20:00 83 11/27/18 20:00 97.3 89 20 108/75 (86) 97 11/27/18 19:51 76 18 99 Room Air 11/27/18 19:45 94 Room Air 11/27/18 19:40 83 20 94 11/27/18 16:00 69 11/27/18 15:50 97.2 74 18 113/74 (87) 95 11/27/18 12:00 75 11/27/18 12:00 98.6 83 18 102/63 (76) 97 Intake and Output 11/28/18 11/29/18 19:00 07:00 Intake Total 750 ml 360 ml Output Total 1700 ml 1850 ml Balance -950 ml -1490 ml Intake Oral 750 ml 360 ml Output Urine Total 1700 ml 1850 ml # Voids 2 3 # Bowel Movements 1 Labs Test 11/26/18 14:18 11/26/18 15:45 11/27/18 09:10 11/28/18 09:20 Arterial Blood pH 7.440 (7.350-7.450) Arterial Blood Partial Pressure CO2 40.0 mmHg (35.0-45.0) Arterial Blood Partial Pressure O2 67.0 mmHg (75.0-100.0) Arterial Blood HCO3 26.6 mmol/L (22.0-26.0) Arterial Blood Oxygen Saturation 93.1 % (95-100) Arterial Blood Base Excess 2.3 (-2-2) Ney Test Positive Urine Color Pale yellow Urine Appearance Clear Urine pH 6.5 (4.5-8.0) Urine Specific Dugger 1.010 (1.005-1.035) Urine Protein Negative (NEGATIVE) Urine Glucose (UA) Negative (NEGATIVE) Urine Ketones 1+ (NEGATIVE) Urine Blood Negative (NEGATIVE) Urine Nitrite Negative (NEGATIVE) Urine Bilirubin Negative (NEGATIVE) Urine Urobilinogen Normal MG/DL (0.0-1.0) Urine Leukocyte Esterase Negative (NEGATIVE) Urine RBC 0-2 /HPF (0 - 0) Urine WBC 0-2 /HPF (0 - 0) Urine Squamous Epithelial Cells None /LPF (NONE/OCC) Urine Bacteria Few /HPF (NONE) White Blood Count 8.7 K/UL (4.8-10.8) 10.5 K/UL (4.8-10.8) Red Blood Count 5.10 M/UL (4.70-6.10) 5.25 M/UL (4.70-6.10) Hemoglobin 12.6 G/DL (14.2-18.0) 13.1 G/DL (14.2-18.0) Hematocrit 40.7 % (42.0-52.0) 42.3 % (42.0-52.0) Mean Corpuscular Volume 80 FL (80-99) 81 FL (80-99) Mean Corpuscular Hemoglobin 24.7 PG (27.0-31.0) 25.0 PG (27.0-31.0) Mean Corpuscular Hemoglobin Concent 30.9 G/DL (32.0-36.0) 31.0 G/DL (32.0-36.0) Red Cell Distribution Width 17.5 % (11.6-14.8) 17.5 % (11.6-14.8) Platelet Count 192 K/UL (150-450) 207 K/UL (150-450) Mean Platelet Volume 6.0 FL (6.5-10.1) 6.1 FL (6.5-10.1) Neutrophils (%) (Auto) 67.8 % (45.0-75.0) 70.2 % (45.0-75.0) Lymphocytes (%) (Auto) 22.3 % (20.0-45.0) 21.0 % (20.0-45.0) Monocytes (%) (Auto) 6.9 % (1.0-10.0) 7.0 % (1.0-10.0) Eosinophils (%) (Auto) 2.2 % (0.0-3.0) 1.5 % (0.0-3.0) Basophils (%) (Auto) 0.8 % (0.0-2.0) 0.4 % (0.0-2.0) Sodium Level 137 MMOL/L (136-145) Potassium Level 3.7 MMOL/L (3.5-5.1) Chloride Level 102 MMOL/L (98-107) Carbon Dioxide Level 30 MMOL/L (21-32) Anion Gap 5 mmol/L (5-15) Blood Urea Nitrogen 22 mg/dL (7-18) Creatinine 0.9 MG/DL (0.55-1.30) Estimat Glomerular Filtration Rate > 60 mL/min (>60) Glucose Level 101 MG/DL (74-106) Hemoglobin A1c 6.8 % (4.3-6.0) Uric Acid 4.6 MG/DL (2.6-7.2) Calcium Level 8.3 MG/DL (8.5-10.1) Phosphorus Level 3.1 MG/DL (2.5-4.9) Magnesium Level 1.8 MG/DL (1.8-2.4) Iron Level 113 ug/dL (50-175) Total Iron Binding Capacity 259 ug/dL (250-450) Percent Iron Saturation 44 % (15-50) Unsaturated Iron Binding 146 ug/dL (112-346) Ferritin 81 NG/ML (8-388) Total Bilirubin 0.4 MG/DL (0.2-1.0) Gamma Glutamyl Transpeptidase 31 U/L (5-85) Aspartate Amino Transf (AST/SGOT) 18 U/L (15-37) Alanine Aminotransferase (ALT/SGPT) 31 U/L (12-78) Alkaline Phosphatase 100 U/L (46-116) Total Creatine Kinase 32 U/L (26-308) C-Reactive Protein, Quantitative < 0.4 mg/dL (0.00-0.90) Pro-B-Type Natriuretic Peptide 137 pg/mL (0-125) Total Protein 5.7 G/DL (6.4-8.2) Albumin 2.6 G/DL (3.4-5.0) Globulin 3.1 g/dL Albumin/Globulin Ratio 0.8 (1.0-2.7) Triglycerides Level 73 MG/DL (30-150) Cholesterol Level 206 MG/DL (< 200) LDL Cholesterol 91 mg/dL (<100) HDL Cholesterol 97 MG/DL (40-60) Cholesterol/HDL Ratio 2.1 (3.3-4.4) Vitamin B12 Level 466 PG/ML (193-986) Folate 10.0 NG/ML (8.6-58.9) Thyroid Stimulating Hormone (TSH) 0.106 uiU/mL (0.358-3.740) Free Thyroxine 1.16 NG/DL (0.76-1.46) Free Triiodothyronine 1.7 pg/mL (2.3-4.2) Height (Feet): 6 Height (Inches): 2.00 Weight (Pounds): 164 Objective Physical Exam Vitals: reviewed General Appearance: NAD HEENT: normocephalic, atraumatic Resp: normal breath sounds bilaterally CV: normal peripheral pulses, normal rate Abdomen: normal bowel sounds, soft, nonten Ext: no cce Edilberto Devries MD Nov 29, 2018 09:57
--- NOTE | 2018-11-29 10:19 | Diagnostic Imaging Report ---
EXAM: US Duplex Bilateral Lower Extremity Veins CLINICAL HISTORY: DVT TECHNIQUE: Real-time duplex ultrasound scan of the bilateral lower extremity veins integrating B-mode two-dimensional vascular structure, Doppler spectral analysis, color flow Doppler imaging and compression. COMPARISON: No relevant prior studies available. FINDINGS: Right lower extremity: Thrombus identified in the right superficial femoral vein. No thrombus in the common femoral or popliteal vein. Left lower extremity: Thrombus identified in the femoral to the popliteal vein. IMPRESSION: Study is positive for bilateral DVTs <MYCVCSECTION> Critical Value [employer] 11 29 18 10:23 Call Doctor Regarding Other, called Dr Wagner on 11 29 10: 23 (-07:00)
--- NOTE | 2018-11-29 14:32 | Pulmonolgy Critical Care Note ---
Critical Care - Asmt/Plan Assessment/Plan: Pulmonary Critical Care Progress Note HPI Patient is a 57 year old man with a past medical history of COPD, recently diagnosed left lower extremity DVT - not complaint on Coumadin. Patient uses a steroid inhaler daily, he recently lost his inhaler. He has been feeling short of breath for the last 1-2 days Patient denies cough, hemoptysis, fever. Denies any nausea vomiting diarrhea chills. No other complaints are noted. No shortness of breath Noted to have a Pulmonary Embolism on CTA in the ED, no focal infiltrates on CXR. LE dupplex bilateral proximal DVT Denies SOB, O2 being weaned, RA PaO2 adequate on RA Echo: LVEF 60%, PAP 12 Allergies: PENICILLINS Past Medical History: DM, HTN, asthma, COPD, Hyperthyroidism, DVT, CVA, Abdominal surgery 2013 All Other Systems: negative except mentioned in HPI LESS sob Physical Exam Vital Signs Noted General Appearance: alert, mild distress Head: normocephalic, atraumatic Eyes: bilateral eye normal inspection ENT: normal ENT inspection, hearing grossly normal, normal voice Neck: normal inspection, full range of motion, supple, no bony tend Respiratory: respiratory distress, decreased breath sounds, occasional wheezing Cardiovascular: no edema, tachycardia, HS1, HS2 normal Gastrointestinal: normal inspection, normal bowel sounds, non tender, soft, no guarding, no hernia Musculoskeletal: normal inspection, back normal, normal range of motion Neurologic: normal inspection, alert, responsive Skin: no rash, no edema Impression: Bilateral Pulmonary Embolism Bilateral proximal DVT Hypoxic Respiratory failure, acute Chronic Obstructive Pulmonary Disease exacerbation Left Upper Lobe 9mm possibly inflammatory Pulmonary Nodule Diabetes Hypertension history Hyperthyroidism history Plan: Eliiquis 5MG bid HHN Solumedrol - Wean as tolerated O2 PRN Monitor labs PPX ISS PRN [address] chest for Pulmonary Nodule Labs Noted EKG: Rate: normal Rhythm: NSR ST Segments: no acute changes Chest XR: No acute disease CT Chest : Positive pulmonary embolism bilaterally, R>L, possible 9mm inflammatory nodule TRAVIS - will need 3 month follow up. LE dupplex: bilateral proximal DVT Critical Care - Objective Last 24 Hour Vital Signs Date Time Temp Pulse Resp B/P (MAP) Pulse Ox O2 Delivery O2 Flow Rate FiO2 11/29/18 12:00 74 11/29/18 12:00 97.0 72 23 105/74 (84) 96 11/29/18 08:23 Room Air 11/29/18 08:00 83 11/29/18 08:00 97.3 72 21 108/61 (77) 99 11/29/18 06:41 98 Room Air 21 11/29/18 04:00 97.7 64 20 112/76 (88) 98 11/29/18 04:00 75 11/29/18 00:00 97.3 96 28 116/74 (88) 95 11/29/18 00:00 96 11/28/18 23:12 78 18 99 Room Air 21 76 18 97 11/28/18 21:00 Room Air 11/28/18 20:00 72 11/28/18 20:00 96.1 77 24 125/85 (98) 97 11/28/18 19:55 97 Room Air 21 11/28/18 19:54 92 18 98 Room Air 21 72 18 97 11/28/18 16:00 97.0 76 22 122/84 (97) 98 11/28/18 16:00 78 Accucheck: 93 Critical Care - Subjective ROS Limited/Unobtainable: No FI02: 21 Vent Support Breath Rate: 12 Vent Support Mode: BiLevel Sputum Amount: None I&O: Intake and Output 11/28/18 11/29/18 18:59 06:59 Intake Total 800 ml 360 ml Output Total 1700 ml 1850 ml Balance -900 ml -1490 ml Intake Oral 750 ml 360 ml IV Total 50 ml Output Urine Total 1700 ml 1850 ml # Voids 2 3 # Bowel Movements 1 Suman Wagner MD Nov 29, 2018 14:32
--- NOTE | 2018-11-29 19:58 | NUR ---
NURSE NOTES: Received pt from LUIZA Olmstead. Pt awake, alert, and talkative. Bed in lowest position. Call light within reach. Will continue to monitor.
--- NOTE | 2018-11-29 20:13 | General Progress Note ---
Assessment/Plan Problem List: (1) Asthma ICD Codes: J45.909 - Unspecified asthma, uncomplicated SNOMED: 452358138 (2) Asthma attack ICD Codes: J45.901 - Unspecified asthma with (acute) exacerbation SNOMED: 624682039 (3) Dyspnea ICD Codes: R06.00 - Dyspnea, unspecified SNOMED: 481332195 (4) Pulmonary embolism ICD Codes: I26.99 - Other pulmonary embolism without acute cor pulmonale SNOMED: 80661878 (5) Respiratory failure, acute ICD Codes: J96.00 - Acute respiratory failure, unspecified whether with hypoxia or hypercapnia SNOMED: 95376638 (6) COPD exacerbation ICD Codes: J44.1 - Chronic obstructive pulmonary disease with (acute) exacerbation SNOMED: 924096334 (7) Respiratory distress ICD Codes: R06.03 - Acute respiratory distress SNOMED: 431062046 Status: progressing Assessment/Plan: copd exacerbation is improving dvt and PE ANTICOGULANT PER HEME/ONC dc planning afebrile no sob no wheezing Subjective ROS Limited/Unobtainable: Yes Allergies: Coded Allergies: PENICILLINS (Verified Allergy, Unknown, 11/24/18) Objective Last 24 Hour Vital Signs Date Time Temp Pulse Resp B/P (MAP) Pulse Ox O2 Delivery O2 Flow Rate FiO2 11/29/18 18:00 98.0 102 23 111/70 (84) 93 11/29/18 16:00 95 11/29/18 16:00 98.0 76 23 111/70 (84) 93 11/29/18 14:46 82 18 100 Room Air 21 78 18 98 11/29/18 12:00 74 11/29/18 12:00 97.0 72 23 105/74 (84) 96 11/29/18 08:23 Room Air 11/29/18 08:00 83 11/29/18 08:00 97.3 72 21 108/61 (77) 99 11/29/18 06:41 98 Room Air 21 11/29/18 04:00 97.7 64 20 112/76 (88) 98 11/29/18 04:00 75 11/29/18 00:00 97.3 96 28 116/74 (88) 95 11/29/18 00:00 96 11/28/18 23:12 78 18 99 Room Air 21 76 18 97 11/28/18 21:00 Room Air Intake and Output 11/28/18 11/29/18 19:00 07:00 Intake Total 750 ml 360 ml Output Total 1700 ml 1850 ml Balance -950 ml -1490 ml Intake Oral 750 ml 360 ml Output Urine Total 1700 ml 1850 ml # Voids 2 3 # Bowel Movements 1 Height (Feet): 6 Height (Inches): 2.00 Weight (Pounds): 164 Cardiovascular: normal rate Respiratory/Chest: lungs clear Abdomen: soft Ti Goss MD Nov 29, 2018 20:13
[2018-11-30] VITALS: BP 136/79
[2018-11-30 04:00] VITALS: BP 116/76
[2018-11-30] MEDS: NovoLOG Insulin Flexpen SUBQ SCH ×2 (06:02→11:30)
--- NOTE | 2018-11-30 06:31 | Hematology/Onc Progress Note ---
Assessment/Plan Assessment/Plan Assessment and Recs: # Bilateral pulmonary emboli in the setting of recent DVT bilateral and NONCOMPLIANCE --> initially admitted to the icu, and started on hep gtt which have now been discontinued --> before was on coumadin but noncomplaint --> okay to transition to eliquis po which has been started --> recommend at least 3 mo of anticoag --> DVT noted again during this admission --> tolerating eliquis well at this time, dc with it # DVT hx at this time, given noncompliance --> needs to take at minimum 3 mo anticoag and then reaccess --> Pulm is aware --> on eliquis # 9mm masslike opacity in the left upper lobe. Adjacency to bronchiectatic bronchus suggests this is most likely postinflammatory change, but the possibility of a mass lesion should also be considered. --> PET/CT imaging or 3 month follow-up conventional CT is recommended --> pulm aware # Leukocytosis is due to steroids --> taper per pulm--> wbc trend 14-->10 # Respiratory failure, acute in setting of smoker --> as per pulm, bipap, better # COPD exacerbation --> steriods as needed breathing rx --> taper steriods # Dvt ppx eliquis for now The timing of this note does not necessarily reflect the time of the patient was seen. Greatly appreciate consultation. Subjective Constitutional: Denies: no symptoms, chills, fever, malaise, weakness, other HEENT: Denies: no symptoms, eye pain, blurred vision, tearing, double vision, ear pain, ear discharge, nose pain, nose congestion, throat pain, throat swelling, mouth pain, mouth swelling, other Cardiovascular: Denies: no symptoms, chest pain, edema, irregular heart rate, lightheadedness, palpitations, syncope, other Respiratory: Denies: no symptoms, cough, shortness of breath, SOB with excertion, SOB at rest, sputum, wheezing, other Gastrointestinal/Abdominal: Denies: no symptoms, abdomen distended, abdominal pain, black stools, tarry stools, blood in stool, constipated, diarrhea, difficulty swallowing, nausea, poor appetite, poor fluid intake, rectal bleeding , vomiting, other Genitourinary: Denies: no symptoms, burning, discharge, frequency, flank pain, hematuria, incontinence, pain, urgency, other Neurologic/Psychiatric: Denies: no symptoms, anxiety, depressed, emotional problems, headache, numbness, paresthesia, pre-existing deficit, seizure, tingling, tremors, weakness, other Endocrine: Denies: no symptoms, excessive sweating, flushing, intolerance to cold, intolerance to heat, increased hunger, increased thirst, increased urine, unexplained weight gain, unexplained weight loss, other Allergies: Coded Allergies: PENICILLINS (Verified Allergy, Unknown, 11/24/18) Subjective 11/27: no events to report, on 2l nc, no bleeding, on anticoag 11/29: positive for bilateral clots in the lower ext, on anticoag 11/30: remains on eliquis, no bleeding or chills, less sob Objective Objective Current Medications Medications (Trade) Dose Ordered Sig/Darya Route PRN Reason Start Time Stop Time Status Last Admin Dose Admin Acetaminophen (Tylenol) 650 mg Q6H PRN ORAL Fever(T>100.5F)/Pain 11/25/18 18:30 12/24/18 18:29 11/26/18 08:40 Apixaban (Eliquis) 5 mg BID ORAL 11/26/18 09:00 12/25/18 10:59 11/29/18 17:53 Dextrose (Dextrose 50%) 25 ml Q30M PRN IV Hypoglycemia 11/25/18 18:30 12/24/18 15:59 Dextrose (Dextrose 50%) 50 ml Q30M PRN IV Hypoglycemia 11/25/18 18:30 12/24/18 15:59 Docusate Sodium (Colace) 100 mg TID ORAL 11/26/18 18:00 12/24/18 20:59 Insulin Aspart (NovoLOG) BEFORE MEALS AND HS SUBQ 11/25/18 21:00 12/24/18 16:29 Ondansetron HCl (Zofran) 4 mg Q4H PRN IVP Nausea & Vomiting 11/25/18 18:30 12/24/18 18:29 Pantoprazole (Protonix) 40 mg EVERY 12 HOURS ORAL 11/26/18 21:00 12/24/18 15:59 11/29/18 20:32 Prednisone (predniSONE) 30 mg DAILY ORAL 11/27/18 09:00 12/27/18 08:59 11/29/18 09:37 Last 24 Hour Vital Signs Date Time Temp Pulse Resp B/P (MAP) Pulse Ox O2 Delivery O2 Flow Rate FiO2 11/30/18 04:00 73 11/30/18 04:00 97.3 79 20 116/76 (89) 96 11/30/18 00:00 78 11/30/18 00:00 97.2 82 20 136/79 (98) 96 11/29/18 21:00 Room Air 11/29/18 20:25 98 Room Air 21 11/29/18 20:00 82 11/29/18 20:00 96.8 80 20 114/79 (91) 97 11/29/18 18:00 98.0 102 23 111/70 (84) 93 11/29/18 16:00 95 11/29/18 16:00 98.0 76 23 111/70 (84) 93 11/29/18 14:46 82 18 100 Room Air 78 18 98 11/29/18 12:00 74 11/29/18 12:00 97.0 72 23 105/74 (84) 96 11/29/18 08:23 Room Air 11/29/18 08:00 83 11/29/18 08:00 97.3 72 21 108/61 (77) 99 11/29/18 06:41 98 Room Air 21 11/29/18 04:00 97.7 64 20 112/76 (88) 98 11/29/18 04:00 75 11/29/18 00:00 97.3 96 28 116/74 (88) 95 11/29/18 00:00 96 11/28/18 23:12 78 18 99 Room Air 21 76 18 97 11/28/18 21:00 Room Air 11/28/18 20:00 72 11/28/18 20:00 96.1 77 24 125/85 (98) 97 11/28/18 19:55 97 Room Air 21 11/28/18 19:54 92 18 98 Room Air 21 72 18 97 11/28/18 16:00 97.0 76 22 122/84 (97) 98 11/28/18 16:00 78 11/28/18 14:26 75 18 96 11/28/18 12:00 74 11/28/18 12:00 97.9 76 21 109/77 (88) 98 11/28/18 08:00 97.2 89 21 128/72 (90) 98 11/28/18 08:00 85 11/28/18 07:56 92 18 98 Room Air 11/28/18 07:55 96 Room Air 11/28/18 07:50 98.4 81 18 105/65 (78) 98 11/28/18 07:49 Room Air 11/28/18 07:44 83 20 96 Intake and Output 11/29/18 11/30/18 19:00 07:00 Intake Total 560 ml Output Total 600 ml Balance -40 ml Intake Oral 360 ml IV Total 100 ml Other 100 ml Output Urine Total 600 ml # Voids 1 2 # Bowel Movements 1 1 Labs Test 11/27/18 09:10 11/28/18 09:20 White Blood Count 8.7 K/UL (4.8-10.8) 10.5 K/UL (4.8-10.8) Red Blood Count 5.10 M/UL (4.70-6.10) 5.25 M/UL (4.70-6.10) Hemoglobin 12.6 G/DL (14.2-18.0) 13.1 G/DL (14.2-18.0) Hematocrit 40.7 % (42.0-52.0) 42.3 % (42.0-52.0) Mean Corpuscular Volume 80 FL (80-99) 81 FL (80-99) Mean Corpuscular Hemoglobin 24.7 PG (27.0-31.0) 25.0 PG (27.0-31.0) Mean Corpuscular Hemoglobin Concent 30.9 G/DL (32.0-36.0) 31.0 G/DL (32.0-36.0) Red Cell Distribution Width 17.5 % (11.6-14.8) 17.5 % (11.6-14.8) Platelet Count 192 K/UL (150-450) 207 K/UL (150-450) Mean Platelet Volume 6.0 FL (6.5-10.1) 6.1 FL (6.5-10.1) Neutrophils (%) (Auto) 67.8 % (45.0-75.0) 70.2 % (45.0-75.0) Lymphocytes (%) (Auto) 22.3 % (20.0-45.0) 21.0 % (20.0-45.0) Monocytes (%) (Auto) 6.9 % (1.0-10.0) 7.0 % (1.0-10.0) Eosinophils (%) (Auto) 2.2 % (0.0-3.0) 1.5 % (0.0-3.0) Basophils (%) (Auto) 0.8 % (0.0-2.0) 0.4 % (0.0-2.0) Sodium Level 137 MMOL/L (136-145) Potassium Level 3.7 MMOL/L (3.5-5.1) Chloride Level 102 MMOL/L (98-107) Carbon Dioxide Level 30 MMOL/L (21-32) Anion Gap 5 mmol/L (5-15) Blood Urea Nitrogen 22 mg/dL (7-18) Creatinine 0.9 MG/DL (0.55-1.30) Estimat Glomerular Filtration Rate > 60 mL/min (>60) Glucose Level 101 MG/DL (74-106) Hemoglobin A1c 6.8 % (4.3-6.0) Uric Acid 4.6 MG/DL (2.6-7.2) Calcium Level 8.3 MG/DL (8.5-10.1) Phosphorus Level 3.1 MG/DL (2.5-4.9) Magnesium Level 1.8 MG/DL (1.8-2.4) Iron Level 113 ug/dL (50-175) Total Iron Binding Capacity 259 ug/dL (250-450) Percent Iron Saturation 44 % (15-50) Unsaturated Iron Binding 146 ug/dL (112-346) Ferritin 81 NG/ML (8-388) Total Bilirubin 0.4 MG/DL (0.2-1.0) Gamma Glutamyl Transpeptidase 31 U/L (5-85) Aspartate Amino Transf (AST/SGOT) 18 U/L (15-37) Alanine Aminotransferase (ALT/SGPT) 31 U/L (12-78) Alkaline Phosphatase 100 U/L (46-116) Total Creatine Kinase 32 U/L (26-308) C-Reactive Protein, Quantitative < 0.4 mg/dL (0.00-0.90) Pro-B-Type Natriuretic Peptide 137 pg/mL (0-125) Total Protein 5.7 G/DL (6.4-8.2) Albumin 2.6 G/DL (3.4-5.0) Globulin 3.1 g/dL Albumin/Globulin Ratio 0.8 (1.0-2.7) Triglycerides Level 73 MG/DL (30-150) Cholesterol Level 206 MG/DL (< 200) LDL Cholesterol 91 mg/dL (<100) HDL Cholesterol 97 MG/DL (40-60) Cholesterol/HDL Ratio 2.1 (3.3-4.4) Vitamin B12 Level 466 PG/ML (193-986) Folate 10.0 NG/ML (8.6-58.9) Thyroid Stimulating Hormone (TSH) 0.106 uiU/mL (0.358-3.740) Free Thyroxine 1.16 NG/DL (0.76-1.46) Free Triiodothyronine 1.7 pg/mL (2.3-4.2) Height (Feet): 6 Height (Inches): 2.00 Weight (Pounds): 161 Objective Physical Exam Vitals: reviewed General Appearance: NAD HEENT: normocephalic, atraumatic Resp: normal breath sounds bilaterally CV: normal peripheral pulses, normal rate Abdomen: normal bowel sounds, soft, nonten Ext: no cce Edilberto Devries MD Nov 30, 2018 06:31
--- NOTE | 2018-11-30 07:30 | NUR ---
HAND-OFF: Report given to LUIZA Guaman. Pt stable.
--- NOTE | 2018-11-30 07:31 | NUR ---
NURSE NOTES:Received pt from LUIZA Trimble in stable condition w/ no cardiopulmonary distress noted. Pt is awake in bed, eating breakfast, AAOx4, SR on RA, no skin alterations noted. MADISON 20g IV and RH 22g IV noted. Bed in lowest position w/alarm on, call light within reach, side rails up x2, will continue to monitor.
[2018-11-30 08:00] VITALS: BP 129/84
[2018-11-30] MEDS: Docusate 100mg cap ORAL SCH ×2 (08:17→12:15)
[2018-11-30] MEDS: Eliquis 5mg tablet ORAL SCH (08:20)
[2018-11-30 12:00] VITALS: BP 119/77
--- NOTE | 2018-11-30 12:26 | NUR ---
CASE MANAGEMENT:REVIEW 11/29/18 SI: BILATERAL PULMONARY EMBOLISM. COPD 97.0 72 23 105/74 96% ON RA IS: PREDNISONE 30MG PO QD PROTONIX PO BID ELIQUIS PO BID DUONEB HHN Q4HRS RTC IVF@50 mL/HR : TELEMETRY STATUS 11/30/18 DISCHARGE HOME
[2018-11-30] MEDS ORDERED: ELIQUIS5 MG PO (13:01)
[2018-11-30] MEDS ORDERED: SYMBICORT 16010.2 G1 IH (13:03)
--- NOTE | 2018-11-30 13:08 | NUR ---
NURSE NOTES: removed Telebox from pat at 1145.. requested Discharge.
--- NOTE | 2018-11-30 13:20 | Nephrology Progress Note ---
Assessment/Plan Problem List: (1) Pulmonary embolism (2) Azotemia (3) HTN (hypertension) (4) Hyperthyroidism (5) Elevated hemoglobin A1c Assessment currently being treated for pulmonary embolism Mild Azotemia DM, HTN, BP stable asthma, COPD Left Upper Lobe 9mm possibly inflammatory Pulmonary Nodule Hyperthyroidism history Plan last labs 11/27 Slow hydrate TFTs noted monitor lytes and renal parameters per orders per pulmonary mgt Subjective ROS Limited/Unobtainable: No Constitutional: Reports: malaise Objective Objective Last 24 Hour Vital Signs Date Time Temp Pulse Resp B/P (MAP) Pulse Ox O2 Delivery O2 Flow Rate FiO2 11/30/18 09:00 Room Air 11/30/18 08:00 97.5 78 18 129/84 (99) 97 11/30/18 08:00 76 11/30/18 04:00 73 11/30/18 04:00 97.3 79 20 116/76 (89) 96 11/30/18 00:00 78 11/30/18 00:00 97.2 82 20 136/79 (98) 96 11/29/18 21:00 Room Air 11/29/18 20:25 98 Room Air 21 11/29/18 20:00 82 11/29/18 20:00 96.8 80 20 114/79 (91) 97 11/29/18 18:00 98.0 102 23 111/70 (84) 93 11/29/18 16:00 95 11/29/18 16:00 98.0 76 23 111/70 (84) 93 11/29/18 14:46 82 18 100 Room Air 21 78 18 98 Intake and Output 11/29/18 11/30/18 19:00 07:00 Intake Total 560 ml Output Total 600 ml Balance -40 ml Intake Oral 360 ml IV Total 100 ml Other 100 ml Output Urine Total 600 ml # Voids 1 2 # Bowel Movements 1 1 Current Medications Medications (Trade) Dose Ordered Sig/Darya Route PRN Reason Start Time Stop Time Status Last Admin Dose Admin Acetaminophen (Tylenol) 650 mg Q6H PRN ORAL Fever(T>100.5F)/Pain 11/25/18 18:30 12/24/18 18:29 11/26/18 08:40 Apixaban (Eliquis) 5 mg BID ORAL 11/26/18 09:00 12/25/18 10:59 11/30/18 08:20 Dextrose (Dextrose 50%) 25 ml Q30M PRN IV Hypoglycemia 11/25/18 18:30 12/24/18 15:59 Dextrose (Dextrose 50%) 50 ml Q30M PRN IV Hypoglycemia 11/25/18 18:30 12/24/18 15:59 Docusate Sodium (Colace) 100 mg TID ORAL 11/26/18 18:00 12/24/18 20:59 Insulin Aspart (NovoLOG) BEFORE MEALS AND HS SUBQ 11/25/18 21:00 12/24/18 16:29 Ondansetron HCl (Zofran) 4 mg Q4H PRN IVP Nausea & Vomiting 11/25/18 18:30 12/24/18 18:29 Pantoprazole (Protonix) 40 mg EVERY 12 HOURS ORAL 11/26/18 21:00 12/24/18 15:59 11/30/18 08:20 Prednisone (predniSONE) 30 mg DAILY ORAL 11/27/18 09:00 12/27/18 08:59 11/30/18 08:20 Height (Feet): 6 Height (Inches): 2.00 Weight (Pounds): 161 General Appearance: no apparent distress Cardiovascular: normal rate Respiratory/Chest: decreased breath sounds Objective no change Jimenez Mosqueda MD Nov 30, 2018 13:20
--- NOTE | 2018-11-30 13:28 | NUR ---
*-* INSURANCE *-* UPDATED CLINICALS AND REVIEWS HAVE BEEN FAXED TO: [facility]#[id number] Mounter Clarinets: Mary ext. [phone]
--- NOTE | 2018-11-30 13:32 | NUR ---
NURSE NOTES: unbable to determine what the "homeless waiver" is located. Called Chiqui from social work but she is gone for the day. Mary Beth who is covering for her also is unaware of that form. Homeless checklist was completed. Addendum: 11/30/18 at 1539 by Nasrin Hardin RN Amendment: "unable"
--- NOTE | 2018-11-30 14:50 | NUR ---
NURSE NOTES: Pt discharged in stable condition, ambulatory and provided with taxi services. Belongings list reviewed and signed with patient. IV removed. lunchroom monitor was removed earlier by Ryley and returned to unit.
--- NOTE | 2018-11-30 20:59 | Discharge Summary ---
Discharge Summary Discharge Summary _ DATE OF ADMISSION: 11/24/2018 DATE OF DISCHARGE: 11/30/2018 DISCHARGED BY: REASON FOR ADMISSION: 57 years old male with past medical history of COPD, asthma, diabetes mellitus, hypertension, hypothyroidism, DVT, presented with shortness of breath for the last 2 days. Patient apparently lost his steroid inhaler, which he was using on a daily basis. Upon arrival patient was severely short of breath. In route to the hospital patient received two treatment with albuterol. Patient denied fever or chills. Patient denied nausea, vomiting, diarrhea. Patient does report some chest discomfort due to shortness of breath. Patient reported being on Coumadin due to lower extremity DVT. Patient reported compliance with medication. Upon evaluation pulse oximetry was stable on room air. Blood pressure was 124/93. Patient was afebrile. Laboratory work-up revealed leukocytosis WBC 12.9, hemoglobin 13.8, hematocrit 44.5, platelet count 181. Chemistry revealed BUN 32, creatinine 1.0, stable electrolytes. Glucose 74. Stable LFT. Troponin 0.021. pro BNP 921. EKG revealed sinus rhythm, no acute ischemic changes. Chest x-ray demonstrated no acute cardiopulmonary pathology. CT angiogram of the chest revealed COPD changes and was positive for bilateral, right greater than left, pulmonary emboli. Ectasia of the renal arteries and positive RV to LV ratio raised concern for submassive pulmonary emboli. However, pulmonary artery ectasia could also indicate pulmonary hypertension related to COPD. 9 mm masslike opacity in the left upper lobe noted. No infiltrates, no effusion, no definite congestion. Subcentimeter low-attenuation liver lesions, too small to characterize, most likely benign simple cyst or bile hamartomas. In emergency department patient started on heparin bolus and heparin drip, received another nebulizing treatment, started on IV Solu-Medrol and was placed on the BiPAP. Patient was at risk for respiratory failure and unstable for transfer to [facility]. CONSULTANTS: pulmonary Dr. Wagner marketer Dr. Mosqueda distance education director/oncologist Dr. Devries [facility] COURSE: Patient admitted to monitored floor. Patient was on heparin drip as per pharmacy. Supplemental oxygen titrated to keep pulse oximetry above 92%. Bronchodilator treatment provided [id number] and as needed. Patient started on IV Solu-Medrol with gradual tapering down. Echocardiogram demonstrated preserved ejection fraction of 60%. Normal left ventricular chamber size, systolic function and wall motion to the extent visualized. No left ventricular hypertrophy. No evidence of pericardial effusion. Right ventricular systolic pressure of 12. Venous duplex bilateral lower extremity revealed bilateral DVT. Blood pressure remained stable. Felt Hat Inspector And Packer followed. Patient was slowly hydrated. Renal parameters and electrolytes were closely monitored. Electrolytes corrected as needed, and nephrotoxins were avoided. Prior to discharge BUN from 32 down to 22, creatinine remained stable. Leukocytosis was likely reactive due to steroids and resolved. Urinalysis revealed no evidence of UTI. Blood sugar was managed with the sliding scale of insulin. GI prophylaxis provided. Risk Manager/oncologist followed. Patient was switched from heparin drip to Eliquis. IV steroids changed to prednisone. For 9 mm masslike opacity in the left upper lobe, oncologist recommended PET/CT imaging or 3-month follow-up with conventional CT. Pain management was addressed as needed. Supportive care provided. Patient was able to be weaned from BiPAP to nasal cannula and eventually to room air. Pulse oximetry was stable on room air. Reinforced compliance with anticoagulation. Patient was instructed to report any signs of bleeding. Hemoglobin and hematocrit remained stable, prior to discharge hemoglobin 13.1, hematocrit 42.3. Patient stabilized and was ready for discharge home FINAL DIAGNOSES: Acute hypoxic respiratory failure-resolved Bilateral pulmonary emboli Acute bilateral DVT COPD exacerbation Left upper lobe 9mm masslike opacity Diabetes mellitus. DISCHARGE MEDICATIONS: See Medication Reconciliation list. DISCHARGE INSTRUCTIONS: Patient was discharged home. Follow up with primary care provider in one week. Reinforced compliance with medication I have been assigned to dictate discharge summary for this account. I was not involved in the patient's management. Smitha Martinez NP Nov 30, 2018 20:59
--- NOTE | 2018-11-30 22:09 | Pulmonolgy Critical Care Note ---
Critical Care - Asmt/Plan Assessment/Plan: Pulmonary Critical Care Progress Note HPI Patient is a 57 year old man with a past medical history of COPD, recently diagnosed left lower extremity DVT - not complaint on Coumadin. Patient uses a steroid inhaler daily, he recently lost his inhaler. He has been feeling short of breath for the last 1-2 days Patient denies cough, hemoptysis, fever. Denies any nausea vomiting diarrhea chills. No other complaints are noted. No shortness of breath Noted to have a Pulmonary Embolism on CTA in the ED, no focal infiltrates on CXR. LE dupplex bilateral proximal DVT Denies SOB, O2 being weaned, RA PaO2 adequate on RA, no new complaints Echo: LVEF 60%, PAP 12 Allergies: PENICILLINS Past Medical History: DM, HTN, asthma, COPD, Hyperthyroidism, DVT, CVA, Abdominal surgery 2013 All Other Systems: negative except mentioned in HPI LESS sob Physical Exam Vital Signs Noted General Appearance: alert, mild distress Head: normocephalic, atraumatic Eyes: bilateral eye normal inspection ENT: normal ENT inspection, hearing grossly normal, normal voice Neck: normal inspection, full range of motion, supple, no bony tend Respiratory: respiratory distress, decreased breath sounds, occasional wheezing Cardiovascular: no edema, tachycardia, HS1, HS2 normal Gastrointestinal: normal inspection, normal bowel sounds, non tender, soft, no guarding, no hernia Musculoskeletal: normal inspection, back normal, normal range of motion Neurologic: normal inspection, alert, responsive Skin: no rash, no edema Impression: Bilateral Pulmonary Embolism Bilateral proximal DVT Hypoxic Respiratory failure, acute Chronic Obstructive Pulmonary Disease exacerbation Left Upper Lobe 9mm possibly inflammatory Pulmonary Nodule Diabetes Hypertension history Hyperthyroidism history Plan: Eliiquis 5MG bid HHN Medrol dose pack Symbicort 160/4.5 2p bid Albuterol PRN Hematology FU as OP Pulmonary FU as OP - given contact numebr [address] chest for Pulmonary Nodule Labs Noted EKG: Rate: normal Rhythm: NSR ST Segments: no acute changes Chest XR: No acute disease CT Chest : Positive pulmonary embolism bilaterally, R>L, possible 9mm inflammatory nodule TRAVIS - will need 3 month follow up. LE dupplex: bilateral proximal DVT Seen earlier Critical Care - Objective Last 24 Hour Vital Signs Date Time Temp Pulse Resp B/P (MAP) Pulse Ox O2 Delivery O2 Flow Rate FiO2 11/30/18 12:00 98.2 79 16 119/77 (91) 98 11/30/18 09:00 Room Air 11/30/18 08:00 97.5 78 18 129/84 (99) 97 11/30/18 08:00 76 11/30/18 04:00 73 11/30/18 04:00 97.3 79 20 116/76 (89) 96 11/30/18 00:00 78 11/30/18 00:00 97.2 82 20 136/79 (98) 96 Accucheck: 113 Critical Care - Subjective ROS Limited/Unobtainable: No FI02: 21 Vent Support Breath Rate: 12 Vent Support Mode: BiLevel Sputum Amount: None I&O: Intake and Output 11/29/18 11/30/18 18:59 06:59 Intake Total 560 ml Output Total 600 ml Balance -40 ml Intake Oral 360 ml IV Total 100 ml Other 100 ml Output Urine Total 600 ml # Voids 1 2 # Bowel Movements 1 1 Suman Wagner MD Nov 30, 2018 22:09
--- NOTE | 2018-12-02 15:14 | NUR ---
*-* INSURANCE *-* DISCHARGE SUMMARY HAS BEEN FAXED TO: [facility]#[id number] Assurance Analyst: Mary ext. [phone]
== END 2018-11-30 14:55 | disposition home or self-care (01) | DRG 140 ==
LOC: EDBD 07:58 → EMR 08:05 → EDBEDREQ 08:27 → EDBEDREQSVC 08:28 → ICU 10:46 → EDBEDREQ 13:16 → EDBEDREQSVC 13:16 → EDBEDREQ 14:29 → ICU 11-25 02:46 → 2E 11-25 18:20
DX: J44.1 Chronic obstructive pulmonary disease with (acute) exacerbation (principal); I26.99 Other pulmonary embolism without acute cor pulmonale; J96.01 Acute respiratory failure with hypoxia; R91.1 Solitary pulmonary nodule; I82.403 Acute embolism and thrombosis of unspecified deep veins of lower extremity, bilateral; R91.8 Other nonspecific abnormal finding of lung field; E11.9 Type 2 diabetes mellitus without complications; Z59.0 Homelessness; Z88.0 Allergy status to penicillin; Z79.01 Long term (current) use of anticoagulants; Z91.14 Patient's other noncompliance with medication regimen; F17.200 Nicotine dependence, unspecified, uncomplicated; E05.90 Thyrotoxicosis, unspecified without thyrotoxic crisis or storm
CPT/HCPCS: 36415; 36600; 71045; 71275; 80048; 80053; 80061; 81001; 82378; 82550; 82553; 82607; 82728; 82746; 82803; 82962; 82977; 83036; 83540; 83550; 83690; 83735; 83880; 84100; 84439; 84443; 84481; 84484; 84550; 85007; 85025; 85610; 85730; 86140; 87081; 93005; 93306; 93970; 94640; 94664; 96365; 96366; 96375; 99291; 99292; J1815; J7620